=== PATIENT | male | born 1935 | race Caucasian/White ===

== ENCOUNTER 2017-09-13 08:54 | Observation (INO) | payer MEDICARE ==
[2017-09-13] MEDS ORDERED: Nitroglycerin 0.4 MG TAB (25 Tab Bottle) ONE (09:09)
[2017-09-13] MEDS ORDERED: Nitroglycerin 2% Ointment 1 INCH/1 GM Packet ONE (09:09)
[2017-09-13] MEDS ORDERED: Labetalol HCl 100 MG/20 ML VIAL ONE (09:09)
[2017-09-13 09:45] LABS: ALT (SGPT) 18 U/L (8-55); AST (SGOT) 26 U/L (5-34); Albumin 4.3 g/dL (3.4-4.8); Alkaline Phosphatase 59 U/L (40-150); Anion Gap 14 mmol/L (10-20); BUN (Urea Nitrogen) 35 mg/dL (8.4-25.7); Bilirubin, Total 0.8 mg/dL (0.2-1.2); CK (CPK) 87 U/L (30-200); Calc. Creatinine Clearance 0 mL/min (70-130); Calcium 9.9 mg/dL (7.8-10.44); Carbon Dioxide 26 mmol/L (23-31); Chloride 106 mmol/L (98-107); Estimated GFR-MDRD 32; Globulin 3.2 g/dL (2.4-3.5); Glucose 126 mg/dL (83-110); Potassium 5.2 mmol/L (3.5-5.1); Protein, Total 7.5 g/dL (5.8-8.1); Sodium 141 mmol/L (136-145)
[2017-09-13 09:47] LABS: Band 6 % (5-11); Eosinophils 3 % (0-10); Hemoglobin 13.5 g/dL (14.0-18.0); Lymphocytes 46 % (21-51); MDiff Complete? YES; Mean Corpuscular Volume 87.6 fl (80.0-94.0); Mean Platelet Volume 9.6 fL (7.4-10.4); Monocytes 11 % (0-10); Neutrophil 34 % (42-75); PLT Morphology Comment Appears Decreased; Platelet Count 68 thou/uL (130-400); RBC Distribution Width 18.2 % (11.5-14.5); Red Blood Cell (RBC) Count 4.65 mill/uL (4.70-6.10)
[2017-09-13 09:52] LABS: Troponin I 0.035 ng/mL (< 0.028)
[2017-09-13 09:54] LABS: CKMB 7.4 ng/mL (0-6.6)
--- NOTE | 2017-09-13 10:21 | RAD ---
CHEST 1 VIEW: HISTORY: Chest pain. COMPARISON: 03/19/17. FINDINGS: Cardiac silhouette is magnified and enlarged. Shallow inspiration accentuates the pulmonary markings . Mediastinum is midline. Postoperative changes and dual-lead left subclavian cardiac electronic de vice are in place. cardiac monitor technician leads overlie the chest. IMPRESSION: Cardiomegaly. Chronic-type findings are stable. POS: [facility]
--- NOTE | 2017-09-13 13:21 | PDOC.EVN ---
Event Note - Event Note Event Note: [id number] H&P DICTATED 1. htn UNCONTROLLED 2.CKD 3. H/O CAD plan; see orders
[2017-09-13] MEDS ORDERED: Ondansetron HCl/PF 4 MG/2 ML Vial IVP PRN (13:22)
[2017-09-13] MEDS ORDERED: HYDROcodone/Acetaminophen 5/325 mg Tablet PO PRN (13:22)
[2017-09-13] MEDS ORDERED: Acetaminophen 325 MG TAB PO PRN (13:22)
[2017-09-13] MEDS ORDERED: hydrALAZINE 20 MG/ML VIAL SLOW IVP PRN (13:26)
[2017-09-13 16:08] LABS: Troponin I 0.047 ng/mL (< 0.028)
--- NOTE | 2017-09-13 18:49 | HP ---
DATE OF ADMISSION: 09/13/2017 CHIEF COMPLAINT: Elevated blood pressure. HISTORY OF PRESENT ILLNESS: The patient is an 82-year-old male with past medical history of hypertension, coronary artery disease, aortic stenosis, congestive heart failure, prostate CA, atrial fibrillation, now came to the hospital complaining of elevated blood pressure. The patient said he checked his blood pressure at home and it was elevated. Patient denies any palpation. Denies any dizziness. Blood pressure was around 200/120, that is why he came to the ER. Denies any nausea, denies any vomiting, denies any diarrhea, denies any bloody stools, denies any black stools. PAST MEDICAL HISTORY: As per HPI. PAST SURGICAL HISTORY: Aortic valve replacement, prostatectomy, cardiac ablation, and CABG. SOCIAL HISTORY: Denies smoking, denies alcohol, denies any drugs at this time, but drinks wine one to two glasses every day. MEDICATIONS: Reviewed. ALLERGIES: Allergies reviewed. REVIEW OF SYSTEMS: Constitutional: Denies any fever, denies any chills. Eyes : No vision problems. He denies hearing loss. Denies neck pain. Cardiovascular System: Denies any chest pain. Respiratory System: Denies any cough, expectoration. Gastrointestinal: Denies nausea or vomiting. Musculoskeletal: Denies any joint deformities. Integumentary: Denies any rash. Genitourinary: Denies dysuria. All other review of systems are reviewed and are negative. PHYSICAL EXAMINATION: CONSTITUTIONAL/VITAL SIGNS: At the time of H and P performed, blood pressure initially was 180/100, came down to 140/90, respiratory rate 18. GENERAL: The patient appears comfortable. HEENT: Pupils equal, round, and reactive. Anterior naris patent. NECK: Supple, no JVD. CARDIOVASCULAR SYSTEM: S1, S2 present. Regular rate and rhythm. Positive for murmurs, no rubs, no gallops. RESPIRATORY SYSTEM: No wheezing, no rhonchi. Breath sounds present bilaterally. GASTROINTESTINAL: Abdomen is soft, nontender, no guarding, no organomegaly, no masses felt. MUSCULOSKELETAL: No edema, chronic skin changes seen. PSYCHIATRIC: Mood is appropriate at this time. INTEGUMENT: Positive for chronic skin changes. GENITOURINARY: No suprapubic tenderness. LABORATORY DATA: At the time of H&P performed, sodium 141, potassium 5.2, chloride 106, CO2 of 26, BUN of 35, creatinine 2.03, troponin 0.040. BNP 258. White count 2, hemoglobin 13.5, platelet count is 68. Chest x-ray, no obvious infiltrates seen. ASSESSMENT AND PLAN: The patient is 88 years old male, 1. Hypertension, uncontrolled. Blood pressure improved at this time. Monitor blood pressure. We will continue home medications. We will do p.r.n. clonidine also. 2. Abnormal cardiac enzymes. Monitor serial cardiac enzymes, no further workup needed at this time. might be secondary to uncontrolled hypertension. We will monitor. 3. Chronic kidney disease, stage 4. Monitor creatinine closely. Repeat BMP in a.m. We will go ahead and consult Nephrology if creatinine worsens. 4. History of coronary artery disease. Continue aspirin. 5. Mild hyperkalemia, monitor level at this time. 6. History of atrial fibrillation, monitor heart rate. Place patient on telemetry. The case was discussed in detail with the patient. ELKIN
[2017-09-13 18:56] VITALS: BMI 29.3
[2017-09-13] MEDS: Apixaban 5 MG TAB PO SCH (20:19)
[2017-09-13] MEDS: Carvedilol 25 MG TAB PO SCH (20:20)
[2017-09-13] MEDS ORDERED: Calcium Chloride 1 GM/10 ML Abboject SYRINGE ONE (21:06)
[2017-09-13 22:12] LABS: Troponin I 0.062 ng/mL (< 0.028)
[2017-09-14 05:29] LABS: Anion Gap 13 mmol/L (10-20); BUN (Urea Nitrogen) 32 mg/dL (8.4-25.7); Calc. Creatinine Clearance 39 mL/min (70-130); Calcium 9.2 mg/dL (7.8-10.44); Carbon Dioxide 26 mmol/L (23-31); Chloride 106 mmol/L (98-107); Estimated GFR-MDRD 34; Glucose 105 mg/dL (83-110); Potassium 4.5 mmol/L (3.5-5.1); Sodium 140 mmol/L (136-145)
[2017-09-14 06:30] LABS: Band 2 % (5-11); Eosinophils 1 % (0-10); Hemoglobin 11.9 g/dL (14.0-18.0); Lymphocytes 31 % (21-51); MDiff Complete? YES; Mean Corpuscular HGB CONC 33.9 g/dL (32.0-36.0); Mean Corpuscular Hemoglobin 29.7 pg (27.0-31.0); Mean Corpuscular Volume 87.4 fl (80.0-94.0); Mean Platelet Volume 9.6 fL (7.4-10.4); Monocytes 23 % (0-10); Neutrophil 41 % (42-75); PLT Morphology Comment Appears Decreased; Platelet Count 64 thou/uL (130-400); RBC Distribution Width 17.8 % (11.5-14.5); Reactive Lymphocytes 2 % (0-10); Red Blood Cell (RBC) Count 3.99 mill/uL (4.70-6.10); White Blood Cell (WBC) Count 2.8 thou/uL (4.8-10.8)
[2017-09-14] MEDS ORDERED: Furosemide 40 MG TAB PO SCH (07:30)
[2017-09-14] MEDS: Carvedilol 25 MG TAB PO SCH (08:33)
[2017-09-14] MEDS: Apixaban 5 MG TAB PO SCH (08:34)
[2017-09-14] MEDS ORDERED: Atorvastatin Calcium 20 MG TAB PO SCH (09:00)
[2017-09-14] MEDS ORDERED: Calcitriol 0.25 MCG CAP PO SCH (09:00)
[2017-09-14] MEDS ORDERED: Aspirin 81 mg Enteric Coated Tablet PO SCH (09:00)
[2017-09-14] MEDS ORDERED: NIFEdipine XL 60 MG TAB PO SCH (09:00)
[2017-09-14] MEDS ORDERED: Gabapentin 300 MG CAP PO SCH ×2 (11:45→21:00)
[2017-09-14 12:26] VITALS: TEMP 97.5
--- NOTE | 2017-09-14 13:08 | PDOC.PN ---
- Subjective Encounter Start Date: 09/14/17 Encounter Start Time: 13:07 Subjective: Seen and examined eager to go home - Objective Vital Signs & Weight: Vital Signs (12 hours) Temp Pulse Resp BP Pulse Ox 09/14/17 12:02 97.5 F L 85 16 180/90 H 98 09/14/17 08:34 71 09/14/17 08:05 97.4 F L 71 16 09/14/17 07:38 97.4 F L 70 16 159/86 H 94 L 09/14/17 03:15 98.8 F 71 16 168/79 H 93 L Weight Weight 198 lb 14.4 oz I&O: 09/13/17 09/14/17 09/15/17 06:59 06:59 06:59 Intake Total 240 Output Total 900 500 Balance -660 -500 Result Diagrams: 09/14/17 04:30 09/14/17 04:30 Phys Exam - Physical Examination Constitutional: NAD HEENT: PERRLA, moist MMs, sclera anicteric, oral pharynx no lesions Neck: no nodes, no JVD, supple, full ROM Respiratory: no wheezing, no rales, no rhonchi, clear to auscultation bilateral Cardiovascular: RRR, no significant murmur, no rub Gastrointestinal: soft, non-tender, no distention, positive bowel sounds Musculoskeletal: no edema, pulses present Dx/Plan (1) Acute diastolic (congestive) heart failure Code(s): I50.31 - ACUTE DIASTOLIC (CONGESTIVE) HEART FAILURE Status: Acute (2) CAD (coronary artery disease) Code(s): I25.10 - ATHSCL HEART DISEASE OF [place] CORONARY ARTERY W/O ANG PCTRS Status: Chronic Qualifiers: (3) CKD (chronic kidney disease) stage 3, GFR 30-59 ml/min Code(s): N18.3 - CHRONIC KIDNEY DISEASE, STAGE 3 (MODERATE) Status: Chronic (4) Dyslipidemia Code(s): E78.5 - HYPERLIPIDEMIA, UNSPECIFIED Status: Chronic (5) HTN (hypertension) Code(s): I10 - ESSENTIAL (PRIMARY) HYPERTENSION Status: Chronic Qualifiers: - Plan plan discussed w/ family, PT/OT, social work nurse Increase coreg to 25mg Bid--give extra dose of 12.5mg now -: Dispo planning * .
[2017-09-14] MEDS ORDERED: Carvedilol 6.25 MG TAB PO SCH (13:15)
[2017-09-14 14:34] VITALS: BP 138/70
[2017-09-14] MEDS ORDERED: Carvedilol 25 MG TAB PO SCH (21:00)
--- NOTE | 2017-09-15 14:06 | DIS ---
For details of the history and physical, refer to dictations on record. SUMMARY: This is an 82-year-old gentleman who presented here with elevated blood pressure, got admit maria g for management of this blood pressure. The patient responded very well to resumption of patient' s home antihypertensive medication. Coreg was subsequently increased to 25 mg b.i.d. The patient is very eager to go home and was subsequently discharged on the following medications: Eliquis 2.5 mg b.i.d., aspirin 81 mg, atorvastatin 20 mg, calcitriol 0.25 mcg, Coreg 25 mg p.o. b.i.d., vitamin B12 500 mg p.o. b.i.d., furosemide 40 mg p.o. daily, Neurontin 600 mg p.o. b.i.d., magnesium oxide, potas sium 9 p.o. daily, and Flomax 0.4 mg p.o. daily. DISCHARGE INSTRUCTIONS: 1. Patient to follow up with primary care physician. 2. Patient to represent here in case of any relapse or deterioration in clinical condition. Total time spent including [id number] encounter was 31 minutes.
--- NOTE | 2017-11-12 14:38 | EKG ---
Test Reason : Blood Pressure : / mmHG Vent. Rate : 088 BPM Atrial Rate : 088 BPM P-R Int : 162 ms QRS Dur : 166 ms QT Int : 440 ms P-R-T Axes : 035 -82 110 degrees QTc Int : 532 ms AV sequential or dual chamber electronic pacemaker Confirmed by KHADRA MONTEMAYOR, KELY Cr ([id number]), assignment editor KURT BAUTISTA ([id number]) on 11/12/2017 2:38:07 PM Referred By: Confirmed By:KELY GAVIRIA MD
== END 2017-09-14 16:18 | disposition home or self-care (01) ==
LOC: ERS 08:54 → ERHOLD 10:52 → INTOOBSV 10:52 → 2SW 18:52
PROVIDERS: ADMIT Internal Medicine; ATTEND Internal Medicine
DX: I13.0 Hypertensive heart and chronic kidney disease with heart failure and stage 1 through stage 4 chronic kidney disease, or unspecified chronic kidney disease (principal); N18.3 Chronic kidney disease, stage 3 (moderate); I50.31 Acute diastolic (congestive) heart failure; I25.10 Atherosclerotic heart disease of native coronary artery without angina pectoris; I35.0 Nonrheumatic aortic (valve) stenosis; I48.91 Unspecified atrial fibrillation; E87.5 Hyperkalemia; Z88.0 Allergy status to penicillin; Z88.8 Allergy status to other drugs, medicaments and biological substances; Z98.49 Cataract extraction status, unspecified eye; Z95.0 Presence of cardiac pacemaker; Z95.2 Presence of prosthetic heart valve; Z95.1 Presence of aortocoronary bypass graft; Z90.79 Acquired absence of other genital organ(s); Z89.421 Acquired absence of other right toe(s); Z98.890 Other specified postprocedural states
CPT/HCPCS: 71045; 80048; 80053; 82550; 82553; 83880; 84484 ×2; 85025 ×2; 93005; 96374; 99285; G0378; 36415

== ENCOUNTER 2017-09-20 17:48 | Emergency (ER) | payer MEDICARE ==
[2017-09-20 18:41] LABS: Hemoglobin 13.1 g/dL (14.0-18.0); Mean Corpuscular HGB CONC 32.4 g/dL (32.0-36.0); Mean Corpuscular Volume 89.7 fl (80.0-94.0); Mean Platelet Volume 9.5 fL (7.4-10.4); Platelet Count 72 thou/uL (130-400); RBC Distribution Width 18.1 % (11.5-14.5); Red Blood Cell (RBC) Count 4.51 mill/uL (4.70-6.10); White Blood Cell (WBC) Count 2.3 thou/uL (4.8-10.8)
[2017-09-20 18:51] LABS: ALT (SGPT) 15 U/L (8-55); AST (SGOT) 22 U/L (5-34); Albumin 4.1 g/dL (3.4-4.8); Alkaline Phosphatase 58 U/L (40-150); Anion Gap 12 mmol/L (10-20); BUN (Urea Nitrogen) 23 mg/dL (8.4-25.7); Bilirubin, Total 0.9 mg/dL (0.2-1.2); Calc. Creatinine Clearance 0 mL/min (70-130); Calcium 9.2 mg/dL (7.8-10.44); Carbon Dioxide 26 mmol/L (23-31); Chloride 110 mmol/L (98-107); Estimated GFR-MDRD 41; Globulin 3.1 g/dL (2.4-3.5); Glucose 107 mg/dL (83-110); Potassium 5.1 mmol/L (3.5-5.1); Protein, Total 7.2 g/dL (5.8-8.1); Sodium 143 mmol/L (136-145)
[2017-09-20 18:56] LABS: Anisocytosis MODERATE=16-30 cells (100X) (0-5/hpf); Band 6 % (5-11); Elliptocytes SLIGHT = 2-5 cells (100X) (0-1/hpf); Eosinophils 2 % (0-10); Lymphocytes 27 % (21-51); MDiff Complete? YES; Monocytes 8 % (0-10); Neutrophil 40 % (42-75); Ovalocytes SLIGHT = 2-5 cells (100X) (0-1/hpf); PLT Morphology Comment Appears Decreased; Polychromasia SLIGHT = 2-3 cells (100X) (0-2/hpf); Reactive Lymphocytes 17 % (0-10); Tear Drops SLIGHT = 2-5 cells (100X) (0-1/hpf)
[2017-09-20 19:00] LABS: CKMB 5.4 ng/mL (0-6.6); Troponin I 0.064 ng/mL (< 0.028)
--- NOTE | 2017-09-20 19:13 | RAD ---
PORTABLE CHEST: Date: 09/20/17 HISTORY: High blood pressure. COMPARISON: 09/13/17. FINDINGS: Heart size appears slightly enlarged. Postop sternotomy change and pacemaker. The lungs are clear of infiltrates. No signs of failure. IMPRESSION: Stable chest. POS: [facility]
== END 2017-09-20 19:49 | disposition home or self-care (01) ==
LOC: ERS 17:48
DX: I10 Essential (primary) hypertension (principal); I25.10 Atherosclerotic heart disease of native coronary artery without angina pectoris; I48.91 Unspecified atrial fibrillation; E11.9 Type 2 diabetes mellitus without complications; Z79.899 Other long term (current) drug therapy; Z79.82 Long term (current) use of aspirin
CPT/HCPCS: 36415; 71045; 80053; 82553; 84484; 85025; 93005

== ENCOUNTER 2017-12-07 11:56 | Day surgery (SDC) | payer MEDICARE ==
[2017-12-07] MEDS ORDERED: Phenylephrine 2.5% Ophth Soln 5 ML BOT ONE (12:11)
== END 2017-12-07 13:40 | disposition home or self-care (01) ==
LOC: SDC/OP 11:56
PROVIDERS: ATTEND Ophthalmology
PROC: 085K3ZZ Destruction of Left Lens, Percutaneous Approach (ICD-10-PCS; principal; 2017-12-07)
PROC: 085J3ZZ Destruction of Right Lens, Percutaneous Approach (ICD-10-PCS; 2017-12-07)
DX: H26.493 Other secondary cataract, bilateral (principal); I10 Essential (primary) hypertension; Z88.0 Allergy status to penicillin; Z88.8 Allergy status to other drugs, medicaments and biological substances; Z79.82 Long term (current) use of aspirin; Z79.899 Other long term (current) drug therapy; Z98.41 Cataract extraction status, right eye; Z98.42 Cataract extraction status, left eye; Z96.1 Presence of intraocular lens

== ENCOUNTER 2017-12-30 10:43 | Day surgery (SDC) | payer MEDICARE ==
[2017-12-30] MEDS ORDERED: Phenylephrine 2.5% Ophth Soln 5 ML BOT ONE (11:14)
[2017-12-30] MEDS ORDERED: Proparacaine 0.5% Opth 15 ML BOT ONE (12:41)
== END 2017-12-30 13:10 | disposition home or self-care (01) ==
LOC: SDC 10:43
PROVIDERS: ATTEND Ophthalmology
PROC: 085K3ZZ Destruction of Left Lens, Percutaneous Approach (ICD-10-PCS; principal; 2017-12-30)
PROC: 085J3ZZ Destruction of Right Lens, Percutaneous Approach (ICD-10-PCS; 2017-12-30)
DX: H26.493 Other secondary cataract, bilateral (principal); I10 Essential (primary) hypertension; Z79.82 Long term (current) use of aspirin; Z79.899 Other long term (current) drug therapy; Z88.0 Allergy status to penicillin; Z88.8 Allergy status to other drugs, medicaments and biological substances; Z98.41 Cataract extraction status, right eye; Z98.42 Cataract extraction status, left eye; Z96.1 Presence of intraocular lens

== ENCOUNTER 2018-08-18 16:40 | Inpatient (IN) | payer MEDICARE ==
[2018-08-18 17:31] LABS: #Basophils 0.1 thou/uL (0.0-0.2); #Lymphocytes 0.3 thou/uL (1.20-3.40); #Monocytes 1.2 thou/uL (0.11-0.59); #Neutrophils 6.5 thou/uL (1.40-6.50); %Basophils 1.7 % (0.0-1.0); %Eosinophils 0.2 % (0.0-10.0); %Lymphocytes 3.8 % (21.0-51.0); %Monocytes 14.9 % (0.0-10.0); %Neutrophils 79.4 % (42.0-75.0); Hemoglobin 10.5 g/dL (14.0-18.0); Mean Corpuscular HGB CONC 34.3 g/dL (32.0-36.0); Mean Corpuscular Hemoglobin 32.5 pg (27.0-31.0); Mean Corpuscular Volume 94.5 fL (78.0-98.0); Mean Platelet Volume 7.9 fL (7.4-10.4); Platelet Count 113 thou/uL (130-400); Red Blood Cell (RBC) Count 3.23 mill/uL (4.70-6.10); White Blood Cell (WBC) Count 8.1 thou/uL (4.8-10.8)
[2018-08-18 17:52] LABS: ALT (SGPT) 16 U/L (8-55); AST (SGOT) 19 U/L (5-34); Albumin 3.3 g/dL (3.4-4.8); Alkaline Phosphatase 54 U/L (40-150); Anion Gap 15 mmol/L (10-20); BUN (Urea Nitrogen) 75 mg/dL (8.4-25.7); Bilirubin, Total 1.3 mg/dL (0.2-1.2); Calc. Creatinine Clearance 0 mL/min (70-130); Calcium 8.7 mg/dL (7.8-10.44); Carbon Dioxide 20 mmol/L (23-31); Chloride 108 mmol/L (98-107); Estimated GFR-MDRD 24; Glucose 142 mg/dL (83-110); Potassium 4.9 mmol/L (3.5-5.1); Protein, Total 6.3 g/dL (5.8-8.1); Sodium 138 mmol/L (136-145)
--- NOTE | 2018-08-18 19:20 | RAD ---
PORTABLE CHEST: 08/18/2018 PROVIDED CLINICAL HISTORY: Hypotension. COMPARISON: 12/30/2017 FINDINGS: The cardiac silhouette appears enlarged. Median sternotomy changes are seen. Left subclavian cardia c pacing device and atherosclerosis are redemonstrated. Consolidation in the left upper lung zone is noted, compatible with pneumonia in the appropriate clinical context. The lungs appear otherwise cl ear. No pleural fluid or pneumothorax apparent. IMPRESSION: Left upper lung zone consolidation, compatible with pneumonia in the appropriate clinical context. Followup after treatment is recommended to evaluate for resolution. POS: [facility]
[2018-08-18 19:27] LABS: Bilirubin Negative (Negative); Blood, Urine Negative (Negative); Clarity CLEAR (Clear); Glucose, Urine (Dipstick) Negative (Negative); Leukocyte Negative (Negative); Nitrite Negative (Negative); Protein, Urine (Dipstick) Negative (Neg-Trace); Specific Gravity, Urine 1.017 (1.002-1.036); pH, Urine 5.5 (5.0-9.0)
[2018-08-18] MEDS ORDERED: cefTRIAXone\\ROCEPHIN 2 GM VIAL ONE (20:42)
[2018-08-18] MEDS ORDERED: Azithromycin 500 MG VIAL ONE (20:42)
[2018-08-18] MEDS ORDERED: Bisacodyl 5 MG TAB PO PRN (23:37)
[2018-08-18] MEDS ORDERED: Guaifenesin DM 100-10/5 ML UDCUP PO PRN (23:37)
[2018-08-18] MEDS ORDERED: Ondansetron ODT 4 MG TAB PO PRN (23:37)
[2018-08-18] MEDS ORDERED: Acetaminophen 650 MG Suppository PR PRN (23:37)
[2018-08-18] MEDS ORDERED: Ondansetron PF 4 MG/2 ML Vial IVP PRN (23:37)
[2018-08-18] MEDS ORDERED: Senokot S 8.6-50 MG TAB PO PRN (23:37)
[2018-08-18] MEDS: Oseltamivir 75 MG CAP PO SCH (23:42)
[2018-08-19 00:25] LABS: Carboxyhemoglobin (COHb) 1.5 gm% (0.0-3.0); Hemoglobin (Hb) 11.3 g/dL (14.0-18.0); Potassium - ABG Lab 5.06 mmol/L (3.70-5.30)
[2018-08-19] MEDS: Sodium Chloride 0.9% 1,000 ML IV SCH ×2 (00:59→21:09)
[2018-08-19 03:31] LABS: O2 Tension (PaO2) 59.2 mmHg (> 60.0); Puncture Site RBRACHIAL
[2018-08-19 05:40] LABS: ALT (SGPT) 15 U/L (8-55); AST (SGOT) 17 U/L (5-34); Alkaline Phosphatase 53 U/L (40-150); Anion Gap 14 mmol/L (10-20); BUN (Urea Nitrogen) 77 mg/dL (8.4-25.7); BUN/Creatinine Ratio 29.85; Bilirubin, Total 1.4 mg/dL (0.2-1.2); Calc. Creatinine Clearance 29 mL/min (70-130); Calcium 8.2 mg/dL (7.8-10.44); Carbon Dioxide 21 mmol/L (23-31); Chloride 109 mmol/L (98-107); Estimated GFR-MDRD 24; Globulin 2.9 g/dL (2.4-3.5); Glucose 147 mg/dL (83-110); Phosphorus 3.8 mg/dL (2.3-4.7); Protein, Total 5.9 g/dL (5.8-8.1); Sodium 139 mmol/L (136-145)
[2018-08-19 05:55] LABS: Band 25 % (5-11); Hemoglobin 9.8 g/dL (14.0-18.0); Lymphocytes 5 % (21-51); MDiff Complete? YES; Mean Corpuscular HGB CONC 33.2 g/dL (32.0-36.0); Mean Corpuscular Hemoglobin 31.9 pg (27.0-31.0); Mean Corpuscular Volume 96.2 fL (78.0-98.0); Mean Platelet Volume 8.1 fL (7.4-10.4); Monocytes 19 % (0-10); Neutrophil 51 % (42-75); Platelet Count 110 thou/uL (130-400); Platelet Morphology Comment Appears Decreased; RBC Distribution Width 15.4 % (11.5-14.5); Red Blood Cell (RBC) Count 3.07 mill/uL (4.70-6.10); White Blood Cell (WBC) Count 9.7 thou/uL (4.8-10.8)
--- NOTE | 2018-08-19 08:10 | HP ---
CHIEF COMPLAINT: Hypotension. HISTORY OF PRESENT ILLNESS: This is an 83-year-old male with past medical history of coronary artery disease, atrial fibrillation, hypertension, prostate CA with resection, peripheral vascular disease, neuropathy, status post pacemaker, presenting with hypotension. Per the patient, he has not been feeling well in the past couple of days. The patient states that he started getting jitters and he could not control himself. The patient stated that he started fidgeting, having intense jitters and that has been ongoing for the past 3 weeks. The patient states that he checked his blood pressure on the day of admission and felt his blood pressure was low. The patient states that he has also been sleeping a lot more and he has been having productive cough, orange in color, and subjective fevers. Per the patient, he states that he recently noted that he has been very weak. He has not been able to really walk. He has been having bilateral knee problems and feeling very weak. Per records, the patient had a fever that was measured at 101 on the day of admission. At this time, the patient denies any headaches, chest pain, palpitations, abdominal pain, dysuria, hematuria, hematochezia, nausea, vomiting, constipation, or diarrhea. However, the patient admits to having generalized weakness, productive cough, fever, and chills. Of note, the patient was recently seen in our hospital on September 13, 2017, and the patient was seen for elevated blood pressure during that time, in which we adjusted the patient's blood pressure medications. REVIEW OF SYSTEMS: Positive for fever, chills, generalized weakness, productive cough. Otherwise as documented in the HPI, all other systems has been reviewed and are negative. PAST MEDICAL HISTORY: Coronary artery disease; atrial fibrillation; hypertension; prostate CA, status post surgery; peripheral vascular disease; neuropathy; and pacemaker. FAMILY HISTORY: Reviewed and noncontributory to this visit. PAST SURGICAL HISTORY: The patient has cataract bilaterally, prostatectomy, right digit amputation, cardiac ablation in the past, CABG x2, and valvular replacement. PSYCHIATRIC HISTORY: No psychiatric history. SOCIAL HISTORY: The patient drinks daily. The patient denies any illicit drugs. The patient denies any smoking history and the patient lives at home. ALLERGIES: THE PATIENT IS ALLERGIC TO AMBIEN AND PENICILLIN. CURRENT MEDICATIONS: The patient takes; 1. Carvedilol 25 mg. 2. Atorvastatin 20 mg. 3. Gabapentin 600 mg. 4. Restasis 0.4 mL in both eyes. 5. Furosemide 40 mg. 6. Nifedipine 30 mg. 7. Losartan 50 mg. 8. Eliquis 2.5 mg. PHYSICAL EXAMINATION: VITAL SIGNS: The patient's blood pressure is 125/70, pulse is 82, respiratory rate of 20, temperature of 99.4, and oxygen saturation of 98% on non-breather. GENERAL: The patient is awake, alert, and oriented x3. The patient is on currently on the BiPAP. The patient has been admitted to the ICU. The patient is able to speak to me in full sentences and not in any distress. HEENT: Normocephalic, atraumatic. Pupils are equally round and reactive to light. Extraocular movements are intact. No scleral icterus. No conjunctival pallor. Mucous membranes are dry. NECK: Trachea is midline. Full range of motion. No JVD. Supple. LUNGS: The patient has bilateral wheezes at the anterior lung pastrana and crackles at the posterior lungs at the bases. CARDIAC: Positive S1 and S2. Regular rate and rhythm. No murmurs, no gallops, no rubs are appreciated. ABDOMEN: Soft, nontender, and nondistended. Positive bowel sounds in all quadrants. EXTREMITIES: The patient has 5/5 upper extremity strength and 5/5 lower extremity strength. No edema noted at the lower extremities. The patient has good pulses bilaterally at the upper and lower extremities. NEUROLOGIC: Cranial nerves II through XII grossly intact. No neurologic deficits noted. PSYCH: The patient has normal affect, pleasant, alert, and oriented x3. SKIN: Dry, warm, and intact. LABORATORY DATA: 1. WBC is 8.1, hemoglobin is 10.5, hematocrit is 30.5, MCV 94.5, RDW is 15.0, and platelet count is 113. 2. ABGs; pH is 7.40, pCO2 is 33.0, and pO2 is 69.2. 3. Electrolytes; sodium is 138, potassium is 4.9, chloride is 108, carbon dioxide of 20, anion gap of 15, BUN is 75, creatinine is 2.61, and glucose is 142. IMAGING DATA: Chest x-ray showed left upper lung zone consolidation compatible with pneumonia. ASSESSMENT AND PLAN: This is an 83-year-old male with multiple comorbidities, being admitted for; 1. Acute hypoxemic respiratory failure likely due to pneumonia and flu. At this point, the patient has been put on BiPAP. The patient has been transferred to the ICU. We will monitor the patient's oxygenation. We will follow up morning ABGs. 2. Sepsis secondary to influenza. At this point, we will start the patient on Tamiflu. We will continue the patient on Tamiflu. Give the patient IV hydration and we will continue the patient on oxygenation. We will follow up on morning labs. We will give p.r.n. medications for fever and chills. 3. Left lung pneumonia likely community-acquired pneumonia. At this point, the patient has been started on antibiotics. We will continue the patient on antibiotics. We will give the patient gentle hydration. We will give IV fluids. We will continue respiratory treatments. Pulmonology has been consulted. We will follow up with their recommendations. 4. Acute on chronic kidney disease. At this point, we are going to continue the patient on gentle hydration. We have consulted Nephrology. We will follow up on renal function test. We will continue to monitor the patient closely. We will hold any nephrotoxic medications and we will adjust all medications renally. 5. History of atrial fibrillation. We will continue the patient on home medications. 6. History of coronary artery disease. We will continue the patient on his home medications. 7. Hyperlipidemia. We will continue the patient on statins. 8. Hypertension. We will monitor the patient's blood pressure closely and we will treat the patient's blood pressure accordingly. 9. Deep vein thrombosis and gastrointestinal prophylaxis. Job ID: [id number]
[2018-08-19] MEDS: Aspirin 81 mg Enteric Coated Tablet PO SCH (08:57)
[2018-08-19] MEDS: Gabapentin 300 MG CAP PO SCH ×2 (08:57→21:09)
[2018-08-19] MEDS: Cyanocobalamin (Vitamin B-12) 1,000 MCG TAB PO SCH ×2 (08:58→21:09)
[2018-08-19] MEDS: Atorvastatin Calcium 20 MG TAB PO SCH (08:59)
[2018-08-19] MEDS: Famotidine 20 MG TAB PO SCH (08:59)
[2018-08-19] MEDS: Carvedilol 25 MG TAB PO SCH ×2 (08:59→21:09)
[2018-08-19] MEDS: Multivitamin W/ Minerals 1 TAB PO SCH (08:59)
[2018-08-19] MEDS: Magnesium Oxide 250 MG TAB PO SCH (09:00)
[2018-08-19] MEDS: Fish Oil 1,000 MG CAP PO SCH (09:00)
[2018-08-19] MEDS: Calcitriol 0.25 MCG CAP PO SCH (09:00)
[2018-08-19] MEDS: Apixaban 2.5 MG TAB PO SCH ×2 (09:00→21:09)
[2018-08-19] MEDS: cycloSPORINE 0.05% Ophthalmic Droperette EA EYE SCH ×2 (09:01→21:58)
[2018-08-19] MEDS: Oseltamivir 6 MG/ML ORAL SUSP PO SCH (09:15)
[2018-08-19] MEDS: Tamsulosin HCl 0.4 MG CAP PO SCH (10:38)
[2018-08-19] MEDS: Famotidine/PF 20 mg/2ml Vial SLOW IVP SCH (10:38)
--- NOTE | 2018-08-19 13:21 | CON ---
DATE OF CONSULTATION: 08/19/2018 35 minutes critical care time. REASON FOR CONSULTATION: Pneumonia and respiratory failure. HISTORY OF PRESENT ILLNESS: Mr. Jason is an 83-year-old male, who was brought into the hospital yesterday with a several-day history of cough, congestion, and mental status changes per the history and physical report. The patient was initially admitted to the floor, had to be brought back to the [facility], to be placed on BiPAP. He has an x-ray showing a rather impressive left upper lobe pneumonia. He also tested positive for type B flu. He denies any previous history of lung problems. He does have a history of cardiac issues including a valve replacement surgery and coronary artery bypass grafting surgery. PAST MEDICAL HISTORY: 1. Coronary artery disease. 2. Valvular heart disease. 3. Neuropathy. PAST SURGICAL HISTORY: 1. Coronary artery bypass grafting surgery. 2. Aortic valve replacement. 3. Prostatectomy. 4. Cardiac ablation. 5. Cataract surgery. PSYCHIATRIC HISTORY: Unremarkable. FAMILY MEDICAL HISTORY: Unremarkable. MEDICATIONS: Prior to admission; 1. Carvedilol 25 mg b.i.d. 2. Atorvastatin 20 mg daily. 3. Gabapentin 600 mg b.i.d. 4. Restasis eye drops. 5. Furosemide 40 mg daily. 6. Nifedipine 30 mg daily. 7. Losartan 50 mg daily. 8. Eliquis 2.5 mg twice daily. SOCIAL HISTORY: Drinks alcohol daily. Does not have any smoking history. Lives in [place]. Has lived in [facility] in the past. ALLERGIES: AMBIEN AND PENICILLIN. PHYSICAL EXAMINATION: VITAL SIGNS: Temperature 99.2, pulse 70, respirations 20, O2 saturation 95% on BiPAP, and blood pressure 113/54. GENERAL: He is awake, alert, sitting up, and in no distress. HEENT: Pupils react. Sclerae anicteric. Oropharynx clear. NECK: Without adenopathy or JVD. LUNGS: Coarse breath sounds bilaterally. CARDIOVASCULAR: S1 and S2 regular. ABDOMEN: Soft and nontender. EXTREMITIES: No clubbing or cyanosis. He has some stasis changes over his anterior lower tibial regions bilaterally. LABORATORY DATA: White blood cell count 9.7, hematocrit 29.5, and platelet count 110. PH 7.40, pCO2 of 33, PO2 of 59. Sodium 139, potassium 5, chloride 109, CO2 of 21, BUN 77, creatinine 2.5, glucose 147. IMAGING STUDIES: Chest x-ray shows a rather prominent left upper lobe infiltrate. He has pacemaker in place. He has sternal wires in place. ASSESSMENT: 1. Left upper lobe pneumonia. 2. Influenza type B. 3. Acute hypoxic respiratory failure. 4. Chronic atrial fibrillation. PLAN: The patient has been placed on Rocephin and Zithromax. He is also on Tamiflu. He will continue BiPAP as needed. He could probably use high-flow oxygen when he is able to come off the BiPAP. He probably should have been put in the ICU last night, but is doing stable in the IMCU at this time, so I would leave him here. I will check on him tomorrow. Job ID: [id number]
--- NOTE | 2018-08-19 14:06 | PDOC.PN ---
- Subjective Encounter Start Date: 08/19/18 Encounter Start Time: 07:00 Pt seen for followup re: acute hypoxic respiratory failure. Feels slightly better. Reports cough. Small amount of sputum. - Objective Resuscitation Status - Order Detail: 08/18/18 23:37 Resuscitation Status Routine Resuscitation Status: FULL: Full Resuscitation MAR Reviewed: Yes Vital Signs & Weight: Vital Signs (12 hours) Temp Pulse Resp BP Pulse Ox 08/19/18 12:00 76 20 118/55 L 90 L 08/19/18 08:00 99.2 F 70 20 113/54 L 95 08/19/18 07:51 69 20 08/19/18 05:19 76 24 H 08/19/18 05:00 98.5 F 70 22 H 116/59 L 95 08/19/18 04:35 99.1 F 78 24 H 111/48 L 95 08/19/18 04:00 99.1 F 71 19 145/74 H 95 08/19/18 03:03 95 Weight Weight 205 lb 8 oz I&O: 08/18/18 08/19/18 08/20/18 06:59 06:59 06:59 Intake Total 170 Output Total 150 Balance 20 Result Diagrams: 08/19/18 05:09 08/19/18 05:09 EKG Reviewed by me: Yes (Tele: AV-paced) Phys Exam - Physical Examination Constitutional: NAD HEENT: moist MMs, sclera anicteric, oral pharynx no lesions, 2+ tonsils Neck: no nodes, no JVD, supple, full ROM NOEMI bronchial breathing Cardiovascular: RRR, no rub S1, S2 Gastrointestinal: soft, non-tender, no distention, positive bowel sounds Neurological: moves all 4 limbs Psychiatric: normal affect, A&O x 3 Dx/Plan (1) Acute respiratory failure with hypoxia Code(s): J96.01 - ACUTE RESPIRATORY FAILURE WITH HYPOXIA Status: Acute Comment: secondary to pneumonia and influenza B (2) Pneumonia Code(s): J18.9 - PNEUMONIA, UNSPECIFIED ORGANISM Status: Acute Qualifiers: Laterality: left Lung location: upper lobe of lung Comment: continue IV antibiotics as below for suspected gram negative bacterial pneumonia (3) Acute worsening of stage 3 chronic kidney disease Code(s): N18.3 - CHRONIC KIDNEY DISEASE, STAGE 3 (MODERATE) Status: Acute Comment: monitor lytes, creatinine (4) Influenza B Code(s): J10.1 - FLU DUE TO OTH IDENT INFLUENZA VIRUS W OTH RESP MANIFEST Status: Acute Comment: continue tamiflu (5) Dyslipidemia Code(s): E78.5 - HYPERLIPIDEMIA, UNSPECIFIED Status: Chronic Comment: continue statin (6) HTN (hypertension) Code(s): I10 - ESSENTIAL (PRIMARY) HYPERTENSION Status: Chronic Qualifiers: Comment: controlled (7) Chronic diastolic heart failure Code(s): I50.32 - CHRONIC DIASTOLIC (CONGESTIVE) HEART FAILURE Status: Chronic Comment: stable - Plan * . Review of Systems - Review of Systems Constitutional: negative: fever, chills, sweats, weakness, malaise Respiratory: Cough, SOB with Excertion, Sputum. negative: Dry, Shortness of Breath, Hemoptysis, Pleuritic Pain, Wheezing Cardiovascular: negative: chest pain, palpitations, orthopnea, paroxysmal nocturnal dyspnea, edema, light headedness Gastrointestinal: negative: Nausea, Vomiting, Abdominal Pain, Diarrhea, Constipation, Melena, Hematochezia Genitourinary: negative: Dysuria, Frequency, Incontinence, Hematuria, Retention - Medications/Allergies Allergies/Adverse Reactions: Allergies Allergy/AdvReac Type Severity Reaction Status Date / Time Penicillins Allergy dyspnea Verified 09/13/17 21:11 zolpidem [From Ambien] Allergy "very Verified 09/13/17 21:11 loopy" Medications: Current Medications Acetaminophen (Tylenol) 650 mg PO Q4H PRN PRN Reason: Headache/Fever/Mild Pain (1-3) Acetaminophen (Tylenol) 650 mg PA Q4H PRN PRN Reason: Headache/Fever/Mild Pain (1-3) Apixaban (Eliquis) 2.5 mg PO BID [facility] Last Admin: 08/19/18 09:00 Dose: 2.5 mg Aspirin (Ecotrin) 81 mg PO DAILY [facility] Last Admin: 08/19/18 08:57 Dose: 81 mg Atorvastatin Calcium (Lipitor) 20 mg PO DAILY [facility] Last Admin: 08/19/18 08:59 Dose: 20 mg Bisacodyl (Dulcolax) 10 mg PO DAILYPRN PRN PRN Reason: Constipation Calcitriol (Rocaltrol) 0.25 mcg PO DAILY [facility] Last Admin: 08/19/18 09:00 Dose: 0.25 mcg Carvedilol (Coreg) 25 mg PO BID [facility] Last Admin: 08/19/18 08:59 Dose: 25 mg Cyanocobalamin (Vitamin B-12) 500 mcg PO BID [facility] Last Admin: 08/19/18 08:58 Dose: 500 mcg Cyclosporine (Restasis) 0 ml EA EYE BID [facility] Last Admin: 08/19/18 09:01 Dose: 0.4 ml Famotidine (Pepcid) 20 mg SLOW IVP QAM [facility] Last Admin: 08/19/18 10:38 Dose: Not Given Famotidine (Pepcid) 20 mg PO QAM [facility] Last Admin: 08/19/18 08:59 Dose: 20 mg Fish Oil (Fish Oil) 1,000 mg PO DAILY [facility] Last Admin: 08/19/18 09:00 Dose: 1,000 mg Gabapentin (Neurontin) 600 mg PO BID [facility] Last Admin: 08/19/18 08:57 Dose: 600 mg Guaifenesin/Dextromethorphan (Robitussin Dm) 15 ml PO Q4H PRN PRN Reason: Cough Sodium Chloride (Normal Saline 0.9%) 1,000 mls @ 70 mls/hr IV .[id number] [facility] Last Admin: 08/19/18 00:59 Dose: 1,000 mls Azithromycin 500 mg/ Sodium (Chloride) 250 mls @ 250 mls/hr IVPB Q24HR RYAN Ceftriaxone Sodium 2 gm/ (Sodium Chloride) 100 mls @ 200 mls/hr IVPB Q24HR [facility] Iron/Minerals/Multivitamins (Theragran M) 1 tab PO DAILY [facility] Last Admin: 08/19/18 08:59 Dose: 1 tab Magnesium Oxide (Magnesium Oxide) 500 mg PO DAILY [facility] Last Admin: 08/19/18 09:00 Dose: 500 mg Miscellaneous Medication (Pharmacy To Dose) 1 each IVPB PRN PRN PRN Reason: Pharmacy to dose Ondansetron HCl (Zofran Odt) 4 mg PO Q6H PRN PRN Reason: Nausea/Vomiting Ondansetron HCl (Zofran) 4 mg IVP Q6H PRN PRN Reason: Nausea/Vomiting Oseltamivir Phosphate (Tamiflu) 30 mg PO DAILY [facility] Stop: 08/23/18 09:01 Last Admin: 08/19/18 09:15 Dose: 30 mg Senna/Docusate Sodium (Senokot S) 2 tab PO BID PRN PRN Reason: Constipation Sodium Chloride (Flush - Normal Saline) 10 ml IVF Q12HR [facility] Last Admin: 08/19/18 09:01 Dose: 10 ml Sodium Chloride (Flush - Normal Saline) 10 ml IVF PRN PRN PRN Reason: Saline Flush Tamsulosin HCl (Flomax) 0.4 mg PO DAILY [facility] Last Admin: 08/19/18 10:38 Dose: 0.4 mg
--- NOTE | 2018-08-19 19:55 | CON ---
DATE OF CONSULTATION: 08/19/2018 CONSULTING PHYSICIAN: Dr. Cardoza. REQUESTING PHYSICIAN: Dr. Mariscal. REASON FOR CONSULTATION: Acute kidney injury. IMPRESSION: Acute on chronic kidney disease, this is likely hemodynamically and cytokine mediated injury in the context of recurrence of hypotension and pneumonia infection. PLAN: 1. Hemodynamic support with IV fluid. 2. Renally dose all medications and avoid potentially nephrotoxic agents. 3. Further management to be dependent on the clinical course. 4. We will hold losartan and Lasix for now. HISTORY: This is an 83-year-old gentleman, who presented here with not feeling well for the past couple of days. The patient also does complain of cough productive of yellowish sputum and has been expressive some weakness. The patient on presentation was noted to have elevated creatinine above 2, which is more as above the patient's creatinine of 1.9 range. As a result of these findings, decision has been taken to involve Renal in the management of this case. PAST MEDICAL HISTORY: Significant for coronary artery disease, atrial fibrillation, hypertension, prostate cancer status post surgery, and peripheral vascular disease. FAMILY HISTORY: No family history of kidney disease. REVIEW OF SYSTEMS: As documented in the body of history all other systems review were found, not to be significantly related to presenting illness. HOME MEDICATIONS: Reviewed and as documented on [facility]. SOCIAL HISTORY: No alcohol. No tobacco. No illicit drug use. PHYSICAL EXAMINATION: GENERAL: The patient was found to be in some respiratory distress, noted with following vital signs. VITAL SIGNS: Afebrile, temperature 99.2, pulse 70, respiratory rate of 20, O2 saturation 95% with blood pressure 132/54. HEENT: Unremarkable. CARDIOVASCULAR SYSTEM: First and second heart sounds were heard. RESPIRATORY SYSTEM: Revealed a lot of transmitted sounds from the high-flow nasal BiPAP. EXTREMITIES: No peripheral edema. NEUROLOGIC: Alert. No lateralizing signs. LYMPHATICS: No peripheral lymphadenopathy. SUMMARY: An 83-year-old gentleman, who presented here with cough productive of sputum, hypotension noted with elevated creatinine. Thank you for this consultation. We will follow with you. Job ID: [id number]
[2018-08-19] MEDS: cefTRIAXone\\ROCEPHIN 2 GM in Sodium Chloride 0.9% 100 ML IVPB SCH (21:10)
[2018-08-19] MEDS: Azithromycin 500 MG in Sodium Chloride 0.9% 250 ML 250 ML IVPB SCH (21:58)
[2018-08-19] MEDS ORDERED: Haloperidol Lactate 5 MG/ML VIAL IM PRN (23:10)
[2018-08-19] MEDS ORDERED: Haloperidol Lactate 5 MG/ML VIAL IM SCH (23:15)
--- NOTE | 2018-08-20 04:19 | CON ---
DATE OF CONSULTATION: HISTORY OF PRESENT ILLNESS: The patient is a very pleasant gentleman with a history of coronary artery disease status post coronary artery bypass surgery and aortic valve replacement who presented with dyspnea, fever, and productive sputum. The patient previously underwent coronary bypass graft surgery and aortic valve replacement in 2013. He had a saphenous vein graft to place the OM and diagonal branch. The patient also had placement of electronic pacemaker. The patient has a history of atrial fibrillation. He has been followed primarily by Dr. Pagan. The patient was in his usual state of health when he suddenly started having increasing dyspnea. He reported having fever and productive sputum. The patient denied having any chest discomfort. PAST MEDICAL HISTORY: 1. Coronary artery disease. 2. Aortic valve replacement. 3. Hypertension. 4. Peripheral vascular disease. 5. Prostate carcinoma. 6. History of TIA. 7. Hypertension. 8. Chronic renal insufficiency. PAST SURGICAL HISTORY: Toe amputation, cataract surgery, and aortic valve replacement. MEDICATIONS: 1. Lipitor 20 at bedtime. 2. Eliquis 2.5 daily. 3. Calcitriol 1 tablet daily. 4. Lasix 40 daily. 5. Nifedipine 1 tablet daily. 6. Gabapentin. SOCIAL HISTORY: Nonsmoker. ALLERGIES: AMBIEN AND PENICILLIN. REVIEW OF SYSTEMS: Ten-point systems otherwise unremarkable. PHYSICAL EXAMINATION: GENERAL: Obese gentleman in acute respiratory distress with a blood pressure of 113/54. NECK: Full. LUNGS: Coarse breath sounds bilaterally. HEART: Regular rate and rhythm. Normal S1 and S2 with a 1/6 systolic murmur. ABDOMEN: Distended. EXTREMITIES: Moderate bilateral edema. VASCULAR: Radial pulses are 2+. LABORATORY RESULTS: White blood cell count 9.7, hemoglobin 9.8, hematocrit 29.5 , platelets 110. Sodium 139, potassium 5.0, chloride 109, bicarb 21, BUN 77, creatinine 2.58. Troponin was 0.03298. His EKG revealed dual-chamber electronic pacemaker. Chest x-ray showed cardiomegaly with evidence of pulmonary consolidation. IMPRESSION: 1. Pneumonia/influenza. 2. Nonsustained ventricular tachycardia. 3. History of coronary artery bypass surgery x2. 4. History atrial fibrillation. 5. Hypertension. 6. Peripheral vascular disease. This gentleman was admitted with pneumonia and influenza. The patient was noted to have nonsustained ventricular tachycardia. We will check the patient's echocardiogram. The patient is on beta bonita therapy. We will follow this patient with you through his hospitalization. Job ID: [id number] MTDD
[2018-08-20] MEDS: Sodium Chloride 0.9% 1,000 ML IV SCH ×2 (04:54→17:52)
--- NOTE | 2018-08-20 09:40 | PRG ---
DATE OF SERVICE: 08/20/2018 SUBJECTIVE: He has worsened overnight in terms of oxygenation. He is requiring BiPAP at a fairly substantial FiO2. OBJECTIVE: VITAL SIGNS: Temperature 99.1, pulse 71, respiratory rate 24, and O2 saturations 97% on 70% FiO2 through BiPAP, and blood pressure 134/70. He will wake up, but apparently he has been intermittently agitated. HEENT: Unremarkable. NECK: No JVD. LUNGS: Crackles in the left side. Clear right. CARDIAC: S1 and S2, regular. ABDOMEN: Soft. EXTREMITIES: No edema. LABORATORY DATA: No labs were obtained today. ASSESSMENT: 1. Influenza. 2. Pneumonia. 3. Acute hypoxic respiratory failure. PLAN: Move over to the CCU. I will have x-rays and labs done stat today. The patient may end up needing intubated. Job ID: [id number]
[2018-08-20 09:51] LABS: Hemoglobin 9.5 g/dL (14.0-18.0); Mean Corpuscular HGB CONC 32.9 g/dL (32.0-36.0); Mean Corpuscular Hemoglobin 31.6 pg (27.0-31.0); Mean Corpuscular Volume 95.9 fL (78.0-98.0); Mean Platelet Volume 7.7 fL (7.4-10.4); Platelet Count 93 thou/uL (130-400); RBC Distribution Width 15.1 % (11.5-14.5); Red Blood Cell (RBC) Count 2.99 mill/uL (4.70-6.10); White Blood Cell (WBC) Count 8.3 thou/uL (4.8-10.8)
[2018-08-20 10:04] LABS: CO2 Tension 36.3 mmHg (35.0-45.0); Calcium, Ionized 1.09 mmol/L (1.12-1.30); Carboxyhemoglobin (COHb) 0.8 gm% (0.0-3.0); Hemoglobin (Hb) 9.7 g/dL (14.0-18.0); O2 Tension (PaO2) 62.7 mmHg (> 60.0); Potassium - ABG Lab 4.39 mmol/L (3.70-5.30); pH, Arterial 7.36 (7.35-7.45)
[2018-08-20 10:11] LABS: Anion Gap 16 mmol/L (10-20); BUN (Urea Nitrogen) 63 mg/dL (8.4-25.7); Calc. Creatinine Clearance 35 mL/min (70-130); Carbon Dioxide 19 mmol/L (23-31); Chloride 112 mmol/L (98-107); Estimated GFR-MDRD 29; Glucose 151 mg/dL (83-110); Potassium 4.6 mmol/L (3.5-5.1); Sodium 142 mmol/L (136-145)
[2018-08-20 10:14] LABS: Puncture Site LR
[2018-08-20 10:15] LABS: ALV-art Gradient 319.725 (0-20)
[2018-08-20 10:23] LABS: Band 23 % (5-11); Lymphocytes 7 % (21-51); MDiff Complete? YES; Monocytes 14 % (0-10); Neutrophil 56 % (42-75); Platelet Morphology Comment Appears Decreased; Polychromasia SLIGHT = 2-3 cells (100X) (0-2/hpf)
[2018-08-20] MEDS: Aspirin 81 mg Enteric Coated Tablet PO SCH (10:45)
[2018-08-20] MEDS: Apixaban 2.5 MG TAB PO SCH ×2 (10:45→21:35)
[2018-08-20] MEDS: Atorvastatin Calcium 20 MG TAB PO SCH (10:45)
[2018-08-20] MEDS: Calcitriol 0.25 MCG CAP PO SCH (10:45)
[2018-08-20] MEDS: Cyanocobalamin (Vitamin B-12) 1,000 MCG TAB PO SCH ×2 (10:46→21:35)
[2018-08-20] MEDS: Carvedilol 25 MG TAB PO SCH ×2 (10:46→21:16)
[2018-08-20] MEDS: Fish Oil 1,000 MG CAP PO SCH (10:46)
[2018-08-20] MEDS: Gabapentin 300 MG CAP PO SCH ×2 (10:46→21:16)
[2018-08-20] MEDS: Famotidine 20 MG TAB PO SCH (10:46)
[2018-08-20] MEDS: Multivitamin W/ Minerals 1 TAB PO SCH (10:47)
[2018-08-20] MEDS: Oseltamivir 6 MG/ML ORAL SUSP PO SCH ×2 (10:47→21:20)
[2018-08-20] MEDS: Tamsulosin HCl 0.4 MG CAP PO SCH (10:47)
[2018-08-20] MEDS: Magnesium Oxide 250 MG TAB PO SCH (10:47)
[2018-08-20] MEDS: Famotidine/PF 20 mg/2ml Vial SLOW IVP SCH (10:51)
[2018-08-20] MEDS: cycloSPORINE 0.05% Ophthalmic Droperette EA EYE SCH ×2 (10:52→21:35)
--- NOTE | 2018-08-20 11:12 | RAD ---
PORTABLE CHEST: Date: 08-20-18 Provided Clinical History: Pneumonia. FINDINGS: Comparison is made with the study dated 08-18-18. Cardiac silhouette remains enlarged. Median sternotomy changes are again seen. Left subclavian cardia c pacing device is again noted with leakage overlying the expected locations of RA and RV. Left upper lung zone consolidation redemonstrated, stable. Right lung remains clear. No pleural fluid or pneumo thorax apparent. IMPRESSION: Stable radiographic appearance of the chest. POS: [facility]
--- NOTE | 2018-08-20 17:24 | PDOC.PN ---
- Subjective Encounter Start Date: 08/20/18 Encounter Start Time: 10:00 Pt seen for followup re:acute hypoxic respiratory failure. On BiPAP,not answering questions, could not complete ROS. - Objective Resuscitation Status - Order Detail: 08/18/18 23:37 Resuscitation Status Routine Resuscitation Status: FULL: Full Resuscitation MAR Reviewed: Yes Vital Signs & Weight: Vital Signs (12 hours) Temp Pulse Resp BP Pulse Ox 08/20/18 16:00 98.6 F 08/20/18 14:11 79 30 H 08/20/18 12:00 98.1 F 08/20/18 10:19 98 08/20/18 10:12 77 22 H 97 08/20/18 09:30 99.2 F 77 20 134/70 97 08/20/18 08:00 99.1 F 71 24 H 134/70 97 08/20/18 07:51 71 25 H 97 Weight Weight 207 lb 11.2 oz Most Recent Monitor Data Heart Rate from ECG 86 NIBP 158/69 NIBP BP-Mean 98 Respiration from ECG 30 SpO2 92 I&O: 08/19/18 08/20/18 08/21/18 06:59 06:59 06:59 Intake Total 170 2510 Output Total 150 1110 400 Balance 20 1400 -400 Result Diagrams: 08/20/18 09:42 08/20/18 09:42 EKG Reviewed by me: Yes (Tele: AV-paced) Phys Exam - Physical Examination Obese HEENT: moist MMs Neck: supple NOEMI crackles Cardiovascular: RRR Gastrointestinal: soft Neurological: moves all 4 limbs Psychiatric: normal affect Dx/Plan (1) Acute respiratory failure with hypoxia Code(s): J96.01 - ACUTE RESPIRATORY FAILURE WITH HYPOXIA Status: Acute Comment: Worse today, secondary to pneumonia and influenza B. Pt being moved toC for further management. (2) Pneumonia Code(s): J18.9 - PNEUMONIA, UNSPECIFIED ORGANISM Status: Acute Qualifiers: Laterality: left Lung location: upper lobe of lung Comment: continue IV azithromycin and ceftriaxone (3) Acute worsening of stage 3 chronic kidney disease Code(s): N18.3 - CHRONIC KIDNEY DISEASE, STAGE 3 (MODERATE) Status: Acute Comment: creatinine improved to 2.17 (4) Influenza B Code(s): J10.1 - FLU DUE TO OTH IDENT INFLUENZA VIRUS W OTH RESP MANIFEST Status: Acute Comment: on tamiflu (5) Dyslipidemia Code(s): E78.5 - HYPERLIPIDEMIA, UNSPECIFIED Status: Chronic Comment: on statin (6) HTN (hypertension) Code(s): I10 - ESSENTIAL (PRIMARY) HYPERTENSION Status: Chronic Qualifiers: Comment: controlled (7) Chronic diastolic heart failure Code(s): I50.32 - CHRONIC DIASTOLIC (CONGESTIVE) HEART FAILURE Status: Chronic Comment: stable - Plan * . Review of Systems - Medications/Allergies Allergies/Adverse Reactions: Allergies Allergy/AdvReac Type Severity Reaction Status Date / Time Penicillins Allergy dyspnea Verified 09/13/17 21:11 zolpidem [From Ambien] Allergy "very Verified 09/13/17 21:11 loopy" Medications: Current Medications Acetaminophen (Tylenol) 650 mg PO Q4H PRN PRN Reason: Headache/Fever/Mild Pain (1-3) Acetaminophen (Tylenol) 650 mg IN Q4H PRN PRN Reason: Headache/Fever/Mild Pain (1-3) Apixaban (Eliquis) 2.5 mg PO BID [facility] Last Admin: 08/20/18 10:45 Dose: Not Given Aspirin (Ecotrin) 81 mg PO DAILY [facility] Last Admin: 08/20/18 10:45 Dose: Not Given Atorvastatin Calcium (Lipitor) 20 mg PO DAILY [facility] Last Admin: 08/20/18 10:45 Dose: Not Given Bisacodyl (Dulcolax) 10 mg PO DAILYPRN PRN PRN Reason: Constipation Calcitriol (Rocaltrol) 0.25 mcg PO DAILY [facility] Last Admin: 08/20/18 10:45 Dose: Not Given Carvedilol (Coreg) 25 mg PO BID [facility] Last Admin: 08/20/18 10:46 Dose: Not Given Cyanocobalamin (Vitamin B-12) 500 mcg PO BID [facility] Last Admin: 08/20/18 10:46 Dose: Not Given Cyclosporine (Restasis) 0 ml EA EYE BID [facility] Last Admin: 08/20/18 10:52 Dose: Not Given Famotidine (Pepcid) 20 mg SLOW IVP QAM [facility] Last Admin: 08/20/18 10:51 Dose: 20 mg Famotidine (Pepcid) 20 mg PO QAM [facility] Last Admin: 08/20/18 10:46 Dose: Not Given Fish Oil (Fish Oil) 1,000 mg PO DAILY [facility] Last Admin: 08/20/18 10:46 Dose: Not Given Gabapentin (Neurontin) 600 mg PO BID [facility] Last Admin: 08/20/18 10:46 Dose: Not Given Guaifenesin/Dextromethorphan (Robitussin Dm) 15 ml PO Q4H PRN PRN Reason: Cough Haloperidol Lactate (Haldol) 2 mg IM Q4H PRN PRN Reason: Agitation Last Admin: 08/20/18 14:22 Dose: 2 mg Sodium Chloride (Normal Saline 0.9%) 1,000 mls @ 70 mls/hr IV .[id number] [facility] Last Admin: 08/20/18 04:54 Dose: Not Given Azithromycin 500 mg/ Sodium (Chloride) 250 mls @ 250 mls/hr IVPB Q24HR [facility] Last Admin: 08/19/18 21:58 Dose: 250 mls Ceftriaxone Sodium 2 gm/ (Sodium Chloride) 100 mls @ 200 mls/hr IVPB Q24HR [facility] Last Admin: 08/19/18 21:10 Dose: 100 mls Iron/Minerals/Multivitamins (Theragran M) 1 tab PO DAILY [facility] Last Admin: 08/20/18 10:47 Dose: Not Given Magnesium Oxide (Magnesium Oxide) 500 mg PO DAILY [facility] Last Admin: 08/20/18 10:47 Dose: Not Given Miscellaneous Medication (Pharmacy To Dose) 1 each IVPB PRN PRN PRN Reason: Pharmacy to dose Ondansetron HCl (Zofran Odt) 4 mg PO Q6H PRN PRN Reason: Nausea/Vomiting Ondansetron HCl (Zofran) 4 mg IVP Q6H PRN PRN Reason: Nausea/Vomiting Oseltamivir Phosphate (Tamiflu) 30 mg PO DAILY [facility] Stop: 08/23/18 09:01 Last Admin: 08/20/18 10:47 Dose: Not Given Senna/Docusate Sodium (Senokot S) 2 tab PO BID PRN PRN Reason: Constipation Sodium Chloride (Flush - Normal Saline) 10 ml IVF Q12HR [facility] Last Admin: 08/20/18 10:47 Dose: 10 ml Sodium Chloride (Flush - Normal Saline) 10 ml IVF PRN PRN PRN Reason: Saline Flush Tamsulosin HCl (Flomax) 0.4 mg PO DAILY [facility] Last Admin: 08/20/18 10:47 Dose: Not Given
[2018-08-20] MEDS ORDERED: Midazolam HCl 2 mg/2 ml Vial ONE (17:33)
[2018-08-20] MEDS ORDERED: Morphine 4 MG/ML VIAL ONE (17:34)
[2018-08-20] MEDS ORDERED: Propofol 1,000 MG/100 ML VIAL IV ONE (17:34)
[2018-08-20] MEDS ORDERED: EPINEPHrine 1 MG/10 ML Abboject SYRINGE ONE (17:49)
[2018-08-20] MEDS ORDERED: Ventilator Sedation Protocol 1 EACH FS SCH (18:00)
[2018-08-20] MEDS ORDERED: Fentanyl BOLUS 250 ML IVPB PRN (18:34)
[2018-08-20] MEDS ORDERED: Lorazepam 2 MG/ML VIAL SLOW IVP PRN (18:34)
[2018-08-20] MEDS ORDERED: Morphine 2 MG/ML SYRINGE SLOW IVP PRN (18:34)
[2018-08-20] MEDS ORDERED: DISCONTINUE PREVIOUS NARCOTIC PAIN MEDICATIONS AND BENZODIAZEPINES FS SCH (18:34)
[2018-08-20 18:48] LABS: Actual Bicarbonate (HCO3a) 19.3 mEq/L (22-28); Base Excess (BEa) -7.1 mEq/L (-2.0 to +3.0); CO2 Tension 42.5 mmHg (35.0-45.0); Calcium, Ionized 1.08 mmol/L (1.12-1.30); Carboxyhemoglobin (COHb) 0.8 gm% (0.0-3.0); Hemoglobin (Hb) 9.6 g/dL (14.0-18.0); O2 Tension (PaO2) 65.2 mmHg (> 60.0); Potassium - ABG Lab 4.78 mmol/L (3.70-5.30); pH, Arterial 7.27 (7.35-7.45)
[2018-08-20 18:49] LABS: Puncture Site LBRACH
[2018-08-20 18:50] LABS: ALV-art Gradient 594.675 (0-20)
[2018-08-20] MEDS: Propofol BOLUS 1,000 MG/100 ML VIAL IV PRN ×2 (19:00→21:30)
--- NOTE | 2018-08-20 20:16 | PRG ---
DATE OF SERVICE: 08/20/2018 SUBJECTIVE: The patient was examined, just got intubated for cardiopulmonary failure, not doing very well. OBJECTIVE: VITAL SIGNS: Noted with the following vital signs; blood pressure 96/48, pulse 72, respiratory rate of 20, and O2 saturation on 91%. HEENT: Remarkable for endotracheal tube in place. CARDIOVASCULAR SYSTEM: First and second heart sounds were heard. RESPIRATORY: Revealed ventilator sounds. DIGESTIVE SYSTEM: Revealed a benign abdomen. EXTREMITIES: No peripheral edema. LABORATORY INVESTIGATION: Showed a creatinine of 2.17, BUN of 63, and bicarb of 19. IMPRESSION: 1. [id number] kidney disease hemodynamically mediated. 2. Cardiopulmonary failure. 3. Pneumonitis. 4. Mild metabolic acidosis. PLAN: 1. We will continue hemodynamic support. 2. Monitor the renal function closely. 3. Further management to be dependent on the clinical course. Job ID: [id number]
[2018-08-20] MEDS: fentaNYL Citrate/PF 2,000 MCG in Sodium Chloride 0.9% 60 ML IV SCH (21:00)
[2018-08-20] MEDS: cefTRIAXone\\ROCEPHIN 2 GM in Sodium Chloride 0.9% 100 ML IVPB SCH (21:15)
[2018-08-20] MEDS: Azithromycin 500 MG in Sodium Chloride 0.9% 250 ML 250 ML IVPB SCH (22:55)
[2018-08-21] MEDS: Sodium Chloride 0.9% 1,000 ML IV SCH ×2 (05:30→19:20)
[2018-08-21] MEDS: Propofol 1,000 MG/100 ML VIAL IV PRN ×3 (05:30→22:06)
[2018-08-21 06:07] LABS: Anion Gap 16 mmol/L (10-20); BUN (Urea Nitrogen) 57 mg/dL (8.4-25.7); Calc. Creatinine Clearance 40 mL/min (70-130); Calcium 7.7 mg/dL (7.8-10.44); Carbon Dioxide 18 mmol/L (23-31); Chloride 115 mmol/L (98-107); Estimated GFR-MDRD 33; Glucose 76 mg/dL (83-110); Potassium 4.8 mmol/L (3.5-5.1); Sodium 144 mmol/L (136-145)
[2018-08-21 06:47] LABS: Band 6 % (5-11); Hemoglobin 8.7 g/dL (14.0-18.0); Hypochromia SLIGHT = 6-15 cells (100X) (0-5/hpf); Lymphocytes 4 % (21-51); MDiff Complete? YES; Mean Corpuscular HGB CONC 32.4 g/dL (32.0-36.0); Mean Corpuscular Hemoglobin 31.7 pg (27.0-31.0); Mean Corpuscular Volume 97.9 fL (78.0-98.0); Mean Platelet Volume 7.9 fL (7.4-10.4); Monocytes 2 % (0-10); Neutrophil 88 % (42-75); Platelet Count 104 thou/uL (130-400); Platelet Morphology Comment Appears Decreased; RBC Distribution Width 15.3 % (11.5-14.5); Red Blood Cell (RBC) Count 2.73 mill/uL (4.70-6.10); White Blood Cell (WBC) Count 5.7 thou/uL (4.8-10.8)
--- NOTE | 2018-08-21 07:51 | RAD ---
RADIOGRAPH CHEST: DATE: 08/21/2018. COMPARISON: 08/20/2018. HISTORY: Ventilated patient. FINDINGS: Endotracheal tube and nasogastric tube have been placed and are in proper position. Stable transveno us pacing device and midline sternotomy wires. There has been interval development of nonspecific airspace disease in the right base, left base, and right perihilar region. Airspace disease persists in left upper lobe. Small bilateral pleural effu sions are suspected, worsened. IMPRESSION: Findings suggesting interval development of pulmonary edema. There is persistent airspace disease in the left upper lobe. Superimposed infectious pneumonitis or aspiration, particularly in the left up per lobe, is a possibility. Recommend followup imaging following treatment to document resolution. POS: [facility]
[2018-08-21 08:01] LABS: Actual Bicarbonate (HCO3a) 19.4 mEq/L (22-28); Base Excess (BEa) -5.8 mEq/L (-2.0 to +3.0); CO2 Tension 36.6 mmHg (35.0-45.0); Calcium, Ionized 1.07 mmol/L (1.12-1.30); Carboxyhemoglobin (COHb) 0.9 gm% (0.0-3.0); Hemoglobin (Hb) 8.8 g/dL (14.0-18.0); O2 Tension (PaO2) 75.8 mmHg (> 60.0); Potassium - ABG Lab 4.68 mmol/L (3.70-5.30); pH, Arterial 7.34 (7.35-7.45)
[2018-08-21 08:03] LABS: Puncture Site RRA
[2018-08-21] MEDS: Cyanocobalamin (Vitamin B-12) 1,000 MCG TAB PO SCH ×2 (08:52→20:06)
[2018-08-21] MEDS: Fish Oil 1,000 MG CAP PO SCH (08:54)
[2018-08-21] MEDS: Tamsulosin HCl 0.4 MG CAP PO SCH (08:54)
[2018-08-21] MEDS: Gabapentin 300 MG CAP PO SCH ×2 (08:54→20:08)
[2018-08-21] MEDS: Multivitamin W/ Minerals 1 TAB PO SCH (08:54)
[2018-08-21] MEDS: Apixaban 2.5 MG TAB PO SCH ×2 (08:55→20:06)
[2018-08-21] MEDS: Calcitriol 0.25 MCG CAP PO SCH (08:55)
[2018-08-21] MEDS: Aspirin 81 mg Enteric Coated Tablet PO SCH (08:55)
[2018-08-21] MEDS: Carvedilol 25 MG TAB PO SCH ×2 (08:56→20:06)
[2018-08-21] MEDS: Famotidine/PF 20 mg/2ml Vial SLOW IVP SCH (08:56)
[2018-08-21] MEDS: Magnesium Oxide 250 MG TAB PO SCH (08:56)
[2018-08-21] MEDS: Atorvastatin Calcium 20 MG TAB PO SCH (08:56)
[2018-08-21] MEDS: Oseltamivir 6 MG/ML ORAL SUSP PO SCH (08:56)
[2018-08-21] MEDS: Famotidine 20 MG TAB PO SCH (08:57)
[2018-08-21] MEDS: cycloSPORINE 0.05% Ophthalmic Droperette EA EYE SCH ×2 (08:57→20:08)
--- NOTE | 2018-08-21 14:35 | PDOC.PN ---
- Subjective Encounter Start Date: 08/21/18 Encounter Start Time: 10:40 Pt seen for followup re: acute hypoxic respiratory failure. Intubated, unable to complete ROS. - Objective Resuscitation Status - Order Detail: 08/18/18 23:37 Resuscitation Status Routine Resuscitation Status: FULL: Full Resuscitation MAR Reviewed: Yes Vital Signs & Weight: Vital Signs (12 hours) Temp Pulse Resp BP Pulse Ox 08/21/18 12:00 20 08/21/18 11:00 99.3 F 08/21/18 10:51 70 101/51 L 08/21/18 09:15 22 H 08/21/18 08:01 70 101/52 L 08/21/18 08:00 20 94 L 08/21/18 07:00 98.7 F 08/21/18 06:00 20 08/21/18 04:00 98.5 F 20 Weight Weight 212 lb 8.41 oz Most Recent Monitor Data Heart Rate from ECG 70 NIBP 106/51 NIBP BP-Mean 69 Respiration from ECG 0 SpO2 96 I&O: 08/20/18 08/21/18 08/22/18 06:59 06:59 06:59 Intake Total 2510 1852.5 60 Output Total 1110 975 225 Balance 1400 877.5 -165 Result Diagrams: 08/21/18 05:29 08/21/18 05:29 EKG Reviewed by me: Yes (tele: NSR) Phys Exam - Physical Examination Obese, Intubated HEENT: moist MMs ETT Elliot crackles Cardiovascular: RRR, no rub Gastrointestinal: soft No spontaneous limb movements Deviation from normal: Unable to assess Dx/Plan (1) Acute respiratory failure with hypoxia Code(s): J96.01 - ACUTE RESPIRATORY FAILURE WITH HYPOXIA Status: Acute Comment: Pt intubated, in CCU (2) Pneumonia Code(s): J18.9 - PNEUMONIA, UNSPECIFIED ORGANISM Status: Acute Qualifiers: Laterality: left Lung location: upper lobe of lung Comment: on IV azithromycin, levofloxacin and ceftriaxone (3) Acute worsening of stage 3 chronic kidney disease Code(s): N18.3 - CHRONIC KIDNEY DISEASE, STAGE 3 (MODERATE) Status: Acute Comment: creatinine improved to 1.94 (4) Influenza B Code(s): J10.1 - FLU DUE TO OTH IDENT INFLUENZA VIRUS W OTH RESP MANIFEST Status: Acute Comment: continue Tamiflu (5) Dyslipidemia Code(s): E78.5 - HYPERLIPIDEMIA, UNSPECIFIED Status: Chronic Comment: on statin (6) HTN (hypertension) Code(s): I10 - ESSENTIAL (PRIMARY) HYPERTENSION Status: Chronic Qualifiers: Comment: controlled (7) Chronic diastolic heart failure Code(s): I50.32 - CHRONIC DIASTOLIC (CONGESTIVE) HEART FAILURE Status: Chronic Comment: stable - Plan * . Review of Systems - Medications/Allergies Allergies/Adverse Reactions: Allergies Allergy/AdvReac Type Severity Reaction Status Date / Time Penicillins Allergy dyspnea Verified 09/13/17 21:11 zolpidem [From Ambien] Allergy "very Verified 09/13/17 21:11 loopy" Medications: Current Medications Acetaminophen (Tylenol) 650 mg PO Q4H PRN PRN Reason: Headache/Fever/Mild Pain (1-3) Acetaminophen (Tylenol) 650 mg NM Q4H PRN PRN Reason: Headache/Fever/Mild Pain (1-3) Apixaban (Eliquis) 2.5 mg PO BID [facility] Last Admin: 08/21/18 08:55 Dose: 2.5 mg Aspirin (Ecotrin) 81 mg PO DAILY [facility] Last Admin: 08/21/18 08:55 Dose: 81 mg Atorvastatin Calcium (Lipitor) 20 mg PO DAILY [facility] Last Admin: 08/21/18 08:56 Dose: 20 mg Bisacodyl (Dulcolax) 10 mg PO DAILYPRN PRN PRN Reason: Constipation Calcitriol (Rocaltrol) 0.25 mcg PO DAILY [facility] Last Admin: 08/21/18 08:55 Dose: 0.25 mcg Carvedilol (Coreg) 12.5 mg PO BID [facility] Cyanocobalamin (Vitamin B-12) 500 mcg PO BID [facility] Last Admin: 08/21/18 08:52 Dose: 500 mcg Cyclosporine (Restasis) 0 ml EA EYE BID [facility] Last Admin: 08/21/18 08:57 Dose: 0.4 ml Famotidine (Pepcid) 20 mg SLOW IVP QAM [facility] Last Admin: 08/21/18 08:56 Dose: 20 mg Famotidine (Pepcid) 20 mg PO QAM [facility] Last Admin: 08/21/18 08:57 Dose: Not Given Fish Oil (Fish Oil) 1,000 mg PO DAILY [facility] Last Admin: 08/21/18 08:54 Dose: 1,000 mg Gabapentin (Neurontin) 600 mg PO BID [facility] Last Admin: 08/21/18 08:54 Dose: 600 mg Guaifenesin/Dextromethorphan (Robitussin Dm) 15 ml PO Q4H PRN PRN Reason: Cough Haloperidol Lactate (Haldol) 2 mg IM Q4H PRN PRN Reason: Agitation Last Admin: 08/20/18 14:22 Dose: 2 mg Sodium Chloride (Normal Saline 0.9%) 1,000 mls @ 100 mls/hr IV .Q10H [facility] Last Admin: 08/21/18 05:30 Dose: 1,000 mls Azithromycin 500 mg/ Sodium (Chloride) 250 mls @ 250 mls/hr IVPB Q24HR [facility] Last Admin: 08/20/18 22:55 Dose: 250 mls Ceftriaxone Sodium 2 gm/ (Sodium Chloride) 100 mls @ 200 mls/hr IVPB Q24HR [facility] Last Admin: 08/20/18 21:15 Dose: 100 mls Levofloxacin 750 mg/ Device 150 mls @ 100 mls/hr IVPB Q24HR [facility] Last Admin: 08/20/18 21:12 Dose: 150 mls Fentanyl Citrate 2,000 mcg/ (Sodium Chloride) 100 mls @ 0 mls/hr IV INF [facility]; Protocol Stop: 09/19/18 18:34 Last Admin: 08/20/18 21:00 Dose: 100 mls Fentanyl Citrate (Fentanyl Bolus) 250 mls @ 0 mls/hr IVPB PRN PRN PRN Reason: Breakthrough pain/agitation Stop: 09/19/18 18:34 Iron/Minerals/Multivitamins (Theragran M) 1 tab PO DAILY [facility] Last Admin: 08/21/18 08:54 Dose: 1 tab Lorazepam (Ativan) 2 mg SLOW IVP Q1H PRN PRN Reason: Breakthrough agitation Stop: 09/19/18 18:34 Magnesium Oxide (Magnesium Oxide) 500 mg PO DAILY [facility] Last Admin: 08/21/18 08:56 Dose: 500 mg Methylprednisolone Sodium Succinate (Solu-Medrol) 40 mg IVP Q6HR [facility] Last Admin: 08/21/18 11:14 Dose: 40 mg Miscellaneous Medication (Pharmacy To Dose) 1 each IVPB PRN PRN PRN Reason: Pharmacy to dose Miscellaneous Medication (Ventilator Sedation Protocol) 1 each FS ONE [facility] Stop: 09/19/18 18:01 Morphine Sulfate (Morphine) 2 mg SLOW IVP Q1H PRN PRN Reason: BREAKTHROUGH PAIN/Agitation Stop: 09/19/18 18:34 Discontinue Previous Narcotic Pain Medications And Benzodiazepines 1 each FS .ONE [facility] Stop: 09/19/18 18:34 Ondansetron HCl (Zofran Odt) 4 mg PO Q6H PRN PRN Reason: Nausea/Vomiting Ondansetron HCl (Zofran) 4 mg IVP Q6H PRN PRN Reason: Nausea/Vomiting Oseltamivir Phosphate (Tamiflu) 30 mg PO DAILY [facility] Stop: 08/23/18 09:01 Last Admin: 08/21/18 08:56 Dose: 30 mg Propofol (Diprivan) 1,000 mg IV INF PRN; Protocol PRN Reason: TO ACHIEVE GOAL RASS Stop: 09/19/18 18:34 Last Admin: 08/21/18 13:53 Dose: 1,000 mg Propofol (Diprivan Bolus) 20 mg IV Q5MIN PRN PRN Reason: BREAKTHROUGH AGITATION Stop: 09/19/18 18:34 Last Admin: 08/20/18 21:30 Dose: 20 mg Senna/Docusate Sodium (Senokot S) 2 tab PO BID PRN PRN Reason: Constipation Sodium Chloride (Flush - Normal Saline) 10 ml IVF Q12HR [facility] Last Admin: 08/21/18 08:56 Dose: 10 ml Sodium Chloride (Flush - Normal Saline) 10 ml IVF PRN PRN PRN Reason: Saline Flush Tamsulosin HCl (Flomax) 0.4 mg PO DAILY [facility] Last Admin: 08/21/18 08:54 Dose: 0.4 mg
[2018-08-21] MEDS: Propofol BOLUS 1,000 MG/100 ML VIAL IV PRN ×3 (19:00→20:30)
[2018-08-21] MEDS: cefTRIAXone\\ROCEPHIN 2 GM in Sodium Chloride 0.9% 100 ML IVPB SCH (20:02)
[2018-08-21] MEDS: Azithromycin 500 MG in Sodium Chloride 0.9% 250 ML 250 ML IVPB SCH (22:00)
--- NOTE | 2018-08-22 02:08 | PRG ---
DATE OF SERVICE: SUBJECTIVE: The patient is seen and examined, noted with the following vital signs, was still on life support. OBJECTIVE: VITAL SIGNS: Afebrile. Temperature 98.3, pulse 68, respiratory rate 20, blood pressure 126/60, and O2 saturation 98%. HEENT: Remarkable for endotracheal tube still in place. CARDIOVASCULAR SYSTEM: First and second heart sounds were heard. RESPIRATORY: Revealed ventilator sounds. DIGESTIVE SYSTEM: Revealed distended abdomen. EXTREMITIES: No peripheral edema. SKIN: No new gross rash. LYMPHATICS: No peripheral lymphadenopathy. LABORATORY INVESTIGATION: Hemoglobin 8.7. Chemistry showed a creatinine down to 1.94, BUN of 57, and and bicarb of 18. IMPRESSION: 1. Acute on chronic kidney disease, which seems to be improved. 2. Metabolic acidosis. 3. Cardiopulmonary failure. PLAN: 1. Continue current renal supportive measures while avoiding potentially nephrotoxic agents. 2. Renally dose all medications. 3. Further management will be dependent on the clinical course. Job ID: [id number]
[2018-08-22] MEDS: fentaNYL Citrate/PF 2,000 MCG in Sodium Chloride 0.9% 60 ML IV SCH (02:22)
[2018-08-22 05:22] LABS: Anion Gap 17 mmol/L (10-20); BUN (Urea Nitrogen) 51 mg/dL (8.4-25.7); Calc. Creatinine Clearance 46 mL/min (70-130); Calcium 7.5 mg/dL (7.8-10.44); Carbon Dioxide 16 mmol/L (23-31); Chloride 115 mmol/L (98-107); Estimated GFR-MDRD 39; Glucose 233 mg/dL (83-110); Potassium 4.7 mmol/L (3.5-5.1); Sodium 143 mmol/L (136-145)
[2018-08-22 05:29] LABS: Band 20 % (5-11); Hemoglobin 8.7 g/dL (14.0-18.0); Lymphocytes 18 % (21-51); MDiff Complete? YES; Mean Corpuscular HGB CONC 32.8 g/dL (32.0-36.0); Mean Corpuscular Hemoglobin 32.1 pg (27.0-31.0); Mean Corpuscular Volume 97.9 fL (78.0-98.0); Mean Platelet Volume 7.9 fL (7.4-10.4); Monocytes 7 % (0-10); Neutrophil 55 % (42-75); Platelet Count 102 thou/uL (130-400); Platelet Morphology Comment Appears Decreased; RBC Distribution Width 14.9 % (11.5-14.5); RBC Morphology Normal; Red Blood Cell (RBC) Count 2.71 mill/uL (4.70-6.10); White Blood Cell (WBC) Count 2.5 thou/uL (4.8-10.8)
[2018-08-22] MEDS: Sodium Chloride 0.9% 1,000 ML IV SCH ×2 (05:56→15:28)
[2018-08-22] MEDS: Propofol 1,000 MG/100 ML VIAL IV PRN ×2 (06:06→19:27)
[2018-08-22 08:10] LABS: Actual Bicarbonate (HCO3a) 20.3 mEq/L (22-28); Base Excess (BEa) -4.6 mEq/L (-2.0 to +3.0); CO2 Tension 36.2 mmHg (35.0-45.0); Calcium, Ionized 1.03 mmol/L (1.12-1.30); Hemoglobin (Hb) 8.9 g/dL (14.0-18.0); O2 Tension (PaO2) 68.9 mmHg (> 60.0); Potassium - ABG Lab 4.55 mmol/L (3.70-5.30); pH, Arterial 7.37 (7.35-7.45)
[2018-08-22 08:12] LABS: Puncture Site RRA
--- NOTE | 2018-08-22 08:13 | RAD ---
PORTABLE SEMIUPRIGHT FRONTAL CHEST RADIOGRAPH: DATE: 08/22/2018. COMPARISON: 08/21/2018. HISTORY: Ventilated patient. FINDINGS: Stable endotracheal tube and nasogastric tube. Nonspecific extensive airspace disease noted througho ut the left lung, grossly unchanged. Airspace disease again seen in the right base as well. Stable midline sternotomy wires and transvenous pacing device. Small bilateral pleural effusions suspected. IMPRESSION: No significant interval change. Findings may signify pulmonary edema and/or infectious pneumonitis. POS: [facility]
--- NOTE | 2018-08-22 09:18 | PRG ---
DATE OF SERVICE: 08/22/2018 SUBJECTIVE: Jake Jason remains intubated. The vent still agitated. He still got bilateral infiltrates, though somewhat improved. OBJECTIVE: VITAL SIGNS: Blood pressure is 153/79, pulse 72, respirations 18, and temperature 99. CHEST: Bilateral crackles. CARDIAC: Sinus tach. ABDOMEN: Soft. NEUROLOGIC: He is encephalopathic. Moves all 4 extremities. LABORATORY DATA: All cultures negative. His pO2 is 68, pCO2 of 36, 10 PEEP. White count is 2.5, H and H 8 and 26, platelet count 102. Creatinine 1.6. IMPRESSION: Bilateral bronchopneumonia, respiratory failure, azotemia, influenza B, renal failure, encephalopathy. PLAN: He is still not weanable at this stage. Continue nutrition, PT, antibiotics, supportive care, steroids. One-half hour critical time. Job ID: [id number]
[2018-08-22] MEDS: Gabapentin 300 MG CAP PO SCH ×2 (09:26→21:43)
[2018-08-22] MEDS: Cyanocobalamin (Vitamin B-12) 1,000 MCG TAB PO SCH ×3 (09:26→21:50)
[2018-08-22] MEDS: Calcitriol 0.25 MCG CAP PO SCH (09:27)
[2018-08-22] MEDS: Multivitamin W/ Minerals 1 TAB PO SCH (09:27)
[2018-08-22] MEDS: Tamsulosin HCl 0.4 MG CAP PO SCH (09:27)
[2018-08-22] MEDS: Apixaban 2.5 MG TAB PO SCH ×2 (09:27→21:39)
[2018-08-22] MEDS: Magnesium Oxide 250 MG TAB PO SCH (09:27)
[2018-08-22] MEDS: Fish Oil 1,000 MG CAP PO SCH (09:27)
[2018-08-22] MEDS: Cefepime 1 GM in Sodium Chloride 0.9% 100 ML IVPB SCH ×2 (09:27→21:40)
[2018-08-22] MEDS: Famotidine/PF 20 mg/2ml Vial SLOW IVP SCH (09:28)
[2018-08-22] MEDS: Aspirin 81 mg Enteric Coated Tablet PO SCH (09:28)
[2018-08-22] MEDS: Atorvastatin Calcium 20 MG TAB PO SCH (09:28)
[2018-08-22] MEDS: cycloSPORINE 0.05% Ophthalmic Droperette EA EYE SCH ×2 (09:35→21:46)
[2018-08-22] MEDS: Famotidine 20 MG TAB PO SCH (09:35)
[2018-08-22] MEDS: Carvedilol 25 MG TAB PO SCH ×2 (09:36→21:39)
[2018-08-22] MEDS: Oseltamivir 6 MG/ML ORAL SUSP PO SCH (11:04)
--- NOTE | 2018-08-22 13:51 | PDOC.PN ---
- Subjective Encounter Start Date: 08/22/18 Encounter Start Time: 10:40 -: non-verbal Pt seen for followup re: acute hypoxic respiratory failure. Intubated, could not complete ROS. - Objective Resuscitation Status - Order Detail: 08/18/18 23:37 Resuscitation Status Routine Resuscitation Status: FULL: Full Resuscitation MAR Reviewed: Yes Vital Signs & Weight: Vital Signs (12 hours) Temp Pulse Resp BP Pulse Ox 08/22/18 12:00 98.2 F 16 08/22/18 10:00 18 08/22/18 08:03 72 153/79 H 08/22/18 08:00 22 H 96 08/22/18 07:00 97.9 F 08/22/18 06:00 20 08/22/18 04:00 97.6 F 20 08/22/18 02:10 71 08/22/18 02:00 20 Weight Admit Weight 205 lb 8 oz Weight 214 lb 11.684 oz Most Recent Monitor Data Heart Rate from ECG 72 NIBP 107/57 NIBP BP-Mean 73 Respiration from ECG 16 SpO2 92 I&O: 08/21/18 08/22/18 08/23/18 06:59 06:59 06:59 Intake Total 1852.5 3600.8 100 Output Total 975 1810 435 Balance 877.5 1790.8 -335 Result Diagrams: 08/22/18 04:24 08/22/18 04:24 EKG Reviewed by me: Yes (Tele: V-paced) Phys Exam - Physical Examination Intubated, obese HEENT: moist MMs ETT Elliot crackles Cardiovascular: RRR Gastrointestinal: soft No spontaneous limb movements Deviation from normal: Unable to assess Dx/Plan (1) Acute respiratory failure with hypoxia Code(s): J96.01 - ACUTE RESPIRATORY FAILURE WITH HYPOXIA Status: Acute Comment: Secondary to pneumonia and influenza B infection (2) Pneumonia Code(s): J18.9 - PNEUMONIA, UNSPECIFIED ORGANISM Status: Acute Qualifiers: Laterality: left Lung location: upper lobe of lung Comment: continue azithromycin, levofloxacin and cefepime (3) Acute worsening of stage 3 chronic kidney disease Code(s): N18.3 - CHRONIC KIDNEY DISEASE, STAGE 3 (MODERATE) Status: Acute Comment: creatinine improved to 1.69 today (4) Influenza B Code(s): J10.1 - FLU DUE TO OTH IDENT INFLUENZA VIRUS W OTH RESP MANIFEST Status: Acute Comment: on Tamiflu (5) Dyslipidemia Code(s): E78.5 - HYPERLIPIDEMIA, UNSPECIFIED Status: Chronic Comment: on statin (6) HTN (hypertension) Code(s): I10 - ESSENTIAL (PRIMARY) HYPERTENSION Status: Chronic Qualifiers: Comment: controlled (7) Chronic diastolic heart failure Code(s): I50.32 - CHRONIC DIASTOLIC (CONGESTIVE) HEART FAILURE Status: Chronic Comment: stable - Plan * . Review of Systems - Medications/Allergies Allergies/Adverse Reactions: Allergies Allergy/AdvReac Type Severity Reaction Status Date / Time Penicillins Allergy dyspnea Verified 09/13/17 21:11 zolpidem [From Ambien] Allergy "very Verified 09/13/17 21:11 loopy" Medications: Current Medications Acetaminophen (Tylenol) 650 mg PO Q4H PRN PRN Reason: Headache/Fever/Mild Pain (1-3) Acetaminophen (Tylenol) 650 mg [place] Q4H PRN PRN Reason: Headache/Fever/Mild Pain (1-3) Apixaban (Eliquis) 2.5 mg PO BID [facility] Last Admin: 08/22/18 09:27 Dose: 2.5 mg Aspirin (Ecotrin) 81 mg PO DAILY [facility] Last Admin: 08/22/18 09:28 Dose: 81 mg Atorvastatin Calcium (Lipitor) 20 mg PO DAILY [facility] Last Admin: 08/22/18 09:28 Dose: 20 mg Bisacodyl (Dulcolax) 10 mg PO DAILYPRN PRN PRN Reason: Constipation Calcitriol (Rocaltrol) 0.25 mcg PO DAILY [facility] Last Admin: 08/22/18 09:27 Dose: 0.25 mcg Carvedilol (Coreg) 12.5 mg PO BID [facility] Last Admin: 08/22/18 09:36 Dose: 12.5 mg Chlordiazepoxide HCl (Librium) 10 mg PO TID [facility] Last Admin: 08/22/18 09:26 Dose: 10 mg Cyanocobalamin (Vitamin B-12) 500 mcg PO BID [facility] Last Admin: 08/22/18 09:26 Dose: 500 mcg Cyclosporine (Restasis) 0 ml EA EYE BID [facility] Last Admin: 08/22/18 09:35 Dose: 0.4 ml Famotidine (Pepcid) 20 mg SLOW IVP QAM [facility] Last Admin: 08/22/18 09:28 Dose: 20 mg Famotidine (Pepcid) 20 mg PO QAM [facility] Last Admin: 08/22/18 09:35 Dose: Not Given Fish Oil (Fish Oil) 1,000 mg PO DAILY [facility] Last Admin: 08/22/18 09:27 Dose: 1,000 mg Gabapentin (Neurontin) 600 mg PO BID [facility] Last Admin: 08/22/18 09:26 Dose: 600 mg Guaifenesin/Dextromethorphan (Robitussin Dm) 15 ml PO Q4H PRN PRN Reason: Cough Sodium Chloride (Normal Saline 0.9%) 1,000 mls @ 100 mls/hr IV .Q10H [facility] Last Admin: 08/22/18 05:56 Dose: 1,000 mls Levofloxacin 750 mg/ Device 150 mls @ 100 mls/hr IVPB Q24HR [facility] Last Admin: 08/21/18 17:03 Dose: 150 mls Fentanyl Citrate 2,000 mcg/ (Sodium Chloride) 100 mls @ 0 mls/hr IV INF [facility]; Protocol Stop: 09/19/18 18:34 Last Admin: 08/22/18 02:22 Dose: 100 mls Fentanyl Citrate (Fentanyl Bolus) 250 mls @ 0 mls/hr IVPB PRN PRN PRN Reason: Breakthrough pain/agitation Stop: 09/19/18 18:34 Cefepime HCl 1 gm/ Sodium (Chloride) 100 mls @ 200 mls/hr IVPB Q12HR [facility] Last Admin: 08/22/18 09:27 Dose: 100 mls Iron/Minerals/Multivitamins (Theragran M) 1 tab PO DAILY [facility] Last Admin: 08/22/18 09:27 Dose: 1 tab Lorazepam (Ativan) 2 mg SLOW IVP Q1H PRN PRN Reason: Breakthrough agitation Stop: 09/19/18 18:34 Magnesium Oxide (Magnesium Oxide) 500 mg PO DAILY [facility] Last Admin: 08/22/18 09:27 Dose: 500 mg Methylprednisolone Sodium Succinate (Solu-Medrol) 40 mg IVP BID [facility] Last Admin: 08/22/18 09:28 Dose: 40 mg Miscellaneous Medication (Pharmacy To Dose) 1 each IVPB PRN PRN PRN Reason: Pharmacy to dose Miscellaneous Medication (Ventilator Sedation Protocol) 1 each FS ONE [facility] Stop: 09/19/18 18:01 Morphine Sulfate (Morphine) 2 mg SLOW IVP Q1H PRN PRN Reason: BREAKTHROUGH PAIN/Agitation Stop: 09/19/18 18:34 Discontinue Previous Narcotic Pain Medications And Benzodiazepines 1 each FS .ONE [facility] Stop: 09/19/18 18:34 Ondansetron HCl (Zofran Odt) 4 mg PO Q6H PRN PRN Reason: Nausea/Vomiting Ondansetron HCl (Zofran) 4 mg IVP Q6H PRN PRN Reason: Nausea/Vomiting Oseltamivir Phosphate (Tamiflu) 30 mg PO DAILY [facility] Stop: 08/23/18 09:01 Last Admin: 08/22/18 11:04 Dose: 30 mg Propofol (Diprivan) 1,000 mg IV INF PRN; Protocol PRN Reason: TO ACHIEVE GOAL RASS Stop: 09/19/18 18:34 Last Admin: 08/22/18 06:06 Dose: 1,000 mg Propofol (Diprivan Bolus) 20 mg IV Q5MIN PRN PRN Reason: BREAKTHROUGH AGITATION Stop: 09/19/18 18:34 Last Admin: 08/21/18 20:30 Dose: 20 mg Senna/Docusate Sodium (Senokot S) 2 tab PO BID PRN PRN Reason: Constipation Sodium Chloride (Flush - Normal Saline) 10 ml IVF Q12HR [facility] Last Admin: 08/22/18 09:35 Dose: 10 ml Sodium Chloride (Flush - Normal Saline) 10 ml IVF PRN PRN PRN Reason: Saline Flush Tamsulosin HCl (Flomax) 0.4 mg PO DAILY [facility] Last Admin: 08/22/18 09:27 Dose: 0.4 mg
[2018-08-22] MEDS ORDERED: Sodium Bicarbonate 150 MEQ in Dextrose 5% in Water 1,000 ML IV SCH (22:15)
--- NOTE | 2018-08-22 22:46 | PRG ---
DATE OF SERVICE: 08/22/2018 SUBJECTIVE: The patient is seen and examined, still on life support, noted with the following vital signs. OBJECTIVE: VITAL SIGNS: Blood pressure 105/56, pulse 72, respiratory rate of 19, and O2 saturation of 94%. HEENT: Remarkable for endotracheal tube in place. CARDIOVASCULAR SYSTEM: First and second heart sounds were heard. RESPIRATORY SYSTEM: Revealed ventilator sounds. DIGESTIVE SYSTEM: Revealed a benign abdomen. EXTREMITIES: No peripheral edema. LABORATORY INVESTIGATION: Showed a creatinine down to 1.69, BUN of 61, bicarb of 16. IMPRESSION: 1. Cardiopulmonary failure, on life support. 2. Acute on chronic kidney disease, improving. 3. Metabolic acidosis, worsening. PLAN: 1. Renal supportive measures. 2. Consider instituting a bicarb infusion. 3. Further management will be dependent on the clinical course. The condition of the patient is guarded. Job ID: [id number]
[2018-08-23] MEDS: fentaNYL Citrate/PF 2,000 MCG in Sodium Chloride 0.9% 60 ML IV SCH (01:17)
--- NOTE | 2018-08-23 01:32 | PRG ---
DATE OF SERVICE: 08/21/2018 SUBJECTIVE: An 83-year-old gentleman, who is intubated for progressive respiratory failure. X-ray shows bilateral pulmonary infiltrates. So far, bronchial washings are negative. OBJECTIVE: VITAL SIGNS: Blood pressure is low at 101/52, pulse 70, respirations 18, saturations are 98%. CHEST: Decreased breath sounds. Bilateral rhonchi. CARDIAC: Normal S1 and S2. No gallops. ABDOMEN: No masses. LABORATORY DATA: White count 5000, hemoglobin and hematocrit 8 and 26, platelet count 104. PO2 was 75, pCO2 of 0.32 BUN and creatinine of 57 and 1.94, probably prerenal. IMPRESSION: 1. Respiratory failure. 2. Bilateral bronchopneumonia. 3. Azotemia, prerenal. PLAN: Continue nutrition, PT, broad-spectrum antibiotics. Not weanable at this stage. One-half hour of critical time. Job ID: [id number]
[2018-08-23] MEDS: Propofol 1,000 MG/100 ML VIAL IV PRN ×4 (03:59→23:30)
[2018-08-23 05:11] LABS: Anion Gap 14 mmol/L (10-20); BUN (Urea Nitrogen) 60 mg/dL (8.4-25.7); Calc. Creatinine Clearance 42 mL/min (70-130); Calcium 7.4 mg/dL (7.8-10.44); Carbon Dioxide 23 mmol/L (23-31); Chloride 114 mmol/L (98-107); Estimated GFR-MDRD 35; Glucose 287 mg/dL (83-110); Potassium 5.5 mmol/L (3.5-5.1); Sodium 145 mmol/L (136-145)
[2018-08-23 05:12] LABS: Band 4 % (5-11); Hemoglobin 8.7 g/dL (14.0-18.0); Hypochromia SLIGHT = 6-15 cells (100X) (0-5/hpf); Lymphocytes 5 % (21-51); MDiff Complete? YES; Macrocytosis SLIGHT = 6-15 cells (100X) (0-5/hpf); Mean Corpuscular HGB CONC 32.1 g/dL (32.0-36.0); Mean Corpuscular Hemoglobin 31.8 pg (27.0-31.0); Mean Corpuscular Volume 99.2 fL (78.0-98.0); Mean Platelet Volume 7.6 fL (7.4-10.4); Monocytes 1 % (0-10); Neutrophil 90 % (42-75); Platelet Count 99 thou/uL (130-400); Platelet Morphology Comment Appears Adequate; RBC Distribution Width 14.9 % (11.5-14.5); Red Blood Cell (RBC) Count 2.73 mill/uL (4.70-6.10); White Blood Cell (WBC) Count 4.4 thou/uL (4.8-10.8)
--- NOTE | 2018-08-23 07:13 | OP ---
DATE OF PROCEDURE: 08/20/2018 Called to see the patient. All day he was having respiratory distress ongoing. In spite of being on noninvasive ventilation, his sats have been decreasing. They were in the 80s to low 90s on FiO2 of 65%. Upon arrival, he was clearly tachypneic, tachycardic. Sats were low. Though he was appropriate, the patient was told he is going to be intubated because of progressive respiratory failure. A bite block was placed in using a 7.5 endotracheal tube over the bronchoscope. The area of the posterior pharynx was visualized. The vocal cords appeared to be normal. There was copious amounts of pale yellow secretions. He was given 2 of Versed and 4 of morphine. The bronchoscope was then passed along with the endotracheal tube, placed above the poncho. This was secured. There was copious amounts of dark yellow secretions coming out of the right lung. Shortly after the procedure, the patient had significant pulmonary hemorrhage from the endotracheal tube entering the distal trachea. I instilled 2 mL of 1:10,000 epinephrine to control the bleeding. Both lungs are reinspected again after the tube was secured. Right lung initially upper middle lobe was unremarkable. Left lung once again left upper left lobe was unremarkable. No endobronchial obstruction or pus was seen. The area of the bleeding subsided after instillation of epinephrine. Washings sent for Gram stain and C and S. The patient was connected to respirator. Continue broad-spectrum antibiotics as this will . This is a one-half hour of critical time, exclusive of the intubation, exclusive of the bronchoscopy lavage. Job ID: [id number]
[2018-08-23 07:59] LABS: Actual Bicarbonate (HCO3a) 21.9 mEq/L (22-28); Base Excess (BEa) -3.9 mEq/L (-2.0 to +3.0); CO2 Tension 42.6 mmHg (35.0-45.0); Calcium, Ionized 1.02 mmol/L (1.12-1.30); Carboxyhemoglobin (COHb) 0.9 gm% (0.0-3.0); Hemoglobin (Hb) 9.2 g/dL (14.0-18.0); O2 Tension (PaO2) 65.1 mmHg (> 60.0); Potassium - ABG Lab 5.23 mmol/L (3.70-5.30); pH, Arterial 7.33 (7.35-7.45)
[2018-08-23 08:00] LABS: Puncture Site LR
[2018-08-23] MEDS ORDERED: Dextrose 5% in Water 1,000 ML IV PRN (08:10)
[2018-08-23] MEDS ORDERED: Dextrose 50% Abboject 50 ML SYRINGE SLOW IVP PRN (08:10)
[2018-08-23] MEDS: Cyanocobalamin (Vitamin B-12) 1,000 MCG TAB PO SCH ×2 (08:16→21:05)
[2018-08-23] MEDS: Magnesium Oxide 250 MG TAB PO SCH (08:16)
[2018-08-23] MEDS: Apixaban 2.5 MG TAB PO SCH ×2 (08:16→21:00)
[2018-08-23] MEDS: Calcitriol 0.25 MCG CAP PO SCH (08:16)
[2018-08-23] MEDS: Fish Oil 1,000 MG CAP PO SCH (08:16)
[2018-08-23] MEDS: Gabapentin 300 MG CAP PO SCH ×2 (08:16→21:05)
[2018-08-23] MEDS: Famotidine 20 MG TAB PO SCH (08:16)
[2018-08-23] MEDS: Atorvastatin Calcium 20 MG TAB PO SCH (08:17)
[2018-08-23] MEDS: Carvedilol 25 MG TAB PO SCH ×2 (08:17→21:00)
[2018-08-23] MEDS: Oseltamivir 75 MG CAP PO SCH (08:17)
[2018-08-23] MEDS: Cefepime 1 GM in Sodium Chloride 0.9% 100 ML IVPB SCH ×2 (08:18→21:00)
[2018-08-23] MEDS: Aspirin 81 mg Enteric Coated Tablet PO SCH (08:18)
[2018-08-23] MEDS: Famotidine/PF 20 mg/2ml Vial SLOW IVP SCH (08:18)
[2018-08-23] MEDS: Multivitamin W/ Minerals 1 TAB PO SCH (08:18)
--- NOTE | 2018-08-23 08:27 | PRG ---
DATE OF SERVICE: 08/23/2018 TIME SPENT: 35 minutes of critical care time. SUBJECTIVE: This patient remains intubated on mechanical ventilation. There have been no acute changes overnight. OBJECTIVE: VITAL SIGNS: On exam, his temperature is 97.8, pulse is 70, and blood pressure 146/70. 24 hours intake 4057, output 1250. Weight 114 pounds. Admission weight 205 pounds. HEENT: Unremarkable. NECK: No JVD. LUNGS: Coarse breath sounds. CARDIAC: S1 and S2, regular. ABDOMEN: Obese, soft, and nontender. EXTREMITIES: Trace edema. LABORATORY DATA: Sodium 145, potassium 5.5, chloride 114, CO2 of 23, BUN 60, creatinine 1.8, and glucose 287. PH of 7.33, pCO2 of 42, pO2 of 65 that is on SIMV rate of 16, tidal volume 500, PEEP 10, and FiO2 of 60%. White blood cell count 4.4, hematocrit 27.1, and platelet count 99. IMAGING DATA: Chest x-ray shows bilateral infiltrates, left greater than right. Diaphragms are exterior. ET tube is in proper position. He has a pacemaker in place. He has an NG tube going down to the stomach. ASSESSMENT: 1. Acute respiratory failure, requiring mechanical ventilation. 2. Influenza type B. 3. Hyperkalemia. 4. Azotemia. 5. Profoundly fluid overloaded. PLAN: 1. At this point, I do not think he is weanable, although I am trying to bring down his FiO2 some. 2. Because of his degree of fluid overload, I would decrease the rate on his bicarbonate drip from 100 to 50 mL/h. 3. Trend his potassium levels. If potassium level continues to increase, may need to consider giving him some Kayexalate. 4. Continue antibiotics and Tamiflu. Job ID: [id number]
--- NOTE | 2018-08-23 08:43 | RAD ---
PORTABLE SEMIUPRIGHT FRONTAL CHEST RADIOGRAPH: DATE: 08/23/2018. COMPARISON: 08/22/2018. HISTORY: Ventilated patient. FINDINGS: Endotracheal tube and nasogastric tube in proper position. Midline sternotomy wires and dual-lead tr ansvenous pacing device present. No pneumothorax is seen. There is airspace disease in the left upp er lobe. There is bilateral perihilar density consistent with pulmonary vascular congestion and airs pace disease. There is dense bibasilar pleural and parenchymal opacity, left greater than right. IMPRESSION: Lines and tubes as above. Extensive pleural and parenchymal opacity bilaterally suggests pulmonary e temo. Infectious pneumonitis or aspiration cannot be excluded. Recommend followup imaging following treatment to document resolution. POS: OFF
[2018-08-23] MEDS: Sodium Bicarbonate 150 MEQ in Dextrose 5% in Water 1,000 ML IV SCH (08:55)
[2018-08-23] MEDS: cycloSPORINE 0.05% Ophthalmic Droperette EA EYE SCH ×2 (08:56→21:29)
[2018-08-23] MEDS: Tamsulosin HCl 0.4 MG CAP PO SCH (09:06)
--- NOTE | 2018-08-23 11:09 | PQF ---
CLINICAL DOCUMENTATION IMPROVEMENT CLARIFICATION FORM: ICD-10 Updated PLEASE DO AN ADDENDUM TO THE PROGRESS NOTE WITH ANY DOCUMENTATION UPDATES OR ADDITIONS AND CARRY THROUGH TO DC SUMMARY. THANK YOU. DATE: 08/23/2018 ATTN: Dr. Castaneda Please exercise your independent, professional judgment in responding to the clarification form. Clinical indicators are provided on the bottom of this form for your review Please check appropriate box(s) to clarify if the following diagnosis has been ruled in or ruled out: Sepsis secondary to influenza . [ ] Ruled in diagnosis [ ] Continue to treat [ ] Resolved [ ] Ruled out diagnosis [ ] Cannot rule out diagnosis [ ] Other diagnosis [ ] Unable to determine In addition, please specify: Present on Admission (POA): [ ] Yes [ ] No [ ] Unable to determine For continuity of documentation, please document condition throughout progress notes and discharge summary. Thank You. CLINICAL INDICATORS - SIGNS / SYMPTOMS / LABS H&P 08/18: ABG: pH 7.40 pCO2 33.0 pO2 is 69.2 Acute hypoxemic respiratory failure likely due to pneumonia and flu. Sepsis secondary to influenza. Left lung pneumonia likely community-acquired pneumonia Acute on chronic kidney disease. PN 08/22: Acute respiratory failure with hypoxia. Secondary to pneumonia and influenza B infection. RISKS: H&P: 83 yr with multiple comorbidities being admitted for Acute hypoxic respiratory failure likely due to pneumonia and flu. Hx of Atrial fib; HTN. CAD. TREATMENT: Order 08/20: Resp: Vent continuous Order 08/19- 08/22: IV Rocephin Order 08/19- 08/22: IV Zithromax Order 08/22: Cefepime 1 gm IV Q 12 hr Thank you, Cierra (This form is maintained as a part of the permanent medical record) 2014 [employer]. All Rights Reserved Cierra Ramirez RN, BSN [email or web address] Office: [phone] [facility]
[2018-08-23] MEDS: Insulin Regular 300 UNITS/3 ML VIAL SC PRN ×3 (11:31→21:23)
[2018-08-23] MEDS ORDERED: Oseltamivir 6 MG/ML ORAL SUSP PO SCH (12:45)
[2018-08-23] MEDS: Oseltamivir 6 MG/ML ORAL SUSP PO SCH (13:01)
--- NOTE | 2018-08-23 16:16 | PDOC.PN ---
- Subjective Encounter Start Date: 08/23/18 Encounter Start Time: 10:20 Pt seen for followup re: acute hypoxic respiratory failure. Intubated, unable to obtain ROS. - Objective Resuscitation Status - Order Detail: 08/18/18 23:37 Resuscitation Status Routine Resuscitation Status: FULL: Full Resuscitation MAR Reviewed: Yes Vital Signs & Weight: Vital Signs (12 hours) Temp Pulse Resp BP Pulse Ox 08/23/18 16:00 98.5 F 16 08/23/18 15:27 70 147/68 H 08/23/18 14:00 16 08/23/18 13:38 70 152/70 H 08/23/18 12:00 21 H 08/23/18 10:14 70 133/71 08/23/18 10:00 16 08/23/18 08:42 70 143/71 H 08/23/18 08:00 16 96 08/23/18 07:00 97.8 F 08/23/18 06:00 16 Weight Admit Weight 205 lb 8 oz Weight 214 lb 15.211 oz Most Recent Monitor Data Heart Rate from ECG 70 NIBP 149/67 NIBP BP-Mean 94 Respiration from ECG 16 SpO2 90 I&O: 08/22/18 08/23/18 08/24/18 06:59 06:59 06:59 Intake Total 3600.8 4057.0 487 Output Total 1810 1250 610 Balance 1790.8 2807.0 -123 Result Diagrams: 08/23/18 04:34 08/23/18 04:34 Additional Labs: Accuchecks 08/23/18 08/23/18 16:06 11:30 POC Glucose 355 H 341 H EKG Reviewed by me: Yes (Tele: NSR) Phys Exam - Physical Examination Intubated endotracheal tube Elliot crackles Cardiovascular: RRR Gastrointestinal: soft Not moving extremities Deviation from normal: Unable to assess Dx/Plan (1) Acute respiratory failure with hypoxia Code(s): J96.01 - ACUTE RESPIRATORY FAILURE WITH HYPOXIA Status: Acute Comment: Intubated, being managed in CCU (2) Pneumonia Code(s): J18.9 - PNEUMONIA, UNSPECIFIED ORGANISM Status: Acute Qualifiers: Laterality: left Lung location: upper lobe of lung Comment: on azithromycin, levofloxacin and cefepime (3) Acute worsening of stage 3 chronic kidney disease Code(s): N18.3 - CHRONIC KIDNEY DISEASE, STAGE 3 (MODERATE) Status: Acute Comment: creatinine 1.86 today (4) Influenza B Code(s): J10.1 - FLU DUE TO OTH IDENT INFLUENZA VIRUS W OTH RESP MANIFEST Status: Acute Comment: continue Tamiflu (5) Dyslipidemia Code(s): E78.5 - HYPERLIPIDEMIA, UNSPECIFIED Status: Chronic Comment: on statin (6) HTN (hypertension) Code(s): I10 - ESSENTIAL (PRIMARY) HYPERTENSION Status: Chronic Qualifiers: Comment: controlled (7) Chronic diastolic heart failure Code(s): I50.32 - CHRONIC DIASTOLIC (CONGESTIVE) HEART FAILURE Status: Chronic Comment: stable (8) Sepsis Code(s): A41.9 - SEPSIS, UNSPECIFIED ORGANISM Status: Resolved Comment: secondary to influenza, now resolved, present on admission - Plan * . Review of Systems - Medications/Allergies Allergies/Adverse Reactions: Allergies Allergy/AdvReac Type Severity Reaction Status Date / Time Penicillins Allergy dyspnea Verified 09/13/17 21:11 zolpidem [From Ambien] Allergy "very Verified 09/13/17 21:11 loopy" Medications: Current Medications Acetaminophen (Tylenol) 650 mg PO Q4H PRN PRN Reason: Headache/Fever/Mild Pain (1-3) Acetaminophen (Tylenol) 650 mg [place] Q4H PRN PRN Reason: Headache/Fever/Mild Pain (1-3) Apixaban (Eliquis) 2.5 mg PO BID [facility] Last Admin: 08/23/18 08:16 Dose: 2.5 mg Aspirin (Ecotrin) 81 mg PO DAILY [facility] Last Admin: 08/23/18 08:18 Dose: 81 mg Atorvastatin Calcium (Lipitor) 20 mg PO DAILY [facility] Last Admin: 08/23/18 08:17 Dose: 20 mg Bisacodyl (Dulcolax) 10 mg PO DAILYPRN PRN PRN Reason: Constipation Calcitriol (Rocaltrol) 0.25 mcg PO DAILY [facility] Last Admin: 08/23/18 08:16 Dose: 0.25 mcg Carvedilol (Coreg) 12.5 mg PO BID [facility] Last Admin: 08/23/18 08:17 Dose: 12.5 mg Chlordiazepoxide HCl (Librium) 10 mg PO TID [facility] Last Admin: 08/23/18 15:24 Dose: 10 mg Cyanocobalamin (Vitamin B-12) 500 mcg PO BID [facility] Last Admin: 08/23/18 08:16 Dose: 500 mcg Cyclosporine (Restasis) 0 ml EA EYE BID [facility] Last Admin: 08/23/18 08:56 Dose: 0.4 ml Dextrose/Water (Dextrose 50%) 25 gm SLOW IVP PRN PRN PRN Reason: Hypoglycemia Famotidine (Pepcid) 20 mg SLOW IVP QAM [facility] Last Admin: 08/23/18 08:18 Dose: Not Given Famotidine (Pepcid) 20 mg PO QAM [facility] Last Admin: 08/23/18 08:16 Dose: 20 mg Fish Oil (Fish Oil) 1,000 mg PO DAILY [facility] Last Admin: 08/23/18 08:16 Dose: 1,000 mg Gabapentin (Neurontin) 600 mg PO BID [facility] Last Admin: 08/23/18 08:16 Dose: 600 mg Glucagon (Glucagon) 1 mg IM PRN PRN PRN Reason: Hypoglycemia Guaifenesin/Dextromethorphan (Robitussin Dm) 15 ml PO Q4H PRN PRN Reason: Cough Fentanyl Citrate 2,000 mcg/ (Sodium Chloride) 100 mls @ 0 mls/hr IV INF [facility]; Protocol Stop: 09/19/18 18:34 Last Admin: 08/23/18 01:17 Dose: 100 mls Fentanyl Citrate (Fentanyl Bolus) 250 mls @ 0 mls/hr IVPB PRN PRN PRN Reason: Breakthrough pain/agitation Stop: 09/19/18 18:34 Cefepime HCl 1 gm/ Sodium (Chloride) 100 mls @ 200 mls/hr IVPB Q12HR [facility] Last Admin: 08/23/18 08:18 Dose: 100 mls Levofloxacin 750 mg/ Device 150 mls @ 100 mls/hr IVPB Q2D@1800 RYAN Dextrose/Water (D5w) 1,000 mls @ 0 mls/hr IV .Q0M PRN PRN Reason: Hypoglycemia Sodium Bicarbonate 150 meq/ (Dextrose/Water) 1,150 mls @ 50 mls/hr IV .Q23H [facility] Last Admin: 08/23/18 08:55 Dose: 1,150 mls Insulin Human Regular (Humulin R) 0 units SC .AGGRESSIVE SLIDING PRN PRN Reason: Aggressive Sliding Scale Last Admin: 08/23/18 16:06 Dose: 13 unit Iron/Minerals/Multivitamins (Theragran M) 1 tab PO DAILY [facility] Last Admin: 08/23/18 08:18 Dose: 1 tab Lorazepam (Ativan) 2 mg SLOW IVP Q1H PRN PRN Reason: Breakthrough agitation Stop: 09/19/18 18:34 Magnesium Oxide (Magnesium Oxide) 500 mg PO DAILY [facility] Last Admin: 08/23/18 08:16 Dose: 500 mg Methylprednisolone Sodium Succinate (Solu-Medrol) 40 mg IVP BID [facility] Last Admin: 08/23/18 08:18 Dose: 40 mg Miscellaneous Medication (Pharmacy To Dose) 1 each IVPB PRN PRN PRN Reason: Pharmacy to dose Miscellaneous Medication (Ventilator Sedation Protocol) 1 each FS ONE [facility] Stop: 09/19/18 18:01 Morphine Sulfate (Morphine) 2 mg SLOW IVP Q1H PRN PRN Reason: BREAKTHROUGH PAIN/Agitation Stop: 09/19/18 18:34 Discontinue Previous Narcotic Pain Medications And Benzodiazepines 1 each FS .ONE [facility] Stop: 09/19/18 18:34 Ondansetron HCl (Zofran Odt) 4 mg PO Q6H PRN PRN Reason: Nausea/Vomiting Ondansetron HCl (Zofran) 4 mg IVP Q6H PRN PRN Reason: Nausea/Vomiting Propofol (Diprivan) 1,000 mg IV INF PRN; Protocol PRN Reason: TO ACHIEVE GOAL RASS Stop: 09/19/18 18:34 Last Admin: 08/23/18 10:48 Dose: 1,000 mg Propofol (Diprivan Bolus) 20 mg IV Q5MIN PRN PRN Reason: BREAKTHROUGH AGITATION Stop: 09/19/18 18:34 Last Admin: 08/21/18 20:30 Dose: 20 mg Senna/Docusate Sodium (Senokot S) 2 tab PO BID PRN PRN Reason: Constipation Sodium Chloride (Flush - Normal Saline) 10 ml IVF Q12HR [facility] Last Admin: 08/23/18 09:11 Dose: 10 ml Sodium Chloride (Flush - Normal Saline) 10 ml IVF PRN PRN PRN Reason: Saline Flush Tamsulosin HCl (Flomax) 0.4 mg PO DAILY [facility] Last Admin: 08/23/18 09:06 Dose: 0.4 mg
--- NOTE | 2018-08-23 23:30 | PRG ---
DATE OF SERVICE: 08/23/2018 SUBJECTIVE: The patient is seen and examined, noted with the following vital signs. PHYSICAL EXAMINATION: VITAL SIGNS: Blood pressure 130/70, pulse of 70, O2 saturation of 94%. HEENT: Unremarkable. CARDIOVASCULAR: First and second heart sounds were heard. RESPIRATORY: Clear to auscultation. DIGESTIVE: A benign abdomen. EXTREMITIES: No peripheral edema. SKIN: No new gross rash. LYMPHATICS: No peripheral lymphadenopathy. PLAN: 1. Continue current renal supportive measures. 2. Further management to be dependent on the clinical course. 3. Continue to renally dose all medications. 4. Pay very close attention to the potassium level. The patient noted with the following vital signs; afebrile, blood pressure 139/62, O2 saturation 99%. HEENT: Unremarkable. Moist oral mucosa. NECK: Supple. No conjunctival injection or icterus. CARDIOVASCULAR: First and second heart sounds were heard. RESPIRATORY: Clear to auscultation. DIGESTIVE: Revealed a benign abdomen with positive bowel sounds. EXTREMITIES: No peripheral edema. SKIN: No new gross rash. LYMPHATICS: No peripheral lymphadenopathy. IMPRESSION: . Job ID: [id number]
[2018-08-24] MEDS: Propofol 1,000 MG/100 ML VIAL IV PRN ×3 (04:37→19:02)
[2018-08-24] MEDS: Insulin Regular 300 UNITS/3 ML VIAL SC PRN ×4 (04:38→20:06)
[2018-08-24 05:10] LABS: Band 14 % (5-11); Hemoglobin 8.6 g/dL (14.0-18.0); Lymphocytes 10 % (21-51); MDiff Complete? YES; Mean Corpuscular HGB CONC 32.9 g/dL (32.0-36.0); Mean Corpuscular Volume 97.3 fL (78.0-98.0); Mean Platelet Volume 7.5 fL (7.4-10.4); Metamyelocyte 1 % (0-0); Monocytes 12 % (0-10); Myelocyte 1 % (0-0); Neutrophil 62 % (42-75); Nucleated RBC 1 % (0); Platelet Count 90 thou/uL (130-400); Platelet Morphology Comment Appears Decreased; RBC Distribution Width 14.7 % (11.5-14.5); Red Blood Cell (RBC) Count 2.67 mill/uL (4.70-6.10); White Blood Cell (WBC) Count 4.6 thou/uL (4.8-10.8)
[2018-08-24 05:13] LABS: Anion Gap 11 mmol/L (10-20); BUN (Urea Nitrogen) 60 mg/dL (8.4-25.7); Calc. Creatinine Clearance 0 mL/min (70-130); Calcium 7.3 mg/dL (7.8-10.44); Carbon Dioxide 27 mmol/L (23-31); Chloride 112 mmol/L (98-107); Estimated GFR-MDRD 41; Glucose 303 mg/dL (83-110); Potassium 5.5 mmol/L (3.5-5.1); Sodium 144 mmol/L (136-145)
[2018-08-24] MEDS: fentaNYL Citrate/PF 2,000 MCG in Sodium Chloride 0.9% 60 ML IV SCH (06:02)
[2018-08-24 07:31] LABS: ALV-art Gradient 298.275 (0-20); Actual Bicarbonate (HCO3a) 25.4 mEq/L (22-28); Base Excess (BEa) 0.1 mEq/L (-2.0 to +3.0); CO2 Tension 44.5 mmHg (35.0-45.0); Calcium, Ionized 1.04 mmol/L (1.12-1.30); Carboxyhemoglobin (COHb) 1.4 gm% (0.0-3.0); Hemoglobin (Hb) 8.7 g/dL (14.0-18.0); O2 Tension (PaO2) 73.9 mmHg (> 60.0); Potassium - ABG Lab 5.24 mmol/L (3.70-5.30); Puncture Site RB; pH, Arterial 7.38 (7.35-7.45)
[2018-08-24] MEDS: Sodium Bicarbonate 150 MEQ in Dextrose 5% in Water 1,000 ML IV SCH (07:34)
[2018-08-24] MEDS: Gabapentin 300 MG CAP PO SCH ×2 (08:00→20:08)
[2018-08-24] MEDS: Cyanocobalamin (Vitamin B-12) 1,000 MCG TAB PO SCH ×2 (08:00→20:09)
[2018-08-24] MEDS: Aspirin 81 mg Enteric Coated Tablet PO SCH (08:01)
[2018-08-24] MEDS: Calcitriol 0.25 MCG CAP PO SCH (08:01)
[2018-08-24] MEDS: Magnesium Oxide 250 MG TAB PO SCH (08:01)
[2018-08-24] MEDS: Apixaban 2.5 MG TAB PO SCH (08:01)
[2018-08-24] MEDS: Atorvastatin Calcium 20 MG TAB PO SCH (08:02)
[2018-08-24] MEDS: Multivitamin W/ Minerals 1 TAB PO SCH (08:02)
[2018-08-24] MEDS: Fish Oil 1,000 MG CAP PO SCH (08:02)
[2018-08-24] MEDS: Cefepime 1 GM in Sodium Chloride 0.9% 100 ML IVPB SCH ×2 (08:02→20:07)
[2018-08-24] MEDS: Carvedilol 25 MG TAB PO SCH ×2 (08:02→20:09)
[2018-08-24] MEDS: cycloSPORINE 0.05% Ophthalmic Droperette EA EYE SCH ×2 (08:03→20:08)
[2018-08-24] MEDS: Famotidine 20 MG TAB PO SCH (08:03)
[2018-08-24] MEDS: Famotidine/PF 20 mg/2ml Vial SLOW IVP SCH (08:03)
[2018-08-24] MEDS: Tamsulosin HCl 0.4 MG CAP PO SCH (08:04)
--- NOTE | 2018-08-24 08:32 | RAD ---
CHEST ONE VIEW: Comparison: 08-23-18 History: Respiratory distress. Ventilated patient. FINDINGS: Re-demonstration of endotracheal tube, nasogastric tube and a left sided transvenous pacemaker. There is persistent and slightly worsening opacification in the left and right lungs suggesting progressio n of pleural effusion and parenchymal changes. Pneumothorax is not appreciated. IMPRESSION: Worsening opacification in the left and right lung. POS: [facility]
[2018-08-24] MEDS: NPH, Human Insulin Isophane 300 UNIT/3 ML VIAL SC SCH ×2 (08:38→20:05)
[2018-08-24] MEDS ORDERED: Carvedilol 25 MG TAB PO SCH ×2 (09:18→09:45)
--- NOTE | 2018-08-24 10:09 | PRG ---
DATE OF SERVICE: 08/24/2018 PULMONARY CRITICAL CARE PROGRESS NOTE 35 minutes of critical time. The patient remains intubated on mechanical ventilation. There have been no acute changes overnight. OBJECTIVE: VITAL SIGNS: On exam, his temperature is 98.4 with no fever, pulse 73, blood pressure 163/74. Intake for 24 hours 3238, output 1895. HEENT: Unremarkable. NECK: No JVD. LUNGS: Coarse breath sounds bilaterally with diminished breath sounds at left upper lobe. CARDIAC: S1 and S2. Regular. ABDOMEN: Soft and nontender. EXTREMITIES: Edematous. LABORATORY DATA: Sodium 144, potassium 5.5, chloride 112, CO2 of 27, BUN 60, creatinine 1.6, glucose 303. PH 7.38, pCO2 of 44, PO2 of 74 on SIMV rate 16, tidal volume of 500, PEEP 10, pressure support 10, FiO2 of 60%. White blood cell count 4.6, hematocrit 26.0, and platelet count 90. ASSESSMENT: 1. Acute respiratory failure requiring mechanical ventilation. 2. Left upper lobe atelectasis on chest x-ray today. 3. Acute respiratory distress syndrome with significant hypoxemia despite adequate ventilator settings. 4. Hyperkalemia. 5. Influenza type B. RECOMMENDATION: 1. Bronchoscopy-see separate operative note. 2. Not weanable at this time. 3. His platelet count has slipped below 100, so I would avoid any anticoagulation for the time being. 4. Use mechanical prophylaxis for DVT prophylaxis. 5. Add NPH insulin for the hyperglycemia. 6. Continue tube feeds. 7. Discontinue bicarbonate from IV fluids. 8. Wean steroid dose. Job ID: [id number]
--- NOTE | 2018-08-24 10:38 | OP ---
DATE OF PROCEDURE: 08/24/2018 PROCEDURE PERFORMED: Fiberoptic bronchoscopy with endobronchial lavage. PREOPERATIVE DIAGNOSIS: Left upper lobe mucus plugging. POSTOPERATIVE DIAGNOSIS: Excessive mucus plugging, both lungs. ANESTHESIA: The patient was receiving propofol continuously through the procedure as he was already on mechanical ventilation. DESCRIPTION OF PROCEDURE: This procedure was done on an emergent basis because of mucus plugging and desaturation. Ambu bronchoscope was placed down the patient's endotracheal tube through an endotracheal tube adapter while he was on mechanical ventilation. He had extensive mucous plugging present at the tip of his endotracheal tube. This was lavaged and suctioned. I think most of the mucus plug that was in the left mainstem bronchus, left upper lobe dislodged during this procedure. I first looked in the right lung. He had some copious secretions present in the right mainstem bronchus, which were removed. The right upper lobe, right middle lobe, and right lower lobe were cleared of secretions. The left upper lobe had extensive bloody secretions, which were removed. Left lower lobe was clear. The patient tolerated the procedure well. Job ID: [id number]
--- NOTE | 2018-08-24 13:13 | PDOC.PN ---
- Subjective Encounter Start Date: 08/24/18 Encounter Start Time: 09:20 Pt seen for followup re: acute hypoxic respiratory failure. Intubated, unable to complete ROS. - Objective Resuscitation Status - Order Detail: 08/18/18 23:37 Resuscitation Status Routine Resuscitation Status: FULL: Full Resuscitation MAR Reviewed: Yes Vital Signs & Weight: Vital Signs (12 hours) Temp Pulse Resp BP Pulse Ox 08/24/18 12:00 98.2 F 16 08/24/18 10:57 70 182/73 H 08/24/18 10:00 16 08/24/18 08:32 70 143/68 H 08/24/18 08:00 16 92 L 08/24/18 07:00 98.5 F 08/24/18 06:00 16 08/24/18 04:00 98.4 F 16 08/24/18 03:45 70 08/24/18 02:00 16 08/24/18 01:33 70 164/84 H Weight Admit Weight 205 lb 8 oz Weight 3.471 oz Most Recent Monitor Data Heart Rate from ECG 70 NIBP 169/68 NIBP BP-Mean 101 Respiration from ECG 16 SpO2 97 I&O: 08/23/18 08/24/18 08/25/18 06:59 06:59 06:59 Intake Total 4057.0 3238.7 640 Output Total 1250 1895 705 Balance 2807.0 1343.7 -65 Result Diagrams: 08/24/18 04:23 08/24/18 04:23 Additional Labs: Accuchecks 08/24/18 08/24/18 08/23/18 09:58 04:35 21:23 POC Glucose 268 H 296 H 339 H 08/23/18 16:06 POC Glucose 355 H EKG Reviewed by me: Yes (Tele: V-paced) Phys Exam - Physical Examination Intubated HEENT: moist MMs ETT Respiratory: clear to auscultation bilateral Cardiovascular: RRR Gastrointestinal: soft Neurological: moves all 4 limbs Psychiatric: normal affect Dx/Plan (1) Acute respiratory failure with hypoxia Code(s): J96.01 - ACUTE RESPIRATORY FAILURE WITH HYPOXIA Status: Acute Comment: Intubated, mechanically ventilated (2) Pneumonia Code(s): J18.9 - PNEUMONIA, UNSPECIFIED ORGANISM Status: Acute Qualifiers: Laterality: left Lung location: upper lobe of lung Comment: continue azithromycin, levofloxacin and cefepime (3) Acute worsening of stage 3 chronic kidney disease Code(s): N18.3 - CHRONIC KIDNEY DISEASE, STAGE 3 (MODERATE) Status: Acute Comment: creatinine improved to 1.62 today (4) Influenza B Code(s): J10.1 - FLU DUE TO OTH IDENT INFLUENZA VIRUS W OTH RESP MANIFEST Status: Acute Comment: on Tamiflu (5) Dyslipidemia Code(s): E78.5 - HYPERLIPIDEMIA, UNSPECIFIED Status: Chronic Comment: on statin (6) HTN (hypertension) Code(s): I10 - ESSENTIAL (PRIMARY) HYPERTENSION Status: Chronic Qualifiers: Comment: controlled (7) Chronic diastolic heart failure Code(s): I50.32 - CHRONIC DIASTOLIC (CONGESTIVE) HEART FAILURE Status: Chronic Comment: stable (8) Sepsis Code(s): A41.9 - SEPSIS, UNSPECIFIED ORGANISM Status: Resolved - Plan * . Review of Systems - Medications/Allergies Allergies/Adverse Reactions: Allergies Allergy/AdvReac Type Severity Reaction Status Date / Time Penicillins Allergy dyspnea Verified 09/13/17 21:11 zolpidem [From Ambien] Allergy "very Verified 09/13/17 21:11 loopy" Medications: Current Medications Acetaminophen (Tylenol) 650 mg PO Q4H PRN PRN Reason: Headache/Fever/Mild Pain (1-3) Acetaminophen (Tylenol) 650 mg MA Q4H PRN PRN Reason: Headache/Fever/Mild Pain (1-3) Aspirin (Ecotrin) 81 mg PO DAILY [facility] Last Admin: 08/24/18 08:01 Dose: 81 mg Atorvastatin Calcium (Lipitor) 20 mg PO DAILY [facility] Last Admin: 08/24/18 08:02 Dose: 20 mg Bisacodyl (Dulcolax) 10 mg PO DAILYPRN PRN PRN Reason: Constipation Calcitriol (Rocaltrol) 0.25 mcg PO DAILY [facility] Last Admin: 08/24/18 08:01 Dose: 0.25 mcg Carvedilol (Coreg) 25 mg PO BID [facility] Cyanocobalamin (Vitamin B-12) 500 mcg PO BID [facility] Last Admin: 08/24/18 08:00 Dose: 500 mcg Cyclosporine (Restasis) 0 ml EA EYE BID [facility] Last Admin: 08/24/18 08:03 Dose: 0.4 ml Dextrose/Water (Dextrose 50%) 25 gm SLOW IVP PRN PRN PRN Reason: Hypoglycemia Famotidine (Pepcid) 20 mg SLOW IVP QAM [facility] Last Admin: 08/24/18 08:03 Dose: Not Given Famotidine (Pepcid) 20 mg PO QAM [facility] Last Admin: 08/24/18 08:03 Dose: 20 mg Fish Oil (Fish Oil) 1,000 mg PO DAILY [facility] Last Admin: 08/24/18 08:02 Dose: 1,000 mg Gabapentin (Neurontin) 600 mg PO BID [facility] Last Admin: 08/24/18 08:00 Dose: 600 mg Glucagon (Glucagon) 1 mg IM PRN PRN PRN Reason: Hypoglycemia Guaifenesin/Dextromethorphan (Robitussin Dm) 15 ml PO Q4H PRN PRN Reason: Cough Fentanyl Citrate 2,000 mcg/ (Sodium Chloride) 100 mls @ 0 mls/hr IV INF [facility]; Protocol Stop: 09/19/18 18:34 Last Admin: 08/24/18 06:02 Dose: 100 mls Fentanyl Citrate (Fentanyl Bolus) 250 mls @ 0 mls/hr IVPB PRN PRN PRN Reason: Breakthrough pain/agitation Stop: 09/19/18 18:34 Cefepime HCl 1 gm/ Sodium (Chloride) 100 mls @ 200 mls/hr IVPB Q12HR [facility] Last Admin: 08/24/18 08:02 Dose: 100 mls Levofloxacin 750 mg/ Device 150 mls @ 100 mls/hr IVPB Q2D@1800 [facility] Dextrose/Water (D5w) 1,000 mls @ 0 mls/hr IV .Q0M PRN PRN Reason: Hypoglycemia Insulin Human NPH (Humulin N) 20 unit SC Q12HR [facility] Last Admin: 08/24/18 08:38 Dose: 20 unit Insulin Human Regular (Humulin R) 0 units SC .AGGRESSIVE SLIDING PRN PRN Reason: Aggressive Sliding Scale Last Admin: 08/24/18 09:57 Dose: 9 unit Iron/Minerals/Multivitamins (Theragran M) 1 tab PO DAILY [facility] Last Admin: 08/24/18 08:02 Dose: 1 tab Lorazepam (Ativan) 2 mg SLOW IVP Q1H PRN PRN Reason: Breakthrough agitation Stop: 09/19/18 18:34 Magnesium Oxide (Magnesium Oxide) 500 mg PO DAILY [facility] Last Admin: 08/24/18 08:01 Dose: 500 mg Methylprednisolone Sodium Succinate (Solu-Medrol) 20 mg IVP BID [facility] Last Admin: 08/24/18 08:39 Dose: Not Given Miscellaneous Medication (Pharmacy To Dose) 1 each IVPB PRN PRN PRN Reason: Pharmacy to dose Miscellaneous Medication (Ventilator Sedation Protocol) 1 each FS ONE [facility] Stop: 09/19/18 18:01 Morphine Sulfate (Morphine) 2 mg SLOW IVP Q1H PRN PRN Reason: BREAKTHROUGH PAIN/Agitation Stop: 09/19/18 18:34 Discontinue Previous Narcotic Pain Medications And Benzodiazepines 1 each FS .ONE [facility] Stop: 09/19/18 18:34 Ondansetron HCl (Zofran Odt) 4 mg PO Q6H PRN PRN Reason: Nausea/Vomiting Ondansetron HCl (Zofran) 4 mg IVP Q6H PRN PRN Reason: Nausea/Vomiting Propofol (Diprivan) 1,000 mg IV INF PRN; Protocol PRN Reason: TO ACHIEVE GOAL RASS Stop: 09/19/18 18:34 Last Admin: 08/24/18 11:53 Dose: 1,000 mg Propofol (Diprivan Bolus) 20 mg IV Q5MIN PRN PRN Reason: BREAKTHROUGH AGITATION Stop: 09/19/18 18:34 Last Admin: 08/21/18 20:30 Dose: 20 mg Senna/Docusate Sodium (Senokot S) 2 tab PO BID PRN PRN Reason: Constipation Sodium Chloride (Flush - Normal Saline) 10 ml IVF Q12HR [facility] Last Admin: 08/24/18 08:04 Dose: 10 ml Sodium Chloride (Flush - Normal Saline) 10 ml IVF PRN PRN PRN Reason: Saline Flush Tamsulosin HCl (Flomax) 0.4 mg PO DAILY [facility] Last Admin: 08/24/18 08:04 Dose: 0.4 mg
[2018-08-24] MEDS: hydrALAZINE 20 MG/ML VIAL SLOW IVP PRN (23:15)
[2018-08-25] MEDS: Propofol 1,000 MG/100 ML VIAL IV PRN ×3 (00:54→09:31)
[2018-08-25] MEDS: Insulin Regular 300 UNITS/3 ML VIAL SC PRN ×3 (04:22→23:17)
[2018-08-25 04:40] LABS: Band 4 % (5-11); Hypochromia SLIGHT = 6-15 cells (100X) (0-5/hpf); Lymphocytes 6 % (21-51); MDiff Complete? YES; Mean Corpuscular HGB CONC 32.6 g/dL (32.0-36.0); Mean Corpuscular Hemoglobin 31.6 pg (27.0-31.0); Mean Corpuscular Volume 96.8 fL (78.0-98.0); Mean Platelet Volume 7.3 fL (7.4-10.4); Monocytes 2 % (0-10); Neutrophil 88 % (42-75); Platelet Count 75 thou/uL (130-400); Platelet Morphology Comment Appears Decreased; RBC Distribution Width 14.6 % (11.5-14.5); Red Blood Cell (RBC) Count 2.86 mill/uL (4.70-6.10); White Blood Cell (WBC) Count 4.6 thou/uL (4.8-10.8)
[2018-08-25 04:43] LABS: Anion Gap 12 mmol/L (10-20); BUN (Urea Nitrogen) 56 mg/dL (8.4-25.7); Calc. Creatinine Clearance 80 mL/min (70-130); Calcium 7.7 mg/dL (7.8-10.44); Carbon Dioxide 28 mmol/L (23-31); Chloride 112 mmol/L (98-107); Estimated GFR-MDRD 52; Glucose 256 mg/dL (83-110); Potassium 5.5 mmol/L (3.5-5.1); Sodium 146 mmol/L (136-145)
[2018-08-25] MEDS: hydrALAZINE 20 MG/ML VIAL SLOW IVP PRN ×2 (06:06→23:20)
--- NOTE | 2018-08-25 08:22 | RAD ---
PORTABLE CHEST: History: Respiratory distress. Comparison: Prior day's exam. FINDINGS: Endotracheal and NG tubes are in satisfactory position. The parenchymal changes in the left upper lob e noted on the prior examination have largely resolved, suggesting atelectasis or possibly related to mucous plugging. Bibasilar lung changes are fairly similar. IMPRESSION: Resolution of left upper lobe parenchymal change. Otherwise, essentially stable exam. POS: [facility]
[2018-08-25 08:30] LABS: Actual Bicarbonate (HCO3a) 27.6 mEq/L (22-28); Base Excess (BEa) 3.2 mEq/L (-2.0 to +3.0); CO2 Tension 41.2 mmHg (35.0-45.0); Calcium, Ionized 1.07 mmol/L (1.12-1.30); Carboxyhemoglobin (COHb) 1.1 gm% (0.0-3.0); Hemoglobin (Hb) 9.4 g/dL (14.0-18.0); O2 Tension (PaO2) 76.6 mmHg (> 60.0); Potassium - ABG Lab 5.04 mmol/L (3.70-5.30); pH, Arterial 7.44 (7.35-7.45)
[2018-08-25 08:42] LABS: Puncture Site L.R.
[2018-08-25] MEDS: Famotidine/PF 20 mg/2ml Vial SLOW IVP SCH (09:32)
[2018-08-25] MEDS: Famotidine 20 MG TAB PO SCH (09:33)
[2018-08-25] MEDS: Cefepime 1 GM in Sodium Chloride 0.9% 100 ML IVPB SCH ×2 (09:33→21:06)
[2018-08-25] MEDS: Atorvastatin Calcium 20 MG TAB PO SCH (09:34)
[2018-08-25] MEDS: Aspirin 81 mg Enteric Coated Tablet PO SCH (09:34)
[2018-08-25] MEDS: Carvedilol 25 MG TAB PO SCH ×2 (09:34→21:06)
[2018-08-25] MEDS: Fish Oil 1,000 MG CAP PO SCH (09:34)
[2018-08-25] MEDS: Gabapentin 300 MG CAP PO SCH ×2 (09:34→21:06)
[2018-08-25] MEDS: Tamsulosin HCl 0.4 MG CAP PO SCH (09:35)
[2018-08-25] MEDS: Magnesium Oxide 250 MG TAB PO SCH (09:35)
[2018-08-25] MEDS: Calcitriol 0.25 MCG CAP PO SCH (09:35)
[2018-08-25] MEDS: Multivitamin W/ Minerals 1 TAB PO SCH (09:35)
--- NOTE | 2018-08-25 09:39 | PRG ---
DATE OF SERVICE: 08/25/2018 TIME SPENT: A 35 minutes of critical care time. SUBJECTIVE: The patient remains intubated on mechanical ventilation. There have been no acute changes overnight. He is heavily sedated. OBJECTIVE: VITAL SIGNS: Temperature is 98.4, pulse 70, blood pressure 127/63. He is currently not requiring any vasopressors. A 24-hour intake 2447, output 3165. HEENT: Unremarkable. NECK: No JVD. LUNGS: Coarse breath sounds. CARDIAC: S1 and S2, regular. ABDOMEN: Soft. EXTREMITIES: Trace edema. LABORATORY DATA: Sodium 146, potassium 5.5, chloride 112, CO2 of 28, BUN 56, creatinine 1.3, glucose 256. PH 7.44, pCO2 of 41, PO2 of 76 on SIMV rate 16, tidal volume 500, PEEP 10, pressure support 10, FiO2 of 40%. White blood cell count 4.6, hemoglobin 9, hematocrit 27.7, and platelet count 75. ASSESSMENT: 1. Influenza. 2. Pneumonia. 3. Left upper lobe collapse that was improved after bronchoscopy yesterday. 4. Hyperkalemia, which may be aggravated by the current tube feed formulation. 5. Thrombocytopenia. PLAN: 1. Continue antibiotics. 2. Adjust ventilator settings by turning rate down. 3. Hold any type of heparin/Lovenox. 4. Increase the NPH insulin given continued hyperglycemia. Job ID: [id number]
[2018-08-25] MEDS: NPH, Human Insulin Isophane 300 UNIT/3 ML VIAL SC SCH ×2 (09:40→21:16)
[2018-08-25] MEDS: cycloSPORINE 0.05% Ophthalmic Droperette EA EYE SCH ×2 (10:34→21:15)
[2018-08-25] MEDS: Cyanocobalamin (Vitamin B-12) 1,000 MCG TAB PO SCH ×2 (10:41→21:06)
--- NOTE | 2018-08-25 15:12 | PDOC.PN ---
- Subjective Encounter Start Date: 08/25/18 Encounter Start Time: 11:40 Pt seen for followup re: acute hypoxic respiratory failure. Unable to complete VINAYAK due to intubated status. - Objective Resuscitation Status - Order Detail: 08/18/18 23:37 Resuscitation Status Routine Resuscitation Status: FULL: Full Resuscitation MAR Reviewed: Yes Vital Signs & Weight: Vital Signs (12 hours) Temp Pulse Resp BP Pulse Ox 08/25/18 12:00 98.6 F 16 08/25/18 11:40 70 125/65 08/25/18 10:00 16 08/25/18 08:17 71 131/67 08/25/18 08:00 98.5 F 16 99 08/25/18 06:06 70 08/25/18 06:00 16 08/25/18 04:00 98.4 F 16 Weight Admit Weight 205 lb 8 oz Weight 220 lb 14.451 oz Most Recent Monitor Data Heart Rate from ECG 70 NIBP 157/77 NIBP BP-Mean 103 Respiration from ECG 16 SpO2 98 I&O: 08/24/18 08/25/18 08/26/18 06:59 06:59 06:59 Intake Total 3238.7 2447 60 Output Total 1895 3165 660 Balance 1343.7 -718 -600 Result Diagrams: 08/25/18 04:10 08/25/18 03:30 Additional Labs: Accuchecks 08/25/18 08/25/18 08/24/18 09:46 04:15 19:55 POC Glucose 244 H 244 H 252 H 08/24/18 15:41 POC Glucose 270 H EKG Reviewed by me: Yes (Tele: V-paced) Phys Exam - Physical Examination Obesity HEENT: moist MMs ETT Respiratory: clear to auscultation bilateral Cardiovascular: RRR Gastrointestinal: soft Deviation from normal: Unable to assess Dx/Plan (1) Acute respiratory failure with hypoxia Code(s): J96.01 - ACUTE RESPIRATORY FAILURE WITH HYPOXIA Status: Acute Comment: Intubated, mechanically ventilated, managed in CCU (2) Pneumonia Code(s): J18.9 - PNEUMONIA, UNSPECIFIED ORGANISM Status: Acute Qualifiers: Laterality: left Lung location: upper lobe of lung Comment: continue levofloxacin and cefepime (3) Acute worsening of stage 3 chronic kidney disease Code(s): N18.3 - CHRONIC KIDNEY DISEASE, STAGE 3 (MODERATE) Status: Acute Comment: creatinine improved to 1.32 today (4) Influenza B Code(s): J10.1 - FLU DUE TO OTH IDENT INFLUENZA VIRUS W OTH RESP MANIFEST Status: Acute Comment: treated with Tamiflu (5) Dyslipidemia Code(s): E78.5 - HYPERLIPIDEMIA, UNSPECIFIED Status: Chronic Comment: on statin (6) HTN (hypertension) Code(s): I10 - ESSENTIAL (PRIMARY) HYPERTENSION Status: Chronic Qualifiers: Comment: controlled (7) Chronic diastolic heart failure Code(s): I50.32 - CHRONIC DIASTOLIC (CONGESTIVE) HEART FAILURE Status: Chronic Comment: stable (8) Sepsis Code(s): A41.9 - SEPSIS, UNSPECIFIED ORGANISM Status: Resolved - Plan * . Review of Systems - Medications/Allergies Allergies/Adverse Reactions: Allergies Allergy/AdvReac Type Severity Reaction Status Date / Time Penicillins Allergy dyspnea Verified 09/13/17 21:11 zolpidem [From Ambien] Allergy "very Verified 09/13/17 21:11 loopy" Medications: Current Medications Acetaminophen (Tylenol) 650 mg PO Q4H PRN PRN Reason: Headache/Fever/Mild Pain (1-3) Acetaminophen (Tylenol) 650 mg [place] Q4H PRN PRN Reason: Headache/Fever/Mild Pain (1-3) Aspirin (Ecotrin) 81 mg PO DAILY [facility] Last Admin: 08/25/18 09:34 Dose: 81 mg Atorvastatin Calcium (Lipitor) 20 mg PO DAILY [facility] Last Admin: 08/25/18 09:34 Dose: 20 mg Bisacodyl (Dulcolax) 10 mg PO DAILYPRN PRN PRN Reason: Constipation Calcitriol (Rocaltrol) 0.25 mcg PO DAILY [facility] Last Admin: 08/25/18 09:35 Dose: 0.25 mcg Carvedilol (Coreg) 25 mg PO BID [facility] Last Admin: 08/25/18 09:34 Dose: 25 mg Cyanocobalamin (Vitamin B-12) 500 mcg PO BID [facility] Last Admin: 08/25/18 10:41 Dose: 500 mcg Cyclosporine (Restasis) 0 ml EA EYE BID [facility] Last Admin: 08/25/18 10:34 Dose: 0.4 ml Dextrose/Water (Dextrose 50%) 25 gm SLOW IVP PRN PRN PRN Reason: Hypoglycemia Famotidine (Pepcid) 20 mg SLOW IVP QAM [facility] Last Admin: 08/25/18 09:32 Dose: 20 mg Famotidine (Pepcid) 20 mg PO QAM [facility] Last Admin: 08/25/18 09:33 Dose: Not Given Fish Oil (Fish Oil) 1,000 mg PO DAILY [facility] Last Admin: 08/25/18 09:34 Dose: 1,000 mg Gabapentin (Neurontin) 600 mg PO BID [facility] Last Admin: 08/25/18 09:34 Dose: 600 mg Glucagon (Glucagon) 1 mg IM PRN PRN PRN Reason: Hypoglycemia Guaifenesin/Dextromethorphan (Robitussin Dm) 15 ml PO Q4H PRN PRN Reason: Cough Hydralazine HCl (Apresoline) 10 mg SLOW IVP Q4H PRN PRN Reason: BP >160/100 Last Admin: 08/25/18 06:06 Dose: 10 mg Fentanyl Citrate 2,000 mcg/ (Sodium Chloride) 100 mls @ 0 mls/hr IV INF [facility]; Protocol Stop: 09/19/18 18:34 Last Admin: 08/24/18 06:02 Dose: 100 mls Fentanyl Citrate (Fentanyl Bolus) 250 mls @ 0 mls/hr IVPB PRN PRN PRN Reason: Breakthrough pain/agitation Stop: 09/19/18 18:34 Cefepime HCl 1 gm/ Sodium (Chloride) 100 mls @ 200 mls/hr IVPB Q12HR [facility] Last Admin: 08/25/18 09:33 Dose: 100 mls Levofloxacin 750 mg/ Device 150 mls @ 100 mls/hr IVPB Q2D@1800 [facility] Last Admin: 08/24/18 17:00 Dose: 150 mls Dextrose/Water (D5w) 1,000 mls @ 0 mls/hr IV .Q0M PRN PRN Reason: Hypoglycemia Insulin Human NPH (Humulin N) 35 unit SC Q12HR [facility] Last Admin: 08/25/18 09:40 Dose: 35 unit Insulin Human Regular (Humulin R) 0 units SC .AGGRESSIVE SLIDING PRN PRN Reason: Aggressive Sliding Scale Last Admin: 08/25/18 04:22 Dose: 6 unit Iron/Minerals/Multivitamins (Theragran M) 1 tab PO DAILY [facility] Last Admin: 08/25/18 09:35 Dose: 1 tab Lorazepam (Ativan) 2 mg SLOW IVP Q1H PRN PRN Reason: Breakthrough agitation Stop: 09/19/18 18:34 Magnesium Oxide (Magnesium Oxide) 500 mg PO DAILY [facility] Last Admin: 08/25/18 09:35 Dose: 500 mg Methylprednisolone Sodium Succinate (Solu-Medrol) 20 mg IVP BID [facility] Last Admin: 08/25/18 09:32 Dose: 20 mg Miscellaneous Medication (Pharmacy To Dose) 1 each IVPB PRN PRN PRN Reason: Pharmacy to dose Miscellaneous Medication (Ventilator Sedation Protocol) 1 each FS ONE [facility] Stop: 09/19/18 18:01 Morphine Sulfate (Morphine) 2 mg SLOW IVP Q1H PRN PRN Reason: BREAKTHROUGH PAIN/Agitation Stop: 09/19/18 18:34 Discontinue Previous Narcotic Pain Medications And Benzodiazepines 1 each FS .ONE [facility] Stop: 09/19/18 18:34 Ondansetron HCl (Zofran Odt) 4 mg PO Q6H PRN PRN Reason: Nausea/Vomiting Ondansetron HCl (Zofran) 4 mg IVP Q6H PRN PRN Reason: Nausea/Vomiting Propofol (Diprivan) 1,000 mg IV INF PRN; Protocol PRN Reason: TO ACHIEVE GOAL RASS Stop: 09/19/18 18:34 Last Admin: 08/25/18 09:31 Dose: 1,000 mg Propofol (Diprivan Bolus) 20 mg IV Q5MIN PRN PRN Reason: BREAKTHROUGH AGITATION Stop: 09/19/18 18:34 Last Admin: 08/21/18 20:30 Dose: 20 mg Senna/Docusate Sodium (Senokot S) 2 tab PO BID PRN PRN Reason: Constipation Sodium Chloride (Flush - Normal Saline) 10 ml IVF Q12HR [facility] Last Admin: 08/25/18 10:35 Dose: 10 ml Sodium Chloride (Flush - Normal Saline) 10 ml IVF PRN PRN PRN Reason: Saline Flush Tamsulosin HCl (Flomax) 0.4 mg PO DAILY [facility] Last Admin: 08/25/18 09:35 Dose: 0.4 mg
[2018-08-25] MEDS: fentaNYL Citrate/PF 2,000 MCG in Sodium Chloride 0.9% 60 ML IV SCH (22:16)
[2018-08-26] MEDS: Propofol 1,000 MG/100 ML VIAL IV PRN ×2 (00:10→13:11)
[2018-08-26] MEDS: Insulin Regular 300 UNITS/3 ML VIAL SC PRN ×2 (04:13→16:10)
[2018-08-26 04:47] LABS: Anion Gap 13 mmol/L (10-20); BUN (Urea Nitrogen) 56 mg/dL (8.4-25.7); Calc. Creatinine Clearance 63 mL/min (70-130); Calcium 8.2 mg/dL (7.8-10.44); Carbon Dioxide 26 mmol/L (23-31); Chloride 113 mmol/L (98-107); Estimated GFR-MDRD 54; Glucose 196 mg/dL (83-110); Potassium 5.4 mmol/L (3.5-5.1); Sodium 147 mmol/L (136-145)
[2018-08-26 04:58] LABS: Band 11 % (5-11); Hemoglobin 9.4 g/dL (14.0-18.0); Lymphocytes 6 % (21-51); MDiff Complete? YES; Mean Corpuscular HGB CONC 33.1 g/dL (32.0-36.0); Mean Corpuscular Hemoglobin 32.1 pg (27.0-31.0); Mean Corpuscular Volume 97.2 fL (78.0-98.0); Mean Platelet Volume 7.8 fL (7.4-10.4); Metamyelocyte 2 % (0-0); Monocytes 8 % (0-10); Myelocyte 1 % (0-0); Neutrophil 72 % (42-75); Platelet Count 96 thou/uL (130-400); Platelet Morphology Comment Appears Decreased; RBC Distribution Width 15.1 % (11.5-14.5); Red Blood Cell (RBC) Count 2.91 mill/uL (4.70-6.10); White Blood Cell (WBC) Count 5.6 thou/uL (4.8-10.8)
[2018-08-26 07:35] LABS: Base Excess (BEa) 2.2 mEq/L (-2.0 to +3.0); CO2 Tension 42.8 mmHg (35.0-45.0); Calcium, Ionized 1.18 mmol/L (1.12-1.30); Carboxyhemoglobin (COHb) 1.5 gm% (0.0-3.0); O2 Tension (PaO2) 88.7 mmHg (> 60.0); Potassium - ABG Lab 5.09 mmol/L (3.70-5.30); pH, Arterial 7.42 (7.35-7.45)
[2018-08-26 07:37] LABS: Puncture Site RR
[2018-08-26] MEDS: Aspirin 81 mg Enteric Coated Tablet PO SCH (08:49)
[2018-08-26] MEDS: Calcitriol 0.25 MCG CAP PO SCH (08:49)
[2018-08-26] MEDS: Atorvastatin Calcium 20 MG TAB PO SCH (08:49)
[2018-08-26] MEDS: Carvedilol 25 MG TAB PO SCH ×2 (08:50→20:27)
[2018-08-26] MEDS: Cefepime 1 GM in Sodium Chloride 0.9% 100 ML IVPB SCH ×2 (08:50→20:26)
[2018-08-26] MEDS: Fish Oil 1,000 MG CAP PO SCH (08:51)
[2018-08-26] MEDS: Magnesium Oxide 250 MG TAB PO SCH (08:51)
[2018-08-26] MEDS: Gabapentin 300 MG CAP PO SCH ×2 (08:51→20:27)
[2018-08-26] MEDS: Famotidine/PF 20 mg/2ml Vial SLOW IVP SCH ×2 (08:51→20:27)
[2018-08-26] MEDS: Famotidine 20 MG TAB PO SCH ×2 (08:51→20:28)
[2018-08-26] MEDS: Multivitamin W/ Minerals 1 TAB PO SCH (08:52)
[2018-08-26] MEDS: Tamsulosin HCl 0.4 MG CAP PO SCH (08:53)
[2018-08-26] MEDS: cycloSPORINE 0.05% Ophthalmic Droperette EA EYE SCH ×2 (08:54→20:29)
[2018-08-26] MEDS: Cyanocobalamin (Vitamin B-12) 1,000 MCG TAB PO SCH ×2 (09:01→20:29)
--- NOTE | 2018-08-26 09:03 | RAD ---
AP VIEW CHEST: Date: 08/26/18 HISTORY: Ventilator-dependent patient. FINDINGS: Comparison made to previous exam from 08/25/18. AP view of chest demonstrates a nasogastric tube in place. Endotracheal tube is in good position. A d ual lead intracardiac pacing device is seen. Cardiomegaly is seen. Pulmonary vascular congestion seen. Numerous EKG leads seen over the chest. A p rosthetic cardiac valve is in place. Bilateral pleural effusions seen. Pulmonary vascular congestion seen. Air space opacities seen bilate rally. IMPRESSION: Cardiomegaly and pulmonary vascular congestion with bilateral pleural effusions seen. POS: [facility]
--- NOTE | 2018-08-26 09:33 | PRG ---
DATE OF SERVICE: 08/26/2018 CRITICAL CARE PROGRESS NOTE SUBJECTIVE: He remains on mechanical ventilation, but no acute changes overnight. OBJECTIVE: VITAL SIGNS: His temperature is 98.3, pulse 70, blood pressure 134/63, O2 saturation 100%. Currently, on propofol and fentanyl drip. HEENT: Unremarkable. NECK: No JVD. CHEST: Fairly clear anteriorly. CARDIAC: S1 and S2. Regular. ABDOMEN: Soft. EXTREMITIES: Trace edema. LABORATORY DATA: White blood cell count 5.6, hemoglobin 9.4, hematocrit 28.3, platelet count 96. A pH 7.42, pCO2 of 42, pO2 of 88, that is on SIMV rate 12, tidal volume 500, PEEP 10, pressure support 10, FiO2 of 45%. Sodium 147, potassium 5.4, chloride 113, CO2 of 26, BUN 56, creatinine 1.2, glucose 196. His x-ray is about the same. ASSESSMENT: 1. Acute respiratory failure requiring mechanical ventilation. 2. Influenza type B. 3. Pneumonia. 4. Left upper lobe collapse, that was improved after bronchoscopy two days ago. 5. Hyperkalemia. 6. Hypernatremia. 7. Slightly improved thrombocytopenia. 8. Hyperglycemia, probably aggravated by steroids. PLAN: 1. Begin weaning FiO2. 2. Continue antibiotics. 3. Continue enteral tube feeds. 4. Add free water. 5. Continue NPH insulin, but increase the dose given persistent hyperglycemia. 6. I still think he is several days away from potentially being extubated. Job ID: [id number]
[2018-08-26] MEDS: NPH, Human Insulin Isophane 300 UNIT/3 ML VIAL SC SCH ×2 (10:07→20:29)
--- NOTE | 2018-08-26 17:37 | PDOC.PN ---
- Subjective Encounter Start Date: 08/26/18 Encounter Start Time: 10:20 Pt seen for followup re; acute hypoxic respiratory failure. - Objective Resuscitation Status - Order Detail: 08/18/18 23:37 Resuscitation Status Routine Resuscitation Status: FULL: Full Resuscitation MAR Reviewed: Yes Vital Signs & Weight: Vital Signs (12 hours) Pulse Resp BP 08/26/18 15:49 76 170/74 H 08/26/18 13:40 70 170/83 H 08/26/18 10:56 72 144/66 H 08/26/18 08:26 71 135/67 08/26/18 06:00 12 Weight Admit Weight 205 lb 8 oz Weight 218 lb 7 oz Most Recent Monitor Data Heart Rate from ECG 73 NIBP 140/63 NIBP BP-Mean 88 Respiration from ECG 10 SpO2 99 I&O: 08/25/18 08/26/18 08/27/18 06:59 06:59 06:59 Intake Total 2447 1799.5 100 Output Total 3165 2255 Balance -718 -455.5 100 Result Diagrams: 08/26/18 04:15 08/26/18 04:15 Additional Labs: Accuchecks 08/26/18 08/26/18 08/26/18 16:10 10:16 04:12 POC Glucose 216 H 160 H 201 H 08/25/18 08/25/18 22:44 17:59 POC Glucose 210 H 224 H EKG Reviewed by me: Yes (Tele: V-paced) Phys Exam - Physical Examination Intubated HEENT: moist MMs endotracheal tube Respiratory: clear to auscultation bilateral Cardiovascular: RRR Gastrointestinal: soft Deviation from normal: Unable to assess Dx/Plan (1) Acute respiratory failure with hypoxia Code(s): J96.01 - ACUTE RESPIRATORY FAILURE WITH HYPOXIA Status: Acute Comment: Intubated, mechanically ventilated (2) Pneumonia Code(s): J18.9 - PNEUMONIA, UNSPECIFIED ORGANISM Status: Acute Qualifiers: Laterality: left Lung location: upper lobe of lung Comment: levofloxacin and cefepime (3) Acute worsening of stage 3 chronic kidney disease Code(s): N18.3 - CHRONIC KIDNEY DISEASE, STAGE 3 (MODERATE) Status: Acute Comment: creatinine improved to 1.28 today (4) Influenza B Code(s): J10.1 - FLU DUE TO OTH IDENT INFLUENZA VIRUS W OTH RESP MANIFEST Status: Acute Comment: treated with Tamiflu (5) Dyslipidemia Code(s): E78.5 - HYPERLIPIDEMIA, UNSPECIFIED Status: Chronic Comment: on statin (6) HTN (hypertension) Code(s): I10 - ESSENTIAL (PRIMARY) HYPERTENSION Status: Chronic Qualifiers: Comment: controlled (7) Chronic diastolic heart failure Code(s): I50.32 - CHRONIC DIASTOLIC (CONGESTIVE) HEART FAILURE Status: Chronic Comment: stable (8) Sepsis Code(s): A41.9 - SEPSIS, UNSPECIFIED ORGANISM Status: Resolved - Plan * . Review of Systems - Medications/Allergies Allergies/Adverse Reactions: Allergies Allergy/AdvReac Type Severity Reaction Status Date / Time Penicillins Allergy dyspnea Verified 09/13/17 21:11 zolpidem [From Ambien] Allergy "very Verified 09/13/17 21:11 loopy" Medications: Current Medications Acetaminophen (Tylenol) 650 mg PO Q4H PRN PRN Reason: Headache/Fever/Mild Pain (1-3) Acetaminophen (Tylenol) 650 mg [place] Q4H PRN PRN Reason: Headache/Fever/Mild Pain (1-3) Aspirin (Ecotrin) 81 mg PO DAILY [facility] Last Admin: 08/26/18 08:49 Dose: 81 mg Atorvastatin Calcium (Lipitor) 20 mg PO DAILY [facility] Last Admin: 08/26/18 08:49 Dose: 20 mg Bisacodyl (Dulcolax) 10 mg PO DAILYPRN PRN PRN Reason: Constipation Calcitriol (Rocaltrol) 0.25 mcg PO DAILY [facility] Last Admin: 08/26/18 08:49 Dose: 0.25 mcg Carvedilol (Coreg) 25 mg PO BID [facility] Last Admin: 08/26/18 08:50 Dose: 25 mg Cyanocobalamin (Vitamin B-12) 500 mcg PO BID [facility] Last Admin: 08/26/18 09:01 Dose: 500 mcg Cyclosporine (Restasis) 0 ml EA EYE BID [facility] Last Admin: 08/26/18 08:54 Dose: 0.4 ml Dextrose/Water (Dextrose 50%) 25 gm SLOW IVP PRN PRN PRN Reason: Hypoglycemia Famotidine (Pepcid) 20 mg SLOW IVP BID [facility] Famotidine (Pepcid) 20 mg PO BID [facility] Fish Oil (Fish Oil) 1,000 mg PO DAILY [facility] Last Admin: 08/26/18 08:51 Dose: 1,000 mg Gabapentin (Neurontin) 600 mg PO BID [facility] Last Admin: 08/26/18 08:51 Dose: 600 mg Glucagon (Glucagon) 1 mg IM PRN PRN PRN Reason: Hypoglycemia Guaifenesin/Dextromethorphan (Robitussin Dm) 15 ml PO Q4H PRN PRN Reason: Cough Hydralazine HCl (Apresoline) 10 mg SLOW IVP Q4H PRN PRN Reason: BP >160/100 Last Admin: 08/25/18 23:20 Dose: 10 mg Fentanyl Citrate 2,000 mcg/ (Sodium Chloride) 100 mls @ 0 mls/hr IV INF [facility]; Protocol Stop: 09/19/18 18:34 Last Admin: 08/25/18 22:16 Dose: 100 mls Fentanyl Citrate (Fentanyl Bolus) 250 mls @ 0 mls/hr IVPB PRN PRN PRN Reason: Breakthrough pain/agitation Stop: 09/19/18 18:34 Cefepime HCl 1 gm/ Sodium (Chloride) 100 mls @ 200 mls/hr IVPB Q12HR [facility] Last Admin: 08/26/18 08:50 Dose: 100 mls Levofloxacin 750 mg/ Device 150 mls @ 100 mls/hr IVPB Q2D@1800 [facility] Last Admin: 08/24/18 17:00 Dose: 150 mls Dextrose/Water (D5w) 1,000 mls @ 0 mls/hr IV .Q0M PRN PRN Reason: Hypoglycemia Insulin Human NPH (Humulin N) 45 unit SC Q12HR [facility] Last Admin: 08/26/18 10:07 Dose: 45 unit Insulin Human Regular (Humulin R) 0 units SC .AGGRESSIVE SLIDING PRN PRN Reason: Aggressive Sliding Scale Last Admin: 08/26/18 16:10 Dose: 6 unit Iron/Minerals/Multivitamins (Theragran M) 1 tab PO DAILY [facility] Last Admin: 08/26/18 08:52 Dose: 1 tab Lorazepam (Ativan) 2 mg SLOW IVP Q1H PRN PRN Reason: Breakthrough agitation Stop: 09/19/18 18:34 Magnesium Oxide (Magnesium Oxide) 500 mg PO DAILY [facility] Last Admin: 08/26/18 08:51 Dose: 500 mg Methylprednisolone Sodium Succinate (Solu-Medrol) 20 mg IVP BID [facility] Last Admin: 08/26/18 08:52 Dose: 20 mg Miscellaneous Medication (Pharmacy To Dose) 1 each IVPB PRN PRN PRN Reason: Pharmacy to dose Miscellaneous Medication (Ventilator Sedation Protocol) 1 each FS ONE [facility] Stop: 09/19/18 18:01 Morphine Sulfate (Morphine) 2 mg SLOW IVP Q1H PRN PRN Reason: BREAKTHROUGH PAIN/Agitation Stop: 09/19/18 18:34 Discontinue Previous Narcotic Pain Medications And Benzodiazepines 1 each FS .ONE [facility] Stop: 09/19/18 18:34 Ondansetron HCl (Zofran Odt) 4 mg PO Q6H PRN PRN Reason: Nausea/Vomiting Ondansetron HCl (Zofran) 4 mg IVP Q6H PRN PRN Reason: Nausea/Vomiting Propofol (Diprivan) 1,000 mg IV INF PRN; Protocol PRN Reason: TO ACHIEVE GOAL RASS Stop: 09/19/18 18:34 Last Admin: 08/26/18 13:11 Dose: 1,000 mg Propofol (Diprivan Bolus) 20 mg IV Q5MIN PRN PRN Reason: BREAKTHROUGH AGITATION Stop: 09/19/18 18:34 Last Admin: 08/21/18 20:30 Dose: 20 mg Senna/Docusate Sodium (Senokot S) 2 tab PO BID PRN PRN Reason: Constipation Sodium Chloride (Flush - Normal Saline) 10 ml IVF Q12HR [facility] Last Admin: 08/26/18 08:53 Dose: 10 ml Sodium Chloride (Flush - Normal Saline) 10 ml IVF PRN PRN PRN Reason: Saline Flush Tamsulosin HCl (Flomax) 0.4 mg PO DAILY [facility] Last Admin: 08/26/18 08:53 Dose: 0.4 mg
[2018-08-27 04:53] LABS: Hemoglobin 9.6 g/dL (14.0-18.0); Mean Corpuscular HGB CONC 32.1 g/dL (32.0-36.0); Mean Corpuscular Hemoglobin 32.3 pg (27.0-31.0); Platelet Count 87 thou/uL (130-400); RBC Distribution Width 15.1 % (11.5-14.5); Red Blood Cell (RBC) Count 2.99 mill/uL (4.70-6.10); White Blood Cell (WBC) Count 5.3 thou/uL (4.8-10.8)
[2018-08-27 05:08] LABS: Anion Gap 11 mmol/L (10-20); BUN (Urea Nitrogen) 59 mg/dL (8.4-25.7); Calc. Creatinine Clearance 69 mL/min (70-130); Calcium 8.9 mg/dL (7.8-10.44); Carbon Dioxide 30 mmol/L (23-31); Chloride 112 mmol/L (98-107); Estimated GFR-MDRD 61; Glucose 181 mg/dL (83-110); Potassium 5.4 mmol/L (3.5-5.1); Sodium 148 mmol/L (136-145)
[2018-08-27 05:19] LABS: Band 14 % (5-11); Eosinophils 1 % (0-10); Lymphocytes 10 % (21-51); MDiff Complete? YES; Monocytes 13 % (0-10); Neutrophil 62 % (42-75); Platelet Morphology Comment Appears Decreased
[2018-08-27 07:08] LABS: Actual Bicarbonate (HCO3a) 28.2 mEq/L (22-28); Base Excess (BEa) 2.9 mEq/L (-2.0 to +3.0); CO2 Tension 46.7 mmHg (35.0-45.0); Calcium, Ionized 1.24 mmol/L (1.12-1.30); Carboxyhemoglobin (COHb) 1.7 gm% (0.0-3.0); Hemoglobin (Hb) 10.2 g/dL (14.0-18.0); O2 Tension (PaO2) 69.8 mmHg (> 60.0)
[2018-08-27 07:12] LABS: ALV-art Gradient 121.375 (0-20); Puncture Site RB
--- NOTE | 2018-08-27 08:20 | RAD ---
PORTABLE CHEST: 08/27/2018 PROVIDED CLINICAL HISTORY: Respiratory insufficiency. COMPARISON: 08/26/2018 FINDINGS: When accounting for differences in rotation, significant interval change with respect to the prior ex amination is not apparent. IMPRESSION: As above. POS: OFF
[2018-08-27] MEDS: cycloSPORINE 0.05% Ophthalmic Droperette EA EYE SCH ×2 (09:00→20:22)
--- NOTE | 2018-08-27 09:22 | PRG ---
DATE OF SERVICE: 08/27/2018 PULMONARY/CRITICAL CARE PROGRESS NOTE TIME SPENT: 35 minutes critical time. SUBJECTIVE: The patient remains intubated on mechanical ventilation. He will actually wake up and open his eyes now. OBJECTIVE: VITAL SIGNS: On exam, his temperature is 98.1, pulse 73, blood pressure 136/75. He is requiring no vasopressors. Intake for 24 hours 1494, output 2700. Weight 216 pounds. HEENT: Unremarkable. NECK: No JVD. CHEST: Fairly clear. CARDIAC: S1 and S2, regular. ABDOMEN: Soft. EXTREMITIES: Edematous. LABORATORY DATA: White blood cell count 5.3, hematocrit 30, platelet count 87. PH 7.40, pCO2 of 46, PO2 of 69, that is on SIMV rate 12, tidal volume 500, PEEP 10, pressure support 10, FiO2 of 35%. Sodium 148, potassium 5.4, chloride 112, CO2 of 30, BUN 59, creatinine 1.1, glucose 181. ASSESSMENT: 1. Acute respiratory failure secondary to pneumonia. 2. Influenza, type B. 3. Left upper lobe collapse, improved after bronchoscopy. 4. Hyperkalemia and hypernatremia. 5. Thrombocytopenia. 6. Hyperglycemia. PLAN: Increase free water and tube feeds. Not ready for weaning yet. Need to try to get him up in the chair as tolerated with ventilator. Job ID: [id number]
[2018-08-27] MEDS: Cefepime 1 GM in Sodium Chloride 0.9% 100 ML IVPB SCH ×2 (09:23→20:20)
[2018-08-27] MEDS: Carvedilol 25 MG TAB PO SCH ×2 (09:23→20:20)
[2018-08-27] MEDS: Calcitriol 0.25 MCG CAP PO SCH (09:23)
[2018-08-27] MEDS: Aspirin 81 mg Enteric Coated Tablet PO SCH (09:23)
[2018-08-27] MEDS: Tamsulosin HCl 0.4 MG CAP PO SCH (09:24)
[2018-08-27] MEDS: Famotidine/PF 20 mg/2ml Vial SLOW IVP SCH ×2 (09:24→20:21)
[2018-08-27] MEDS: Multivitamin W/ Minerals 1 TAB PO SCH (09:24)
[2018-08-27] MEDS: Gabapentin 300 MG CAP PO SCH ×2 (09:24→20:20)
[2018-08-27] MEDS: Famotidine 20 MG TAB PO SCH ×2 (09:25→20:21)
[2018-08-27] MEDS: Propofol 1,000 MG/100 ML VIAL IV PRN ×2 (09:26→23:48)
[2018-08-27] MEDS: Magnesium Oxide 250 MG TAB PO SCH (09:26)
[2018-08-27] MEDS: Fish Oil 1,000 MG CAP PO SCH (09:26)
[2018-08-27] MEDS: NPH, Human Insulin Isophane 300 UNIT/3 ML VIAL SC SCH ×2 (09:28→20:21)
[2018-08-27] MEDS: Insulin Regular 300 UNITS/3 ML VIAL SC PRN (09:29)
[2018-08-27] MEDS: Cyanocobalamin (Vitamin B-12) 1,000 MCG TAB PO SCH ×2 (10:00→20:20)
--- NOTE | 2018-08-27 12:44 | PDOC.PN ---
- Subjective Encounter Start Date: 08/27/18 Encounter Start Time: 12:42 Subjective: remains intubated,sedative. -: Rn reports few runs of NSVT as well - Objective Resuscitation Status - Order Detail: 08/18/18 23:37 Resuscitation Status Routine Resuscitation Status: FULL: Full Resuscitation MAR Reviewed: Yes Vital Signs & Weight: Vital Signs (12 hours) Temp Pulse Resp BP 08/27/18 10:38 72 169/79 H 08/27/18 10:00 12 08/27/18 08:05 71 162/91 H 08/27/18 08:00 98.7 F 14 08/27/18 06:00 12 08/27/18 04:00 98.1 F 12 08/27/18 02:22 66 08/27/18 02:00 12 Weight Admit Weight 205 lb 8 oz Weight 216 lb 11.2 oz Most Recent Monitor Data Heart Rate from ECG 71 NIBP 156/69 NIBP BP-Mean 98 Respiration from ECG 12 SpO2 100 I&O: 08/26/18 08/27/18 08/28/18 06:59 06:59 06:59 Intake Total 1799.5 1494.8 300 Output Total 2255 2700 530 Balance -455.5 -1205.2 -230 Result Diagrams: 08/27/18 04:09 08/27/18 04:09 Additional Labs: Accuchecks 08/27/18 08/27/18 08/26/18 11:39 04:09 22:11 POC Glucose 155 H 174 H 209 H 08/26/18 16:10 POC Glucose 216 H Microbiology 08/20/18 17:55 Bronchial Washing - Aqueous Fluid Respiratory Culture - Final 08/18/18 19:15 Urine voided Urine Culture - Final NO GROWTH AT 48 HOURS 08/18/18 19:01 Nasal swab Influenza Types A,B Direct EIA - Final 08/18/18 18:32 Venous blood - Right Hand Blood Culture - Final NO GROWTH IN 5 DAYS 08/18/18 18:03 Venous blood - Right Hand Blood Culture - Final NO GROWTH IN 5 DAYS 08/24/18 08:25 Bronchial Washing Respiratory Culture - Preliminary Laboratory Tests 08/18/18 08/18/18 08/20/18 17:19 17:19 09:42 WBC Plt Count 113 L Sodium Creatinine 2.61 H 2.17 H 08/21/18 08/22/1808/22/19 05:29 04:24 04:24 WBC 2.5 L Plt Count 104 L Sodium Creatinine 1.69 H 08/23/18 08/23/18 08/24/18 04:34 04:34 04:23 WBC 4.4 L Plt Count Sodium 145 144 Creatinine 1.86 H 08/25/18 08/26/18 08/26/18 03:30 04:15 04:15 WBC 5.6 Plt Count Sodium 146 H 147 H Creatinine 1.32 H 1.28 08/27/18 08/27/18 04:09 04:09 WBC 5.3 Plt Count 87 L Sodium 148 H Creatinine 1.15 Phys Exam - Physical Examination Constitutional: NAD intubated HEENT: moist MMs, sclera anicteric ETT Neck: no JVD coarse b/l and reduced at bases Cardiovascular: RRR, no significant murmur Gastrointestinal: soft, no distention, positive bowel sounds Musculoskeletal: no edema, pulses present sedated Dx/Plan (1) Acute respiratory failure with hypoxia Code(s): J96.01 - ACUTE RESPIRATORY FAILURE WITH HYPOXIA Status: Acute Comment: Intubated, mechanically ventilated (2) Pneumonia Code(s): J18.9 - PNEUMONIA, UNSPECIFIED ORGANISM Status: Acute Qualifiers: Laterality: left Lung location: upper lobe of lung Comment: levofloxacin and cefepime (3) Influenza B Code(s): J10.1 - FLU DUE TO OTH IDENT INFLUENZA VIRUS W OTH RESP MANIFEST Status: Acute Comment: treated with Tamiflu (4) Hypernatremia Code(s): E87.0 - HYPEROSMOLALITY AND HYPERNATREMIA Status: Acute Comment: increase free water per dobhoff. monitor (5) Thrombocytopenia Code(s): D69.6 - THROMBOCYTOPENIA, UNSPECIFIED Status: Acute (6) Chronic diastolic heart failure Code(s): I50.32 - CHRONIC DIASTOLIC (CONGESTIVE) HEART FAILURE Status: Chronic Comment: stable (7) Sepsis Code(s): A41.9 - SEPSIS, UNSPECIFIED ORGANISM Status: Resolved (8) CAD (coronary artery disease) Code(s): I25.10 - ATHSCL HEART DISEASE OF [place] CORONARY ARTERY W/O ANG PCTRS Status: Chronic Qualifiers: (9) Dyslipidemia Code(s): E78.5 - HYPERLIPIDEMIA, UNSPECIFIED Status: Chronic Comment: on statin (10) HTN (hypertension) Code(s): I10 - ESSENTIAL (PRIMARY) HYPERTENSION Status: Chronic Qualifiers: Comment: controlled - Plan calvert catheter, continue antibiotics, PT/OT, respiratory therapy, DVT proph w/ SCDs cont supportive care.Vent management .IB ABx * . Review of Systems - Review of Systems Other: can not be obtained due to sedation/intubation - Medications/Allergies Allergies/Adverse Reactions: Allergies Allergy/AdvReac Type Severity Reaction Status Date / Time Penicillins Allergy dyspnea Verified 09/13/17 21:11 zolpidem [From Ambien] Allergy "very Verified 09/13/17 21:11 loopy" Medications: Current Medications Acetaminophen (Tylenol) 650 mg PO Q4H PRN PRN Reason: Headache/Fever/Mild Pain (1-3) Acetaminophen (Tylenol) 650 mg [place] Q4H PRN PRN Reason: Headache/Fever/Mild Pain (1-3) Aspirin (Ecotrin) 81 mg PO DAILY [facility] Last Admin: 08/27/18 09:23 Dose: 81 mg Bisacodyl (Dulcolax) 10 mg PO DAILYPRN PRN PRN Reason: Constipation Calcitriol (Rocaltrol) 0.25 mcg PO DAILY [facility] Last Admin: 08/27/18 09:23 Dose: 0.25 mcg Carvedilol (Coreg) 25 mg PO BID [facility] Last Admin: 08/27/18 09:23 Dose: 25 mg Cyanocobalamin (Vitamin B-12) 500 mcg PO BID [facility] Last Admin: 08/27/18 10:00 Dose: 500 mcg Cyclosporine (Restasis) 0 ml EA EYE BID [facility] Last Admin: 08/27/18 09:00 Dose: 1 ml Dextrose/Water (Dextrose 50%) 25 gm SLOW IVP PRN PRN PRN Reason: Hypoglycemia Famotidine (Pepcid) 20 mg SLOW IVP BID [facility] Last Admin: 08/27/18 09:24 Dose: 20 mg Famotidine (Pepcid) 20 mg PO BID [facility] Last Admin: 08/27/18 09:25 Dose: Not Given Fish Oil (Fish Oil) 1,000 mg PO DAILY [facility] Last Admin: 08/27/18 09:26 Dose: 1,000 mg Gabapentin (Neurontin) 600 mg PO BID [facility] Last Admin: 08/27/18 09:24 Dose: 600 mg Glucagon (Glucagon) 1 mg IM PRN PRN PRN Reason: Hypoglycemia Guaifenesin/Dextromethorphan (Robitussin Dm) 15 ml PO Q4H PRN PRN Reason: Cough Hydralazine HCl (Apresoline) 10 mg SLOW IVP Q4H PRN PRN Reason: BP >160/100 Last Admin: 08/25/18 23:20 Dose: 10 mg Fentanyl Citrate 2,000 mcg/ (Sodium Chloride) 100 mls @ 0 mls/hr IV INF [facility]; Protocol Stop: 09/19/18 18:34 Last Admin: 08/25/18 22:16 Dose: 100 mls Fentanyl Citrate (Fentanyl Bolus) 250 mls @ 0 mls/hr IVPB PRN PRN PRN Reason: Breakthrough pain/agitation Stop: 09/19/18 18:34 Cefepime HCl 1 gm/ Sodium (Chloride) 100 mls @ 200 mls/hr IVPB Q12HR [facility] Last Admin: 08/27/18 09:23 Dose: 100 mls Dextrose/Water (D5w) 1,000 mls @ 0 mls/hr IV .Q0M PRN PRN Reason: Hypoglycemia Insulin Human NPH (Humulin N) 45 unit SC Q12HR [facility] Last Admin: 08/27/18 09:28 Dose: 45 unit Insulin Human Regular (Humulin R) 0 units SC .AGGRESSIVE SLIDING PRN PRN Reason: Aggressive Sliding Scale Last Admin: 08/27/18 09:29 Dose: 3 unit Iron/Minerals/Multivitamins (Theragran M) 1 tab PO DAILY [facility] Last Admin: 08/27/18 09:24 Dose: 1 tab Lorazepam (Ativan) 2 mg SLOW IVP Q1H PRN PRN Reason: Breakthrough agitation Stop: 09/19/18 18:34 Magnesium Oxide (Magnesium Oxide) 500 mg PO DAILY [facility] Last Admin: 08/27/18 09:26 Dose: 500 mg Methylprednisolone Sodium Succinate (Solu-Medrol) 20 mg IVP BID [facility] Last Admin: 08/27/18 09:25 Dose: 20 mg Miscellaneous Medication (Pharmacy To Dose) 1 each IVPB PRN PRN PRN Reason: Pharmacy to dose Miscellaneous Medication (Ventilator Sedation Protocol) 1 each FS ONE [facility] Stop: 09/19/18 18:01 Morphine Sulfate (Morphine) 2 mg SLOW IVP Q1H PRN PRN Reason: BREAKTHROUGH PAIN/Agitation Stop: 09/19/18 18:34 Discontinue Previous Narcotic Pain Medications And Benzodiazepines 1 each FS .ONE [facility] Stop: 09/19/18 18:34 Ondansetron HCl (Zofran Odt) 4 mg PO Q6H PRN PRN Reason: Nausea/Vomiting Ondansetron HCl (Zofran) 4 mg IVP Q6H PRN PRN Reason: Nausea/Vomiting Propofol (Diprivan) 1,000 mg IV INF PRN; Protocol PRN Reason: TO ACHIEVE GOAL RASS Stop: 09/19/18 18:34 Last Admin: 08/27/18 09:26 Dose: 1,000 mg Propofol (Diprivan Bolus) 20 mg IV Q5MIN PRN PRN Reason: BREAKTHROUGH AGITATION Stop: 09/19/18 18:34 Last Admin: 08/21/18 20:30 Dose: 20 mg Senna/Docusate Sodium (Senokot S) 2 tab PO BID PRN PRN Reason: Constipation Sodium Chloride (Flush - Normal Saline) 10 ml IVF Q12HR [facility] Last Admin: 08/27/18 09:27 Dose: 10 ml Sodium Chloride (Flush - Normal Saline) 10 ml IVF PRN PRN PRN Reason: Saline Flush Tamsulosin HCl (Flomax) 0.4 mg PO DAILY [facility] Last Admin: 08/27/18 09:24 Dose: 0.4 mg
--- NOTE | 2018-08-27 18:47 | PRG ---
DATE OF SERVICE: 08/27/2018 SUBJECTIVE: The patient is seen and examined. Noted with the following vital signs. OBJECTIVE: VITAL SIGNS: Afebrile, temperature 98.7, pulse 72, respiratory rate of 14, blood pressure 162/91. HEENT: Unremarkable. Moist oral mucosa. NECK: Supple. No conjunctival injection or icterus. CARDIOVASCULAR SYSTEM: First and second heart sounds are heard. RESPIRATORY SYSTEM: Clear to auscultation. DIGESTIVE SYSTEM: Benign abdomen with positive bowel sounds. EXTREMITIES: No peripheral edema. SKIN: No new gross rash. LYMPHATICS: No peripheral lymphadenopathy. IMPRESSION: 1. improved. 2. Hyperkalemia. PLAN: 1. We will continue current renal supportive measures. 2. Further management will be dependent on the clinical course. Job ID: [id number]
[2018-08-28 04:59] LABS: Anion Gap 14 mmol/L (10-20); BUN (Urea Nitrogen) 64 mg/dL (8.4-25.7); Calc. Creatinine Clearance 67 mL/min (70-130); Calcium 9.3 mg/dL (7.8-10.44); Carbon Dioxide 26 mmol/L (23-31); Chloride 111 mmol/L (98-107); Estimated GFR-MDRD 59; Glucose 160 mg/dL (83-110); Potassium 5.5 mmol/L (3.5-5.1); Sodium 145 mmol/L (136-145)
[2018-08-28 05:25] LABS: Band 11 % (5-11); Hemoglobin 9.5 g/dL (14.0-18.0); Lymphocytes 9 % (21-51); MDiff Complete? YES; Mean Corpuscular Hemoglobin 31.7 pg (27.0-31.0); Mean Corpuscular Volume 99.2 fL (78.0-98.0); Mean Platelet Volume 8.7 fL (7.4-10.4); Metamyelocyte 2 % (0-0); Monocytes 8 % (0-10); Myelocyte 1 % (0-0); Neutrophil 68 % (42-75); Platelet Count 80 thou/uL (130-400); Platelet Morphology Comment Appears Decreased; Polychromasia SLIGHT = 2-3 cells (100X) (0-2/hpf); RBC Distribution Width 15.1 % (11.5-14.5); Reactive Lymphocytes 1 % (0-10); Red Blood Cell (RBC) Count 2.99 mill/uL (4.70-6.10); White Blood Cell (WBC) Count 5.2 thou/uL (4.8-10.8)
[2018-08-28 07:31] LABS: Actual Bicarbonate (HCO3a) 27.8 mEq/L (22-28); Base Excess (BEa) 2.9 mEq/L (-2.0 to +3.0); CO2 Tension 43.7 mmHg (35.0-45.0); Calcium, Ionized 1.27 mmol/L (1.12-1.30); Carboxyhemoglobin (COHb) 1.1 gm% (0.0-3.0); Hemoglobin (Hb) 10.7 g/dL (14.0-18.0); O2 Tension (PaO2) 95.6 mmHg (> 60.0); Potassium - ABG Lab 4.91 mmol/L (3.70-5.30); pH, Arterial 7.42 (7.35-7.45)
[2018-08-28 07:32] LABS: ALV-art Gradient 99.325 (0-20); Puncture Site RRA
--- NOTE | 2018-08-28 08:08 | RAD ---
PORTABLE CHEST: Date: 08/28/18 PROVIDED CLINICAL HISTORY: Respiratory insufficiency. FINDINGS: Comparison with 08/27/18. Significant interval change with respect to the prior examination is not apparent. IMPRESSION: As above. POS: MASHA
[2018-08-28] MEDS: Famotidine/PF 20 mg/2ml Vial SLOW IVP SCH ×2 (08:53→20:40)
[2018-08-28] MEDS: Famotidine 20 MG TAB PO SCH ×2 (08:53→20:41)
[2018-08-28] MEDS: Aspirin 81 mg Enteric Coated Tablet PO SCH (08:53)
[2018-08-28] MEDS: Multivitamin W/ Minerals 1 TAB PO SCH (08:54)
[2018-08-28] MEDS: Tamsulosin HCl 0.4 MG CAP PO SCH (08:54)
[2018-08-28] MEDS: Gabapentin 300 MG CAP PO SCH ×2 (08:54→20:40)
[2018-08-28] MEDS: Cefepime 1 GM in Sodium Chloride 0.9% 100 ML IVPB SCH ×2 (08:54→20:39)
[2018-08-28] MEDS: Carvedilol 25 MG TAB PO SCH ×2 (08:54→20:40)
[2018-08-28] MEDS: Fish Oil 1,000 MG CAP PO SCH (08:54)
[2018-08-28] MEDS: Calcitriol 0.25 MCG CAP PO SCH (08:54)
[2018-08-28] MEDS: cycloSPORINE 0.05% Ophthalmic Droperette EA EYE SCH ×2 (08:55→20:41)
[2018-08-28] MEDS: Cyanocobalamin (Vitamin B-12) 1,000 MCG TAB PO SCH ×2 (08:55→20:40)
[2018-08-28] MEDS: NPH, Human Insulin Isophane 300 UNIT/3 ML VIAL SC SCH ×2 (09:08→20:40)
[2018-08-28] MEDS: Magnesium Oxide 250 MG TAB PO SCH (09:28)
[2018-08-28] MEDS: hydrALAZINE 20 MG/ML VIAL SLOW IVP PRN (11:12)
[2018-08-28] MEDS ORDERED: cloNIDine 0.1 MG TAB PO PRN (13:23)
[2018-08-28] MEDS ORDERED: NIFEdipine XL 30 MG TAB PO SCH (13:30)
[2018-08-28] MEDS ORDERED: Losartan 25 MG TAB PO SCH (14:45)
[2018-08-28] MEDS ORDERED: Amlodipine 10 MG TAB PO SCH (14:45)
--- NOTE | 2018-08-28 14:45 | PDOC.PN ---
- Subjective Encounter Start Date: 08/28/18 Encounter Start Time: 14:44 Subjective: off of sedation an dwaking up.opens eyes but falls back asleep - Objective Resuscitation Status - Order Detail: 08/18/18 23:37 Resuscitation Status Routine Resuscitation Status: FULL: Full Resuscitation MAR Reviewed: Yes Vital Signs & Weight: Vital Signs (12 hours) Temp Pulse Resp BP Pulse Ox 08/28/18 14:37 75 08/28/18 12:58 72 143/63 H 08/28/18 12:00 99.4 F 15 08/28/18 11:12 70 191/91 H 08/28/18 10:57 72 08/28/18 10:00 15 08/28/18 08:00 16 100 08/28/18 07:59 70 171/81 H 08/28/18 06:00 22 H 08/28/18 04:00 98.2 F 17 Weight Admit Weight 205 lb 8 oz Weight 214 lb 1.6 oz Most Recent Monitor Data Heart Rate from ECG 74 NIBP 135/67 NIBP BP-Mean 89 Respiration from ECG 17 SpO2 100 I&O: 08/27/18 08/28/18 08/29/18 06:59 06:59 06:59 Intake Total 1494.8 1591.7 370 Output Total 2700 2380 900 Balance -1205.2 -788.3 -530 Result Diagrams: 08/28/18 04:30 08/28/18 04:30 Additional Labs: Accuchecks 08/28/18 08/28/18 08/27/18 08:11 04:19 22:17 POC Glucose 146 H 161 H 161 H 08/27/18 15:58 POC Glucose 130 H Microbiology 08/24/18 08:25 Bronchial Washing Respiratory Culture - Final 08/20/18 17:55 Bronchial Washing - Aqueous Fluid Respiratory Culture - Final 08/18/18 19:15 Urine voided Urine Culture - Final NO GROWTH AT 48 HOURS 08/18/18 19:01 Nasal swab Influenza Types A,B Direct EIA - Final 08/18/18 18:32 Venous blood - Right Hand Blood Culture - Final NO GROWTH IN 5 DAYS 08/18/18 18:03 Venous blood - Right Hand Blood Culture - Final NO GROWTH IN 5 DAYS Laboratory Tests 08/18/18 08/21/18 08/24/18 17:19 05:29 04:23 Plt Count 113 L 104 L Sodium 144 Potassium Creatinine 1.62 H 08/25/18 08/26/18 08/26/18 03:30 04:15 04:15 Plt Count 96 L Sodium 146 H 147 H Potassium 5.4 H Creatinine 1.32 H 1.28 08/27/18 08/27/18 08/28/18 04:09 04:09 04:30 Plt Count 87 L Sodium 148 H 145 Potassium 5.4 H 5.5 H Creatinine 1.15 1.19 08/28/18 04:30 Plt Count 80 L Sodium Potassium Creatinine Phys Exam - Physical Examination Constitutional: NAD opens eyes on verbal stimuli HEENT: PERRLA, moist MMs, sclera anicteric, oral pharynx no lesions ETT Respiratory: no wheezing, no rales, no rhonchi, clear to auscultation bilateral Cardiovascular: RRR, no significant murmur Gastrointestinal: soft, no distention, positive bowel sounds Musculoskeletal: no edema, pulses present sedated Dx/Plan (1) Acute respiratory failure with hypoxia Code(s): J96.01 - ACUTE RESPIRATORY FAILURE WITH HYPOXIA Status: Acute Comment: Intubated, mechanically ventilated (2) Pneumonia Code(s): J18.9 - PNEUMONIA, UNSPECIFIED ORGANISM Status: Acute Qualifiers: Laterality: left Lung location: upper lobe of lung Comment: levofloxacin and cefepime (3) Influenza B Code(s): J10.1 - FLU DUE TO OTH IDENT INFLUENZA VIRUS W OTH RESP MANIFEST Status: Acute Comment: treated with Tamiflu (4) Hypernatremia Code(s): E87.0 - HYPEROSMOLALITY AND HYPERNATREMIA Status: Acute Comment: increase free water per dobhoff. monitor.improving (5) Thrombocytopenia Code(s): D69.6 - THROMBOCYTOPENIA, UNSPECIFIED Status: Acute (6) Chronic diastolic heart failure Code(s): I50.32 - CHRONIC DIASTOLIC (CONGESTIVE) HEART FAILURE Status: Chronic Comment: stable (7) Sepsis Code(s): A41.9 - SEPSIS, UNSPECIFIED ORGANISM Status: Resolved (8) CAD (coronary artery disease) Code(s): I25.10 - ATHSCL HEART DISEASE OF [place] CORONARY ARTERY W/O ANG PCTRS Status: Chronic Qualifiers: (9) Dyslipidemia Code(s): E78.5 - HYPERLIPIDEMIA, UNSPECIFIED Status: Chronic Comment: on statin (10) HTN (hypertension) Code(s): I10 - ESSENTIAL (PRIMARY) HYPERTENSION Status: Chronic Qualifiers: Comment: controlled - Plan continue antibiotics, PT/OT, respiratory therapy, incentive spirometry, DVT proph w/SCDs cont supportive care -: restart home meds,including Losartan -: add norvasc .BP better controlled w prm anti hypertensives -: Vent weaning as tolerated,then rehab assesment -: am labs.sodium better. potassium still high but remnal Fx improved * . Review of Systems - Review of Systems Other: can not be obtained due to intubated state & somnolence - Medications/Allergies Allergies/Adverse Reactions: Allergies Allergy/AdvReac Type Severity Reaction Status Date / Time Penicillins Allergy dyspnea Verified 09/13/17 21:11 zolpidem [From Ambien] Allergy "very Verified 09/13/17 21:11 loopy" Medications: Current Medications Acetaminophen (Tylenol) 650 mg PO Q4H PRN PRN Reason: Headache/Fever/Mild Pain (1-3) Acetaminophen (Tylenol) 650 mg NE Q4H PRN PRN Reason: Headache/Fever/Mild Pain (1-3) Amlodipine Besylate (Norvasc) 10 mg PO ONE [facility] Amlodipine Besylate (Norvasc) 10 mg PO DAILY [facility] Aspirin (Ecotrin) 81 mg PO DAILY [facility] Last Admin: 08/28/18 08:53 Dose: 81 mg Bisacodyl (Dulcolax) 10 mg PO DAILYPRN PRN PRN Reason: Constipation Calcitriol (Rocaltrol) 0.25 mcg PO DAILY [facility] Last Admin: 08/28/18 08:54 Dose: 0.25 mcg Carvedilol (Coreg) 25 mg PO BID [facility] Last Admin: 08/28/18 08:54 Dose: 25 mg Clonidine (Catapres) 0.1 mg PO Q4H PRN PRN Reason: SBP>160 Cyanocobalamin (Vitamin B-12) 500 mcg PO BID [facility] Last Admin: 08/28/18 08:55 Dose: 500 mcg Cyclosporine (Restasis) 0 ml EA EYE BID [facility] Last Admin: 08/28/18 08:55 Dose: 0.4 ml Dextrose/Water (Dextrose 50%) 25 gm SLOW IVP PRN PRN PRN Reason: Hypoglycemia Famotidine (Pepcid) 20 mg SLOW IVP BID [facility] Last Admin: 08/28/18 08:53 Dose: Not Given Famotidine (Pepcid) 20 mg PO BID [facility] Last Admin: 08/28/18 08:53 Dose: 20 mg Fish Oil (Fish Oil) 1,000 mg PO DAILY [facility] Last Admin: 08/28/18 08:54 Dose: 1,000 mg Gabapentin (Neurontin) 600 mg PO BID [facility] Last Admin: 08/28/18 08:54 Dose: 600 mg Glucagon (Glucagon) 1 mg IM PRN PRN PRN Reason: Hypoglycemia Guaifenesin/Dextromethorphan (Robitussin Dm) 15 ml PO Q4H PRN PRN Reason: Cough Hydralazine HCl (Apresoline) 10 mg SLOW IVP Q4H PRN PRN Reason: BP >160/100 Last Admin: 08/28/18 11:12 Dose: 10 mg Fentanyl Citrate 2,000 mcg/ (Sodium Chloride) 100 mls @ 0 mls/hr IV INF [facility]; Protocol Stop: 09/19/18 18:34 Last Admin: 08/25/18 22:16 Dose: 100 mls Fentanyl Citrate (Fentanyl Bolus) 250 mls @ 0 mls/hr IVPB PRN PRN PRN Reason: Breakthrough pain/agitation Stop: 09/19/18 18:34 Cefepime HCl 1 gm/ Sodium (Chloride) 100 mls @ 200 mls/hr IVPB Q12HR [facility] Last Admin: 08/28/18 08:54 Dose: 100 mls Dextrose/Water (D5w) 1,000 mls @ 0 mls/hr IV .Q0M PRN PRN Reason: Hypoglycemia Insulin Human NPH (Humulin N) 45 unit SC Q12HR [facility] Last Admin: 08/28/18 09:08 Dose: 45 unit Insulin Human Regular (Humulin R) 0 units SC .AGGRESSIVE SLIDING PRN PRN Reason: Aggressive Sliding Scale Last Admin: 08/27/18 09:29 Dose: 3 unit Iron/Minerals/Multivitamins (Theragran M) 1 tab PO DAILY [facility] Last Admin: 08/28/18 08:54 Dose: 1 tab Lorazepam (Ativan) 2 mg SLOW IVP Q1H PRN PRN Reason: Breakthrough agitation Stop: 09/19/18 18:34 Losartan Potassium (Cozaar) 50 mg PO DAILY [facility] Losartan Potassium (Cozaar) 50 mg PO ONE [facility] Magnesium Oxide (Magnesium Oxide) 500 mg PO DAILY [facility] Last Admin: 08/28/18 09:28 Dose: 500 mg Methylprednisolone Sodium Succinate (Solu-Medrol) 20 mg IVP BID [facility] Last Admin: 08/28/18 08:55 Dose: 20 mg Miscellaneous Medication (Pharmacy To Dose) 1 each IVPB PRN PRN PRN Reason: Pharmacy to dose Miscellaneous Medication (Ventilator Sedation Protocol) 1 each FS [facility] Stop: 09/19/18 18:01 Morphine Sulfate (Morphine) 2 mg SLOW IVP Q1H PRN PRN Reason: BREAKTHROUGH PAIN/Agitation Stop: 09/19/18 18:34 Nifedipine (Procardia Xl) 30 mg PO DAILY [facility] Discontinue Previous Narcotic Pain Medications And Benzodiazepines 1 each FS .ONE [facility] Stop: 09/19/18 18:34 Ondansetron HCl (Zofran Odt) 4 mg PO Q6H PRN PRN Reason: Nausea/Vomiting Ondansetron HCl (Zofran) 4 mg IVP Q6H PRN PRN Reason: Nausea/Vomiting Propofol (Diprivan) 1,000 mg IV INF PRN; Protocol PRN Reason: TO ACHIEVE GOAL RASS Stop: 09/19/18 18:34 Last Admin: 08/27/18 23:48 Dose: 1,000 mg Propofol (Diprivan Bolus) 20 mg IV Q5MIN PRN PRN Reason: BREAKTHROUGH AGITATION Stop: 09/19/18 18:34 Last Admin: 08/21/18 20:30 Dose: 20 mg Senna/Docusate Sodium (Senokot S) 2 tab PO BID PRN PRN Reason: Constipation Sodium Chloride (Flush - Normal Saline) 10 ml IVF Q12HR [facility] Last Admin: 08/28/18 08:56 Dose: 10 ml Sodium Chloride (Flush - Normal Saline) 10 ml IVF PRN PRN PRN Reason: Saline Flush Tamsulosin HCl (Flomax) 0.4 mg PO DAILY [facility] Last Admin: 08/28/18 08:54 Dose: 0.4 mg
--- NOTE | 2018-08-28 22:42 | PRG ---
DATE OF SERVICE: 08/28/2018 SUBJECTIVE: Mr. Jason remains mechanically ventilated. He will respond when his sedation is decreased. He moves all his extremities. OBJECTIVE: VITAL SIGNS: Blood pressure is 137/58, heart rate is 72, respiratory rate is 18, oximetry is 100%. LUNGS: Remarkable for clear breath sounds anteriorly. HEART: Regular rhythm. S1 and S2 are normal. ABDOMEN: Soft and nontender. EXTREMITIES: Without clubbing, cyanosis, or edema. LABORATORY DATA: White count is 5.2, hemoglobin 9.5, platelets 80,000. Sodium 145, potassium 5.5, chloride 111, bicarb 26, BUN 64, creatinine 1.19. Cultures have been reviewed, are still negative. Intake and outputs, negative 788. Chest radiographs fairly unremarkable. Blood gas shows pH 7.42, CO2 43, pO2 95. His ventilatory rate has been turned down to 8. We will probably turn him down to a rate of 4 in the morning. We will move towards weaning from mechanical ventilation. He appears to be slowly improving. IMPRESSION: 1. Acute respiratory failure secondary to an influenza pneumonia. 2. Upper lobe atelectasis, resolved. 3. Thrombocytopenia. 4. Diabetes. 5. Chronic kidney disease with mild hyperkalemia. PLAN: Continue current care. Nephrology is following as well. Slowly continue decreased ventilatory support. Critical care time is 35 minutes. Job ID: [id number] MTDD
[2018-08-29 06:09] LABS: Anion Gap 8 mmol/L (10-20); BUN (Urea Nitrogen) 66 mg/dL (8.4-25.7); Calc. Creatinine Clearance 69 mL/min (70-130); Calcium 9.7 mg/dL (7.8-10.44); Carbon Dioxide 29 mmol/L (23-31); Chloride 103 mmol/L (98-107); Estimated GFR-MDRD 62; Glucose 149 mg/dL (83-110); Potassium 4.2 mmol/L (3.5-5.1); Sodium 136 mmol/L (136-145)
[2018-08-29 07:34] LABS: Actual Bicarbonate (HCO3a) 27.4 mEq/L (22-28); Base Excess (BEa) 2.6 mEq/L (-2.0 to +3.0); CO2 Tension 43.3 mmHg (35.0-45.0); Calcium, Ionized 1.32 mmol/L (1.12-1.30); Carboxyhemoglobin (COHb) 1.5 gm% (0.0-3.0); Hemoglobin (Hb) 11.9 g/dL (14.0-18.0); Potassium - ABG Lab 4.58 mmol/L (3.70-5.30); pH, Arterial 7.42 (7.35-7.45)
[2018-08-29 07:35] LABS: ALV-art Gradient 136.625 (0-20); O2 Tension (PaO2) 58.8 mmHg (> 60.0); Puncture Site RRA
[2018-08-29 08:02] LABS: Band 11 % (5-11); Hemoglobin 11.2 g/dL (14.0-18.0); Lymphocytes 23 % (21-51); MDiff Complete? YES; Mean Corpuscular HGB CONC 31.7 g/dL (32.0-36.0); Mean Corpuscular Hemoglobin 31.6 pg (27.0-31.0); Mean Corpuscular Volume 99.7 fL (78.0-98.0); Mean Platelet Volume 8.3 fL (7.4-10.4); Metamyelocyte 1 % (0-0); Monocytes 3 % (0-10); Neutrophil 61 % (42-75); Nucleated RBC 1 % (0); Platelet Count 80 thou/uL (130-400); Platelet Morphology Comment Appears Decreased; Promyelocytes 1 % (0-0); RBC Distribution Width 15.2 % (11.5-14.5); Red Blood Cell (RBC) Count 3.54 mill/uL (4.70-6.10); White Blood Cell (WBC) Count 6.1 thou/uL (4.8-10.8)
[2018-08-29] MEDS: Cefepime 1 GM in Sodium Chloride 0.9% 100 ML IVPB SCH ×2 (08:42→20:48)
[2018-08-29] MEDS: Tamsulosin HCl 0.4 MG CAP PO SCH (08:43)
[2018-08-29] MEDS: Famotidine 20 MG TAB PO SCH ×2 (08:43→20:47)
[2018-08-29] MEDS: Amlodipine 10 MG TAB PO SCH (08:43)
[2018-08-29] MEDS: Multivitamin W/ Minerals 1 TAB PO SCH (08:44)
[2018-08-29] MEDS: Cyanocobalamin (Vitamin B-12) 1,000 MCG TAB PO SCH ×2 (08:44→20:47)
[2018-08-29] MEDS: Carvedilol 25 MG TAB PO SCH ×2 (08:44→20:47)
[2018-08-29] MEDS: Fish Oil 1,000 MG CAP PO SCH (08:44)
[2018-08-29] MEDS: Famotidine/PF 20 mg/2ml Vial SLOW IVP SCH ×2 (08:45→20:50)
[2018-08-29] MEDS: Gabapentin 300 MG CAP PO SCH ×2 (08:45→20:47)
[2018-08-29] MEDS: Calcitriol 0.25 MCG CAP PO SCH (08:45)
[2018-08-29] MEDS ORDERED: Losartan 25 MG TAB PO SCH (09:00)
[2018-08-29] MEDS ORDERED: NIFEdipine XL 30 MG TAB PO SCH (09:00)
[2018-08-29] MEDS ORDERED: NIFEdipine XL 60 MG TAB PO SCH (09:00)
--- NOTE | 2018-08-29 09:00 | RAD ---
PORTABLE CHEST: Date: 08/29/18 PROVIDED CLINICAL HISTORY: Respiratory insufficiency. FINDINGS: Comparison made with study dated 08/28/18. Significant interval change with respect to the prior examination is not apparent. IMPRESSION: As above. POS: MASHA
[2018-08-29] MEDS: cycloSPORINE 0.05% Ophthalmic Droperette EA EYE SCH ×2 (09:03→21:42)
[2018-08-29] MEDS: NPH, Human Insulin Isophane 300 UNIT/3 ML VIAL SC SCH ×2 (09:04→20:46)
[2018-08-29] MEDS: Aspirin Chewable 81 MG TAB PO SCH (10:27)
[2018-08-29] MEDS: Insulin Regular 300 UNITS/3 ML VIAL SC PRN (10:31)
--- NOTE | 2018-08-29 13:41 | PRG ---
DATE OF SERVICE: 08/28/2018 SUBJECTIVE: The patient noted with the following vital signs. OBJECTIVE: VITAL SIGNS: Blood pressure 152/66, respiratory rate of 14. HEENT: Unremarkable. CARDIOVASCULAR SYSTEM: First and second heart sounds were heard. RESPIRATORY SYSTEM: Clear to auscultation. DIGESTIVE SYSTEM: benign abdomen. EXTREMITIES: No peripheral edema. SKIN: no new gross rash LABORATORY INVESTIGATION: Significant for Chemistry that showed a potassium of 5.5. IMPRESSION: 1. Persistent hyperkalemia querry cause. 2. Thrombocytopenia. PLAN: 1. The hyperkalemia may be related to the medication losartan. Therefore, we will make arrangements to adjust this medication to medication that does not have any potential of causing hyperkalemia. 2. Continue to monitor electrolytes accordingly and hemodynamics as these changes have been made. Job ID: [id number] [facility]
--- NOTE | 2018-08-29 13:47 | PRG ---
DATE OF SERVICE: 08/29/2018 SUBJECTIVE: Mr. Jason is awake and in no distress. His left upper lobe atelectasis has not recurred. His chest radiograph today is probably normal for him. He is in no distress. He had fairly dense and impressive atelectasis several days back. OBJECTIVE: VITAL SIGNS: He is afebrile. Heart rate 69, blood pressure 122/56 , and respiratory rate 18. We will do weaning parameters and check for any leak. He might be a candidate for extubation today. LUNGS: Completely clear. HEART: Regular rhythm. S1 and S2 are normal. ABDOMEN: Soft and nontender. EXTREMITIES: Without edema or asymmetry. LABORATORY DATA: White count 6.1, hemoglobin 11.2, platelets 80,000. Sodium 136, potassium 4.2, chloride 103, bicarb 29, BUN 66, creatinine 1.13, and BUN yesterday was 64. IMPRESSION: 1. Respiratory failure. 2. Left upper lobe atelectasis secondary to mucus plug, status post bronchoscopy by Dr. Noble. 3. Influenza swab positive. 4. Hyperkalemia, resolved. 5. Anemia, likely mixed some which is chronic disease, some which is related to his acute illness. He has had no blood loss. 6. Thrombocytopenia. 7. Circulating metamyelocytes and myelocytes on peripheral smear, presumably related to his acute illness, but this will need to be monitored to rule out a background of early myelodysplasia. This would probably have very little to do with this admission. 8. History of aortic valve replacement. 9. History of hypertension. 10. History of prostate cancer. 11. Chronic kidney disease, stable. 12. Nonsustained ventricular tachycardia. 13. History of coronary artery bypass grafting. 14. History of atrial fibrillation. Overall appears to be stable. We may consider extubation later today if he remains stable. Critical care time 30 minutes. Job ID: [id number] [facility]TDD
--- NOTE | 2018-08-29 14:04 | PDOC.PN ---
- Subjective Encounter Start Date: 08/29/18 Encounter Start Time: 14:02 Subjective: remains intubated.awake but falls asleep easily - Objective Resuscitation Status - Order Detail: 08/18/18 23:37 Resuscitation Status Routine Resuscitation Status: FULL: Full Resuscitation MAR Reviewed: Yes Vital Signs & Weight: Vital Signs (12 hours) Temp Pulse Resp BP Pulse Ox 08/29/18 12:59 70 128/61 08/29/18 11:00 99.0 F 08/29/18 10:54 69 08/29/18 10:28 70 122/56 L 08/29/18 10:00 14 08/29/18 08:43 70 146/74 H 08/29/18 08:17 70 146/74 H 08/29/18 08:00 18 98 08/29/18 07:00 98.2 F 08/29/18 06:00 16 08/29/18 04:00 15 Weight Admit Weight 205 lb 8 oz Weight 211 lb 12.8 oz Most Recent Monitor Data Heart Rate from ECG 70 NIBP 122/56 NIBP BP-Mean 78 Respiration from ECG 14 SpO2 100 I&O: 08/28/18 08/29/18 08/30/18 06:59 06:59 06:59 Intake Total 1591.7 1631 310 Output Total 2380 2795 635 [place] -788.3 -1164 -325 Result Diagrams: 08/29/18 05:01 08/29/18 05:01 Additional Labs: Accuchecks 08/29/18 08/29/18 08/28/18 10:31 04:24 22:12 POC Glucose 153 H 141 H 147 H 08/28/18 16:07 POC Glucose 142 H Microbiology 08/24/18 08:25 Bronchial Washing Respiratory Culture - Final 08/20/18 17:55 Bronchial Washing - Aqueous Fluid Respiratory Culture - Final 08/18/18 19:15 Urine voided Urine Culture - Final NO GROWTH AT 48 HOURS 08/18/18 19:01 Nasal swab Influenza Types A,B Direct EIA - Final 08/18/18 18:32 Venous blood - Right Hand Blood Culture - Final NO GROWTH IN 5 DAYS 08/18/18 18:03 Venous blood - Right Hand Blood Culture - Final NO GROWTH IN 5 DAYS Laboratory Tests 08/23/18 08/24/18 08/25/18 04:34 04:23 04:10 Plt Count 99 L 90 L 75 L 08/27/18 08/28/18 08/29/18 04:09 04:30 05:01 Plt Count 87 L 80 L 80 L Phys Exam - Physical Examination Constitutional: NAD somnolent HEENT: PERRLA, moist MMs, sclera anicteric, oral pharynx no lesions ETT Neck: no nodes, no JVD, supple, full ROM Respiratory: no wheezing, no rales, no rhonchi, clear to auscultation bilateral Cardiovascular: RRR, no significant murmur, no rub Gastrointestinal: soft, non-tender, no distention, positive bowel sounds Musculoskeletal: no edema, pulses present Neurological: non-focal, normal sensation, moves all 4 limbs Skin: no rash Dx/Plan (1) Acute respiratory failure with hypoxia Code(s): J96.01 - ACUTE RESPIRATORY FAILURE WITH HYPOXIA Status: Acute Comment: Intubated, mechanically ventilated (2) Pneumonia Code(s): J18.9 - PNEUMONIA, UNSPECIFIED ORGANISM Status: Acute Qualifiers: Laterality: left Lung location: upper lobe of lung Comment: levofloxacin and cefepime (3) Influenza B Code(s): J10.1 - FLU DUE TO OTH IDENT INFLUENZA VIRUS W OTH RESP MANIFEST Status: Acute Comment: treated with Tamiflu (4) Hypernatremia Code(s): E87.0 - HYPEROSMOLALITY AND HYPERNATREMIA Status: Acute Comment: increase free water per dobhoff. monitor.improving (5) Thrombocytopenia Code(s): D69.6 - THROMBOCYTOPENIA, UNSPECIFIED Status: Acute (6) Chronic diastolic heart failure Code(s): I50.32 - CHRONIC DIASTOLIC (CONGESTIVE) HEART FAILURE Status: Chronic Comment: stable (7) Sepsis Code(s): A41.9 - SEPSIS, UNSPECIFIED ORGANISM Status: Resolved (8) CAD (coronary artery disease) Code(s): I25.10 - ATHSCL HEART DISEASE OF [place] CORONARY ARTERY W/O ANG PCTRS Status: Chronic Qualifiers: (9) Dyslipidemia Code(s): E78.5 - HYPERLIPIDEMIA, UNSPECIFIED Status: Chronic Comment: on statin (10) HTN (hypertension) Code(s): I10 - ESSENTIAL (PRIMARY) HYPERTENSION Status: Chronic Qualifiers: Comment: controlled - Plan continue antibiotics, PT/OT, out of bed/ambulate, DVT proph w/SCDs Vent weaning per Pulmonary. -: bronchial wash negative so far. -: cont BB for NSVT.on ASA,coreg,amlodipine -: stop procradia as it can not crushed and pt already on amlodipine -: clinically better * . Review of Systems - Review of Systems Other: can not be obtained due to intubated state - Medications/Allergies Allergies/Adverse Reactions: Allergies Allergy/AdvReac Type Severity Reaction Status Date / Time Penicillins Allergy dyspnea Verified 09/13/17 21:11 zolpidem [From Ambien] Allergy "very Verified 09/13/17 21:11 loopy" Medications: Current Medications Acetaminophen (Tylenol) 650 mg PO Q4H PRN PRN Reason: Headache/Fever/Mild Pain (1-3) Acetaminophen (Tylenol) 650 mg TN Q4H PRN PRN Reason: Headache/Fever/Mild Pain (1-3) Amlodipine Besylate (Norvasc) 10 mg PO DAILY [facility] Last Admin: 08/29/18 08:43 Dose: 10 mg Aspirin (Aspirin Chewable) 81 mg PO DAILY [facility] Last Admin: 08/29/18 10:27 Dose: 81 mg Bisacodyl (Dulcolax) 10 mg PO DAILYPRN PRN PRN Reason: Constipation Calcitriol (Rocaltrol) 0.25 mcg PO DAILY [facility] Last Admin: 08/29/18 08:45 Dose: 0.25 mcg Carvedilol (Coreg) 25 mg PO BID [facility] Last Admin: 08/29/18 08:44 Dose: 25 mg Clonidine (Catapres) 0.1 mg PO Q4H PRN PRN Reason: SBP>160 Cyanocobalamin (Vitamin B-12) 500 mcg PO BID [facility] Last Admin: 08/29/18 08:44 Dose: 500 mcg Cyclosporine (Restasis) 0 ml EA EYE BID [facility] Last Admin: 08/29/18 09:03 Dose: 0.4 ml Dextrose/Water (Dextrose 50%) 25 gm SLOW IVP PRN PRN PRN Reason: Hypoglycemia Famotidine (Pepcid) 20 mg SLOW IVP BID [facility] Last Admin: 08/29/18 08:45 Dose: Not Given Famotidine (Pepcid) 20 mg PO BID [facility] Last Admin: 08/29/18 08:43 Dose: 20 mg Fish Oil (Fish Oil) 1,000 mg PO DAILY [facility] Last Admin: 08/29/18 08:44 Dose: 1,000 mg Gabapentin (Neurontin) 600 mg PO BID [facility] Last Admin: 08/29/18 08:45 Dose: 600 mg Glucagon (Glucagon) 1 mg IM PRN PRN PRN Reason: Hypoglycemia Guaifenesin/Dextromethorphan (Robitussin Dm) 15 ml PO Q4H PRN PRN Reason: Cough Hydralazine HCl (Apresoline) 10 mg SLOW IVP Q4H PRN PRN Reason: BP >160/100 Last Admin: 08/28/18 11:12 Dose: 10 mg Fentanyl Citrate 2,000 mcg/ (Sodium Chloride) 100 mls @ 0 mls/hr IV INF [facility]; Protocol Stop: 09/19/18 18:34 Last Admin: 08/25/18 22:16 Dose: 100 mls Fentanyl Citrate (Fentanyl Bolus) 250 mls @ 0 mls/hr IVPB PRN PRN PRN Reason: Breakthrough pain/agitation Stop: 09/19/18 18:34 Cefepime HCl 1 gm/ Sodium (Chloride) 100 mls @ 200 mls/hr IVPB Q12HR [facility] Last Admin: 08/29/18 08:42 Dose: 100 mls Dextrose/Water (D5w) 1,000 mls @ 0 mls/hr IV .Q0M PRN PRN Reason: Hypoglycemia Insulin Human NPH (Humulin N) 45 unit SC Q12HR [facility] Last Admin: 08/29/18 09:04 Dose: 45 unit Insulin Human Regular (Humulin R) 0 units SC .AGGRESSIVE SLIDING PRN PRN Reason: Aggressive Sliding Scale Last Admin: 08/29/18 10:31 Dose: 3 unit Iron/Minerals/Multivitamins (Theragran M) 1 tab PO DAILY [facility] Last Admin: 08/29/18 08:44 Dose: 1 tab Lorazepam (Ativan) 2 mg SLOW IVP Q1H PRN PRN Reason: Breakthrough agitation Stop: 09/19/18 18:34 Methylprednisolone Sodium Succinate (Solu-Medrol) 20 mg IVP BID [facility] Last Admin: 08/29/18 08:43 Dose: 20 mg Miscellaneous Medication (Pharmacy To Dose) 1 each IVPB PRN PRN PRN Reason: Pharmacy to dose Miscellaneous Medication (Ventilator Sedation Protocol) 1 each FS ONE [facility] Stop: 09/19/18 18:01 Morphine Sulfate (Morphine) 2 mg SLOW IVP Q1H PRN PRN Reason: BREAKTHROUGH PAIN/Agitation Stop: 09/19/18 18:34 Discontinue Previous Narcotic Pain Medications And Benzodiazepines 1 each FS .[facility] Stop: 09/19/18 18:34 Ondansetron HCl (Zofran Odt) 4 mg PO Q6H PRN PRN Reason: Nausea/Vomiting Ondansetron HCl (Zofran) 4 mg IVP Q6H PRN PRN Reason: Nausea/Vomiting Propofol (Diprivan) 1,000 mg IV INF PRN; Protocol PRN Reason: TO ACHIEVE GOAL RASS Stop: 09/19/18 18:34 Last Admin: 08/27/18 23:48 Dose: 1,000 mg Propofol (Diprivan Bolus) 20 mg IV Q5MIN PRN PRN Reason: BREAKTHROUGH AGITATION Stop: 09/19/18 18:34 Last Admin: 08/21/18 20:30 Dose: 20 mg Senna/Docusate Sodium (Senokot S) 2 tab PO BID PRN PRN Reason: Constipation Sodium Chloride (Flush - Normal Saline) 10 ml IVF Q12HR [facility] Last Admin: 08/29/18 10:28 Dose: 10 ml Sodium Chloride (Flush - Normal Saline) 10 ml IVF PRN PRN PRN Reason: Saline Flush Tamsulosin HCl (Flomax) 0.4 mg PO DAILY [facility] Last Admin: 08/29/18 08:43 Dose: 0.4 mg
--- NOTE | 2018-08-29 21:00 | PRG ---
DATE OF SERVICE: 08/29/2018 SUBJECTIVE: Patient noted with the following vital signs. OBJECTIVE: VITAL SIGNS: Afebrile, temperature 98.5; pulse 72; blood pressure of 122/58. HEENT EXAMINATION: Unremarkable. CARDIOVASCULAR SYSTEM: First and second heart sounds were heard. RESPIRATORY SYSTEM: Clear to auscultation. DIGESTIVE SYSTEM: Revealed a benign abdomen. Positive bowel sounds. EXTREMITIES: No peripheral edema. SKIN EXAMINATION: No new gross rash. LYMPHATICS: No peripheral lymphadenopathy. LABORATORY INVESTIGATION: Showed a creatinine of 1.13, potassium of 4.2. IMPRESSION: Hyperkalemia, it seems to have resolved status post discontinuation of losartan. PLAN: 1. We will continue with current antihypertensive medications. 2. Further management will be dependent on the clinical course. Job ID: [id number]
[2018-08-30 05:31] LABS: Anion Gap 13 mmol/L (10-20); BUN (Urea Nitrogen) 71 mg/dL (8.4-25.7); Calc. Creatinine Clearance 94 mL/min (70-130); Calcium 9.9 mg/dL (7.8-10.44); Carbon Dioxide 26 mmol/L (23-31); Chloride 111 mmol/L (98-107); Estimated GFR-MDRD 61; Glucose 113 mg/dL (83-110); Potassium 4.8 mmol/L (3.5-5.1); Sodium 145 mmol/L (136-145)
[2018-08-30 05:42] LABS: Band 15 % (5-11); Hemoglobin 10.7 g/dL (14.0-18.0); Lymphocytes 7 % (21-51); MDiff Complete? YES; Mean Corpuscular HGB CONC 31.8 g/dL (32.0-36.0); Mean Corpuscular Hemoglobin 31.4 pg (27.0-31.0); Mean Platelet Volume 8.6 fL (7.4-10.4); Monocytes 7 % (0-10); Myelocyte 3 % (0-0); Neutrophil 68 % (42-75); Platelet Count 76 thou/uL (130-400); Platelet Morphology Comment Appears Decreased; RBC Distribution Width 15.2 % (11.5-14.5)
[2018-08-30 06:55] LABS: ALV-art Gradient 135.775 (0-20); Actual Bicarbonate (HCO3a) 27.1 mEq/L (22-28); Base Excess (BEa) 3.2 mEq/L (-2.0 to +3.0); CO2 Tension 38.9 mmHg (35.0-45.0); Carboxyhemoglobin (COHb) 1.5 gm% (0.0-3.0); Hemoglobin (Hb) 10.8 g/dL (14.0-18.0); O2 Tension (PaO2) 100.8 mmHg (> 60.0); Potassium - ABG Lab 4.61 mmol/L (3.70-5.30); Puncture Site RRA; pH, Arterial 7.46 (7.35-7.45)
--- NOTE | 2018-08-30 08:05 | PRG ---
DATE OF SERVICE: 08/30/2018 PULMONARY/CRITICAL CARE PROGRESS NOTE TIME SPENT: 35 minutes of critical care time. SUBJECTIVE: The patient remains intubated on mechanical ventilation. He is up in the chair this morning. OBJECTIVE: VITAL SIGNS: On examination, temperature is 98.8, pulse 81, and blood pressure 123/64. A 24-hour intake 1267, output 2300. Weight 202 pounds. HEENT: Unremarkable. NECK: No JVD. LUNGS: Diminished breath sounds at the bases. CARDIAC: S1 and S2, regular. ABDOMEN: Soft. EXTREMITIES: No edema. LABORATORY DATA: Sodium 145, potassium 4.8, chloride 111, CO2 of 26, BUN 71, creatinine 1.1, and glucose 113. PH of 7.46, pCO2 of 38, pO2 of 100 on SIMV rate of 14, tidal volume of 500, PEEP 5, pressure support 10, and FiO2 of 40%. White blood cell count 6, hematocrit 33.7, and platelet count 76. ASSESSMENT: 1. Pneumonia. 2. Influenza type B. 3. Recent mucus plugging. 4. Acute respiratory failure, requiring mechanical ventilation. PLAN: I will do quick bronchoscopy because his x-ray shows possible atelectasis in the left lower lobe. If the bronchoscopy looks good, then he will be extubated. Physical therapy will need to be initiated. Job ID: [id number]
--- NOTE | 2018-08-30 08:11 | OP ---
DATE OF PROCEDURE: 08/30/2018 PROCEDURE: Therapeutic bronchoscopy. PREOPERATIVE DIAGNOSIS: Left lower lobe mucus plugging. POSTOPERATIVE DIAGNOSIS: Left lower lobe mucus plugging. ANESTHESIA: None. DESCRIPTION OF PROCEDURE: This was done prior to extubation to clear the patient's left lower lobe since collapse was suggested on the x-ray. An Ambu disposable bronchoscope was placed down the patient's endotracheal tube while he was on mechanical ventilation. There were scant secretions present in the left lower lobe. These were lavaged and aspirated. There were also some secretions present in the right upper lobe, which were also lavaged and aspirated. The remainder of the airways was clear. He tolerated the procedure well. Job ID: [id number]
[2018-08-30] MEDS: Fish Oil 1,000 MG CAP PO SCH (08:12)
[2018-08-30] MEDS: Amlodipine 10 MG TAB PO SCH (08:12)
[2018-08-30] MEDS: Aspirin Chewable 81 MG TAB PO SCH (08:12)
[2018-08-30] MEDS: Gabapentin 300 MG CAP PO SCH ×2 (08:12→20:38)
[2018-08-30] MEDS: Tamsulosin HCl 0.4 MG CAP PO SCH (08:12)
[2018-08-30] MEDS: Multivitamin W/ Minerals 1 TAB PO SCH (08:12)
[2018-08-30] MEDS: Famotidine 20 MG TAB PO SCH ×2 (08:13→20:38)
[2018-08-30] MEDS: Cyanocobalamin (Vitamin B-12) 1,000 MCG TAB PO SCH ×2 (08:13→20:41)
[2018-08-30] MEDS: Calcitriol 0.25 MCG CAP PO SCH (08:13)
[2018-08-30] MEDS: Cefepime 1 GM in Sodium Chloride 0.9% 100 ML IVPB SCH ×2 (09:14→20:37)
[2018-08-30] MEDS: cycloSPORINE 0.05% Ophthalmic Droperette EA EYE SCH ×2 (09:23→20:39)
--- NOTE | 2018-08-30 09:38 | RAD ---
AP VIEW CHEST: HISTORY: Ventilator-dependent patient. FINDINGS: AP view chest is obtained on 08/30/2018. Comparison is made to previous exam from 08/29/2018. AP view chest demonstrates nasogastric and endotracheal tubes in place. There is interval developmen t of blunting of the left costophrenic angle compatible with a left-sided pleural effusion. This was not pervious on the previous day's exam. There may also be some component of atelectasis or pneumon ia in the left lung base prosthetic cardiac valve is seen. A dual-lead intracardiac pacing device is seen. IMPRESSION: 1. Nasogastric tube and endotracheal tubes are in good position. 2. Sternotomy wires seen. 3. Dual-lead intracardiac pacing device. 4. Prosthetic cardiac valve. 5. Development of a left-sided pleural effusion with or without some component of left lower lobe at electasis or pneumonia. POS: [facility]
[2018-08-30] MEDS: Famotidine/PF 20 mg/2ml Vial SLOW IVP SCH ×2 (09:39→20:39)
[2018-08-30] MEDS: NPH, Human Insulin Isophane 300 UNIT/3 ML VIAL SC SCH (09:39)
[2018-08-30] MEDS: Carvedilol 25 MG TAB PO SCH ×2 (10:56→20:38)
--- NOTE | 2018-08-30 12:46 | PDOC.PN ---
- Subjective Encounter Start Date: 08/30/18 Encounter Start Time: 12:44 Subjective: extubated earlier today and feels OK.very weak but no SOB -: occasional NSVT per RN - Objective Resuscitation Status - Order Detail: 08/18/18 23:37 Resuscitation Status Routine Resuscitation Status: FULL: Full Resuscitation MAR Reviewed: Yes Vital Signs & Weight: Vital Signs (12 hours) Temp Pulse Pulse Pulse Resp BP BP 08/30/18 12:00 08/30/18 11:00 98.9 F 08/30/18 10:22 08/30/18 09:45 70 70 117/67 08/30/18 08:34 71 16 08/30/18 08:12 70 149/75 H 08/30/18 08:00 16 08/30/18 07:00 98.8 F 08/30/18 06:28 70 109/55 L 08/30/18 06:00 17 08/30/18 04:00 98.4 F 19 08/30/18 02:00 17 BP Pulse Ox Pulse Ox Pulse Ox 08/30/18 12:00 99 08/30/18 11:00 08/30/18 10:22 99 08/30/18 09:45 114/62 100 100 08/30/18 08:34 99 08/30/18 08:12 08/30/18 08:00 99 08/30/18 07:00 08/30/18 06:28 08/30/18 06:00 08/30/18 04:00 08/30/18 02:00 Weight Admit Weight 205 lb 8 oz Weight 202 lb 1 oz Most Recent Monitor Data Heart Rate from ECG 70 NIBP 106/51 NIBP BP-Mean 69 Respiration from ECG 16 SpO2 98 I&O: 08/29/18 08/30/18 08/31/18 06:59 06:59 06:59 Intake Total 1631 1267 250 Output Total 4005 2300 380 Balance -1164 -1033 -130 Result Diagrams: 08/30/18 04:32 08/30/18 04:32 Additional Labs: Accuchecks 08/30/18 08/30/18 08/29/18 09:26 05:38 21:48 POC Glucose 134 H 120 H 98 08/29/18 16:09 POC Glucose 128 H Microbiology 08/24/18 08:25 Bronchial Washing Respiratory Culture - Final 08/20/18 17:55 Bronchial Washing - Aqueous Fluid Respiratory Culture - Final 08/18/18 19:15 Urine voided Urine Culture - Final NO GROWTH AT 48 HOURS 08/18/18 19:01 Nasal swab Influenza Types A,B Direct EIA - Final 08/18/18 18:32 Venous blood - Right Hand Blood Culture - Final NO GROWTH IN 5 DAYS 08/18/18 18:03 Venous blood - Right Hand Blood Culture - Final NO GROWTH IN 5 DAYS Laboratory Tests 08/18/18 08/20/18 08/22/18 17:19 09:42 04:24 Creatinine 2.61 H 2.17 H 1.69 H 08/24/18 08/25/18 08/26/18 04:23 03:30 04:15 Creatinine 1.62 H 1.32 H 1.28 08/29/18 08/30/18 05:01 04:32 Creatinine 1.13 1.14 Phys Exam - Physical Examination Constitutional: NAD sitting up in neuro chair w high flow O2.awake but lethargic HEENT: PERRLA, moist MMs, sclera anicteric, oral pharynx no lesions Neck: no nodes, no JVD, supple, full ROM Respiratory: no wheezing, no rales, no rhonchi, clear to auscultation bilateral reduced at bases Cardiovascular: RRR, no significant murmur Gastrointestinal: soft, non-tender, no distention, positive bowel sounds Musculoskeletal: no edema, pulses present Neurological: moves all 4 limbs Psychiatric: normal affect, A&O x 3 Skin: no rash Dx/Plan (1) Acute respiratory failure with hypoxia Code(s): J96.01 - ACUTE RESPIRATORY FAILURE WITH HYPOXIA Status: Acute Comment: Extubated 08/30/18 (2) Pneumonia Code(s): J18.9 - PNEUMONIA, UNSPECIFIED ORGANISM Status: Acute Qualifiers: Laterality: left Lung location: upper lobe of lung Comment: levofloxacin and cefepime (3) Influenza B Code(s): J10.1 - FLU DUE TO OTH IDENT INFLUENZA VIRUS W OTH RESP MANIFEST Status: Acute Comment: treated with Tamiflu (4) Hypernatremia Code(s): E87.0 - HYPEROSMOLALITY AND HYPERNATREMIA Status: Acute Comment: increase free water per dobhoff. monitor.improved (5) Thrombocytopenia Code(s): D69.6 - THROMBOCYTOPENIA, UNSPECIFIED Status: Acute (6) Chronic diastolic heart failure Code(s): I50.32 - CHRONIC DIASTOLIC (CONGESTIVE) HEART FAILURE Status: Chronic Comment: stable (7) Sepsis Code(s): A41.9 - SEPSIS, UNSPECIFIED ORGANISM Status: Resolved (8) CAD (coronary artery disease) Code(s): I25.10 - ATHSCL HEART DISEASE OF [place] CORONARY ARTERY W/O ANG PCTRS Status: Chronic Qualifiers: (9) Dyslipidemia Code(s): E78.5 - HYPERLIPIDEMIA, UNSPECIFIED Status: Chronic Comment: on statin (10) HTN (hypertension) Code(s): I10 - ESSENTIAL (PRIMARY) HYPERTENSION Status: Chronic Qualifiers: Comment: controlled (11) History of aortic valve replacement with bioprosthetic valve Code(s): Z95.3 - PRESENCE OF XENOGENIC HEART VALVE Status: Chronic - Plan continue antibiotics, PT/OT, respiratory therapy, incentive spirometry, DVT proph w/SCDs weaned off of Vent.cont supportive care -: eventua placement -: meds as below. -: monitor lytes.Renal Fx better.monitor -: cont coreg and amlodipine. BP better controlled. * . Review of Systems - Review of Systems Constitutional: weakness, malaise. negative: fever, chills, sweats, other Respiratory: negative: Cough, Dry, Shortness of Breath, Hemoptysis, SOB with Excertion, Pleuritic Pain, Sputum, Wheezing Cardiovascular: negative: chest pain, palpitations, orthopnea, paroxysmal nocturnal dyspnea, edema, light headedness, other Gastrointestinal: negative: Nausea, Vomiting, Abdominal Pain, Diarrhea, Constipation, Melena, Hematochezia, Other Genitourinary: negative: Dysuria, Frequency, Incontinence, Hematuria, Retention , Other Neurological: negative: Weakness, Numbness, Incoordination, Change in Speech, Confusion, Seizures, Other Other: Limited ROS due to weakness - Medications/Allergies Allergies/Adverse Reactions: Allergies Allergy/AdvReac Type Severity Reaction Status Date / Time Penicillins Allergy dyspnea Verified 09/13/17 21:11 zolpidem [From Ambien] Allergy "very Verified 09/13/17 21:11 loopy" Medications: Current Medications Acetaminophen (Tylenol) 650 mg PO Q4H PRN PRN Reason: Headache/Fever/Mild Pain (1-3) Acetaminophen (Tylenol) 650 mg NE Q4H PRN PRN Reason: Headache/Fever/Mild Pain (1-3) Amlodipine Besylate (Norvasc) 10 mg PO DAILY [facility] Last Admin: 08/30/18 08:12 Dose: 10 mg Aspirin (Aspirin Chewable) 81 mg PO DAILY [facility] Last Admin: 08/30/18 08:12 Dose: 81 mg Bisacodyl (Dulcolax) 10 mg PO DAILYPRN PRN PRN Reason: Constipation Calcitriol (Rocaltrol) 0.25 mcg PO DAILY [facility] Last Admin: 08/30/18 08:13 Dose: 0.25 mcg Carvedilol (Coreg) 25 mg PO BID [facility] Last Admin: 08/30/18 10:56 Dose: 25 mg Clonidine (Catapres) 0.1 mg PO Q4H PRN PRN Reason: SBP>160 Cyanocobalamin (Vitamin B-12) 500 mcg PO BID [facility] Last Admin: 08/30/18 08:13 Dose: 500 mcg Cyclosporine (Restasis) 0 ml EA EYE BID [facility] Last Admin: 08/30/18 09:23 Dose: 0.4 ml Dextrose/Water (Dextrose 50%) 25 gm SLOW IVP PRN PRN PRN Reason: Hypoglycemia Famotidine (Pepcid) 20 mg SLOW IVP BID [facility] Last Admin: 08/30/18 09:39 Dose: Not Given Famotidine (Pepcid) 20 mg PO BID [facility] Last Admin: 08/30/18 08:13 Dose: 20 mg Fish Oil (Fish Oil) 1,000 mg PO DAILY [facility] Last Admin: 08/30/18 08:12 Dose: 1,000 mg Gabapentin (Neurontin) 600 mg PO BID [facility] Last Admin: 08/30/18 08:12 Dose: 600 mg Glucagon (Glucagon) 1 mg IM PRN PRN PRN Reason: Hypoglycemia Guaifenesin/Dextromethorphan (Robitussin Dm) 15 ml PO Q4H PRN PRN Reason: Cough Hydralazine HCl (Apresoline) 10 mg SLOW IVP Q4H PRN PRN Reason: BP >160/100 Last Admin: 08/28/18 11:12 Dose: 10 mg Fentanyl Citrate 2,000 mcg/ (Sodium Chloride) 100 mls @ 0 mls/hr IV INF [facility]; Protocol Stop: 09/19/18 18:34 Last Admin: 08/25/18 22:16 Dose: 100 mls Fentanyl Citrate (Fentanyl Bolus) 250 mls @ 0 mls/hr IVPB PRN PRN PRN Reason: Breakthrough pain/agitation Stop: 09/19/18 18:34 Cefepime HCl 1 gm/ Sodium (Chloride) 100 mls @ 200 mls/hr IVPB Q12HR [facility] Last Admin: 08/30/18 09:14 Dose: 100 mls Dextrose/Water (D5w) 1,000 mls @ 0 mls/hr IV .Q0M PRN PRN Reason: Hypoglycemia Insulin Human NPH (Humulin N) 45 unit SC Q12HR [facility] Insulin Human Regular (Humulin R) 0 units SC .AGGRESSIVE SLIDING PRN PRN Reason: Aggressive Sliding Scale Last Admin: 08/29/18 10:31 Dose: 3 unit Iron/Minerals/Multivitamins (Theragran M) 1 tab PO DAILY [facility] Last Admin: 08/30/18 08:12 Dose: 1 tab Lorazepam (Ativan) 2 mg SLOW IVP Q1H PRN PRN Reason: Breakthrough agitation Stop: 09/19/18 18:34 Methylprednisolone Sodium Succinate (Solu-Medrol) 20 mg IVP BID [facility] Last Admin: 08/30/18 09:14 Dose: 20 mg Miscellaneous Medication (Pharmacy To Dose) 1 each IVPB PRN PRN PRN Reason: Pharmacy to dose Miscellaneous Medication (Ventilator Sedation Protocol) 1 each FS ONE [facility] Stop: 09/19/18 18:01 Morphine Sulfate (Morphine) 2 mg SLOW IVP Q1H PRN PRN Reason: BREAKTHROUGH PAIN/Agitation Stop: 09/19/18 18:34 Discontinue Previous Narcotic Pain Medications And Benzodiazepines 1 each FS .ONE [facility] Stop: 09/19/18 18:34 Ondansetron HCl (Zofran Odt) 4 mg PO Q6H PRN PRN Reason: Nausea/Vomiting Ondansetron HCl (Zofran) 4 mg IVP Q6H PRN PRN Reason: Nausea/Vomiting Propofol (Diprivan) 1,000 mg IV INF PRN; Protocol PRN Reason: TO ACHIEVE GOAL RASS Stop: 09/19/18 18:34 Last Admin: 08/27/18 23:48 Dose: 1,000 mg Propofol (Diprivan Bolus) 20 mg IV Q5MIN PRN PRN Reason: BREAKTHROUGH AGITATION Stop: 09/19/18 18:34 Last Admin: 08/21/18 20:30 Dose: 20 mg Senna/Docusate Sodium (Senokot S) 2 tab PO BID PRN PRN Reason: Constipation Sodium Chloride (Flush - Normal Saline) 10 ml IVF Q12HR [facility] Last Admin: 08/30/18 09:14 Dose: 10 ml Sodium Chloride (Flush - Normal Saline) 10 ml IVF PRN PRN PRN Reason: Saline Flush Tamsulosin HCl (Flomax) 0.4 mg PO DAILY [facility] Last Admin: 08/30/18 08:12 Dose: 0.4 mg
[2018-08-30] MEDS ORDERED: NPH, Human Insulin Isophane 300 UNIT/3 ML VIAL SC SCH (21:00)
--- NOTE | 2018-08-30 21:45 | PRG ---
DATE OF SERVICE: 08/30/2018 SUBJECTIVE: The patient was seen and examined, noted with the following vital signs. OBJECTIVE: VITAL SIGNS: Afebrile, temperature 98.9, pulse 70, respiratory rate of 16, blood pressure 149/75. HEENT: Unremarkable. CARDIOVASCULAR SYSTEM: First and second heart sounds were heard. RESPIRATORY SYSTEM: Revealed ventilator sounds. DIGESTIVE SYSTEM: Revealed a benign abdomen. EXTREMITIES: No peripheral edema. SKIN: No new gross rash. LYMPHATICS: No peripheral lymphadenopathy. IMPRESSION: 1. Acute kidney injury, which is improved. 2. Hyperkalemia, resolved since discontinuation of losartan. PLAN: 1. Continue current renal supportive measures. 2. Further management to be dependent on the clinical course. Job ID: [id number]
[2018-08-31 04:42] LABS: Anion Gap 13 mmol/L (10-20); BUN (Urea Nitrogen) 66 mg/dL (8.4-25.7); Calc. Creatinine Clearance 65 mL/min (70-130); Calcium 9.7 mg/dL (7.8-10.44); Carbon Dioxide 27 mmol/L (23-31); Chloride 111 mmol/L (98-107); Estimated GFR-MDRD 61; Glucose 111 mg/dL (83-110); Potassium 4.4 mmol/L (3.5-5.1); Sodium 147 mmol/L (136-145)
[2018-08-31 05:18] LABS: Anisocytosis SLIGHT = 6-15 cells (100X) (0-5/hpf); Band 18 % (5-11); Hemoglobin 11.1 g/dL (14.0-18.0); Lymphocytes 16 % (21-51); MDiff Complete? YES; Mean Corpuscular HGB CONC 32.1 g/dL (32.0-36.0); Mean Corpuscular Hemoglobin 31.6 pg (27.0-31.0); Mean Corpuscular Volume 98.4 fL (78.0-98.0); Mean Platelet Volume 8.7 fL (7.4-10.4); Monocytes 5 % (0-10); Neutrophil 61 % (42-75); Platelet Count 69 thou/uL (130-400); Platelet Morphology Comment Appears Decreased; RBC Distribution Width 15.1 % (11.5-14.5); White Blood Cell (WBC) Count 4.7 thou/uL (4.8-10.8)
--- NOTE | 2018-08-31 07:55 | RAD ---
PORTABLE CHEST: HISTORY: Respiratory distress. COMPARISON: Prior day's exam. FINDINGS: Postop sternotomy changes are again noted. Heart size is enlarged. Endotracheal and NG tubes have b een removed. Lungs appear clear of any infiltrates. IMPRESSION: Interval removal of the endotracheal and NG tubes. Otherwise, stable exam. POS: [facility]
[2018-08-31] MEDS: cycloSPORINE 0.05% Ophthalmic Droperette EA EYE SCH (09:00)
--- NOTE | 2018-08-31 09:34 | PRG ---
DATE OF SERVICE: 08/31/2018 SUBJECTIVE: He is awake, calm, but somewhat delusional. OBJECTIVE: VITAL SIGNS: Temperature 98.1, pulse 71, blood pressure 181/91, 24-hour intake 670, output 1870, weight 203 pounds. HEENT: Unremarkable. NECK: No JVD. CHEST: Clear. CARDIAC: S1 and S2, regular. ABDOMEN: Soft. EXTREMITIES: No edema. LABORATORY DATA: Sodium 147, potassium 4.4, chloride 111, CO2 of 27, BUN 66, creatinine 1.1, and glucose 111. White blood cell count 4.7, hematocrit 34.5, and platelet count 69. ASSESSMENT: 1. Status post pneumonia from influenza type B. 2. Status post acute respiratory failure requiring mechanical ventilation. 3. Mucus plugging. 4. ICU psychosis. PLAN: 1. Move out to the intermediate care unit. 2. Continue current supportive care. 3. Stop steroids and decrease insulin since the steroids will no longer be needed. Job ID: [id number]
[2018-08-31] MEDS: Amlodipine 10 MG TAB PO SCH (10:36)
[2018-08-31] MEDS: Famotidine 20 MG TAB PO SCH ×2 (10:36→22:00)
[2018-08-31] MEDS: Gabapentin 300 MG CAP PO SCH ×2 (10:36→22:00)
[2018-08-31] MEDS: Fish Oil 1,000 MG CAP PO SCH (10:37)
[2018-08-31] MEDS: Tamsulosin HCl 0.4 MG CAP PO SCH (10:37)
[2018-08-31] MEDS: Aspirin Chewable 81 MG TAB PO SCH (10:37)
[2018-08-31] MEDS: Carvedilol 25 MG TAB PO SCH ×2 (10:37→22:00)
[2018-08-31] MEDS: Multivitamin W/ Minerals 1 TAB PO SCH (10:37)
[2018-08-31] MEDS: Famotidine/PF 20 mg/2ml Vial SLOW IVP SCH ×2 (10:38→22:02)
[2018-08-31] MEDS: Cefepime 1 GM in Sodium Chloride 0.9% 100 ML IVPB SCH ×2 (10:39→21:55)
[2018-08-31] MEDS: Calcitriol 0.25 MCG CAP PO SCH (10:43)
[2018-08-31] MEDS: Cyanocobalamin (Vitamin B-12) 1,000 MCG TAB PO SCH (11:16)
[2018-08-31] MEDS: hydrALAZINE 10 MG TAB PO SCH ×2 (14:58→21:59)
--- NOTE | 2018-08-31 15:30 | PDOC.PN ---
- Subjective Encounter Start Date: 08/31/18 Encounter Start Time: 15:28 Subjective: rambling incoherently -: no new overnight events - Objective Resuscitation Status - Order Detail: 08/18/18 23:37 Resuscitation Status Routine Resuscitation Status: FULL: Full Resuscitation MAR Reviewed: Yes Vital Signs & Weight: Vital Signs (12 hours) Temp Pulse BP Pulse Ox 08/31/18 14:58 70 137/82 08/31/18 12:00 97.8 F 08/31/18 10:36 70 163/87 H 08/31/18 08:00 98.0 F 100 08/31/18 04:00 98.1 F Weight Admit Weight 205 lb 8 oz Weight 203 lb 6.4 oz Most Recent Monitor Data Heart Rate from ECG 70 NIBP 162/83 NIBP BP-Mean 109 Respiration from ECG 19 SpO2 99 I&O: 08/30/18 08/31/18 09/01/18 06:59 06:59 06:59 Intake Total 1267 670 281 Output Total 2300 5050 1845 [facility]1033 -1200 -994 Result Diagrams: 08/31/18 04:05 08/31/18 04:05 Additional Labs: Accuchecks 08/31/18 08/31/18 08/30/18 11:36 04:08 20:37 POC Glucose 92 103 115 H 08/30/18 16:39 POC Glucose 104 Laboratory Tests 08/18/18 08/23/18 08/27/18 17:19 04:34 04:09 Plt Count 87 L BUN Creatinine 2.61 H 1.86 H 08/29/18 08/29/18 08/30/18 05:01 05:01 04:32 Plt Count 80 L BUN 66 H 71 H Creatinine 1.13 1.14 08/30/18 08/31/18 08/31/18 04:32 04:05 04:05 Plt Count 76 L 69 L BUN 66 H Creatinine 1.14 Phys Exam - Physical Examination Constitutional: NAD garcia snot follow commands HEENT: PERRLA, moist MMs, sclera anicteric, oral pharynx no lesions Neck: no nodes, no JVD, supple, full ROM Respiratory: no wheezing, clear to auscultation bilateral Cardiovascular: RRR Gastrointestinal: soft, non-tender, no distention, positive bowel sounds Musculoskeletal: no edema, pulses present Neurological: moves all 4 limbs Psychiatric: normal affect Dx/Plan (1) Acute respiratory failure with hypoxia Code(s): J96.01 - ACUTE RESPIRATORY FAILURE WITH HYPOXIA Status: Acute Comment: Extubated 08/30/18 (2) Pneumonia Code(s): J18.9 - PNEUMONIA, UNSPECIFIED ORGANISM Status: Acute Qualifiers: Laterality: left Lung location: upper lobe of lung Comment: levofloxacin and cefepime (3) Influenza B Code(s): J10.1 - FLU DUE TO OTH IDENT INFLUENZA VIRUS W OTH RESP MANIFEST Status: Acute Comment: treated with Tamiflu (4) Hypernatremia Code(s): E87.0 - HYPEROSMOLALITY AND HYPERNATREMIA Status: Acute Comment: increase free water per dobhoff. monitor.improved (5) Thrombocytopenia Code(s): D69.6 - THROMBOCYTOPENIA, UNSPECIFIED Status: Acute Comment: stable counts (6) Chronic diastolic heart failure Code(s): I50.32 - CHRONIC DIASTOLIC (CONGESTIVE) HEART FAILURE Status: Chronic Comment: stable (7) Sepsis Code(s): A41.9 - SEPSIS, UNSPECIFIED ORGANISM Status: Resolved (8) CAD (coronary artery disease) Code(s): I25.10 - ATHSCL HEART DISEASE OF [place] CORONARY ARTERY W/O ANG PCTRS Status: Chronic Qualifiers: (9) Dyslipidemia Code(s): E78.5 - HYPERLIPIDEMIA, UNSPECIFIED Status: Chronic Comment: on statin (10) HTN (hypertension) Code(s): I10 - ESSENTIAL (PRIMARY) HYPERTENSION Status: Chronic Qualifiers: Comment: controlled (11) History of aortic valve replacement with bioprosthetic valve Code(s): Z95.3 - PRESENCE OF XENOGENIC HEART VALVE Status: Chronic - Plan PT/OT, respiratory therapy, incentive spirometry, DVT proph w/SCDs BP still high.add low dose hydralazine & monitor -: Clinically better. mainataining oxygenation. -: steroids.ABx per PCCM -: Ok to transfer Out of CCU.am labs -: sodium high again.increase free water . * . Review of Systems - Review of Systems Other: can not be reliable obtained due to confusion - Medications/Allergies Allergies/Adverse Reactions: Allergies Allergy/AdvReac Type Severity Reaction Status Date / Time Penicillins Allergy dyspnea Verified 09/13/17 21:11 zolpidem [From Ambien] Allergy "very Verified 09/13/17 21:11 loopy" Medications: Current Medications Acetaminophen (Tylenol) 650 mg PO Q4H PRN PRN Reason: Headache/Fever/Mild Pain (1-3) Acetaminophen (Tylenol) 650 mg IA Q4H PRN PRN Reason: Headache/Fever/Mild Pain (1-3) Amlodipine Besylate (Norvasc) 10 mg PO DAILY [facility] Last Admin: 08/31/18 10:36 Dose: 10 mg Aspirin (Aspirin Chewable) 81 mg PO DAILY [facility] Last Admin: 08/31/18 10:37 Dose: 81 mg Bisacodyl (Dulcolax) 10 mg PO DAILYPRN PRN PRN Reason: Constipation Calcitriol (Rocaltrol) 0.25 mcg PO DAILY [facility] Last Admin: 08/31/18 10:43 Dose: 0.25 mcg Carvedilol (Coreg) 25 mg PO BID [facility] Last Admin: 08/31/18 10:37 Dose: 25 mg Clonidine (Catapres) 0.1 mg PO Q4H PRN PRN Reason: SBP>160 Cyanocobalamin (Vitamin B-12) 500 mcg PO BID [facility] Last Admin: 08/31/18 11:16 Dose: 500 mcg Cyclosporine (Restasis) 0 ml EA EYE BID [facility] Last Admin: 08/31/18 09:00 Dose: Not Given Dextrose/Water (Dextrose 50%) 25 gm SLOW IVP PRN PRN PRN Reason: Hypoglycemia Famotidine (Pepcid) 20 mg SLOW IVP BID [facility] Last Admin: 08/31/18 10:38 Dose: Not Given Famotidine (Pepcid) 20 mg PO BID [facility] Last Admin: 08/31/18 10:36 Dose: 20 mg Fish Oil (Fish Oil) 1,000 mg PO DAILY [facility] Last Admin: 08/31/18 10:37 Dose: 1,000 mg Gabapentin (Neurontin) 600 mg PO BID [facility] Last Admin: 08/31/18 10:36 Dose: 600 mg Glucagon (Glucagon) 1 mg IM PRN PRN PRN Reason: Hypoglycemia Guaifenesin/Dextromethorphan (Robitussin Dm) 15 ml PO Q4H PRN PRN Reason: Cough Hydralazine HCl (Apresoline) 10 mg SLOW IVP Q4H PRN PRN Reason: BP >160/100 Last Admin: 08/28/18 11:12 Dose: 10 mg Hydralazine HCl (Apresoline) 10 mg PO TID [facility] Last Admin: 08/31/18 14:58 Dose: 10 mg Cefepime HCl 1 gm/ Sodium (Chloride) 100 mls @ 200 mls/hr IVPB Q12HR [facility] Last Admin: 08/31/18 10:39 Dose: 100 mls Dextrose/Water (D5w) 1,000 mls @ 0 mls/hr IV .Q0M PRN PRN Reason: Hypoglycemia Insulin Human NPH (Humulin N) 30 unit SC Q12HR [facility] Insulin Human Regular (Humulin R) 0 units SC .AGGRESSIVE SLIDING PRN PRN Reason: Aggressive Sliding Scale Last Admin: 08/29/18 10:31 Dose: 3 unit Iron/Minerals/Multivitamins (Theragran M) 1 tab PO DAILY [facility] Last Admin: 08/31/18 10:37 Dose: 1 tab Miscellaneous Medication (Pharmacy To Dose) 1 each IVPB PRN PRN PRN Reason: Pharmacy to dose Miscellaneous Medication (Ventilator Sedation Protocol) 1 each FS ONE [facility] Stop: 09/19/18 18:01 Discontinue Previous Narcotic Pain Medications And Benzodiazepines 1 each FS .ONE [facility] Stop: 09/19/18 18:34 Ondansetron HCl (Zofran Odt) 4 mg PO Q6H PRN PRN Reason: Nausea/Vomiting Ondansetron HCl (Zofran) 4 mg IVP Q6H PRN PRN Reason: Nausea/Vomiting Propofol (Diprivan) 1,000 mg IV INF PRN; Protocol PRN Reason: TO ACHIEVE GOAL RASS Stop: 09/19/18 18:34 Last Admin: 08/27/18 23:48 Dose: 1,000 mg Propofol (Diprivan Bolus) 20 mg IV Q5MIN PRN PRN Reason: BREAKTHROUGH AGITATION Stop: 09/19/18 18:34 Last Admin: 08/21/18 20:30 Dose: 20 mg Senna/Docusate Sodium (Senokot S) 2 tab PO BID PRN PRN Reason: Constipation Sodium Chloride (Flush - Normal Saline) 10 ml IVF Q12HR [facility] Last Admin: 08/31/18 10:38 Dose: 10 ml Sodium Chloride (Flush - Normal Saline) 10 ml IVF PRN PRN PRN Reason: Saline Flush Tamsulosin HCl (Flomax) 0.4 mg PO DAILY [facility] Last Admin: 08/31/18 10:37 Dose: 0.4 mg
--- NOTE | 2018-08-31 20:22 | PRG ---
DATE OF SERVICE: 08/31/2018 SUBJECTIVE: The patient noted with the following vital signs. OBJECTIVE: VITAL SIGNS: Blood pressure 132/67, pulse 70, respiratory rate of 18, O2 saturation of 94%. HEENT: Moist mucosa. No conjunctival injection. RESPIRATORY: Clear to auscultation. DIGESTIVE SYSTEM: Revealed positive bowel sounds. EXTREMITIES: No peripheral edema. IMPRESSION: 1. Acute respiratory failure. 2. Hypernatremia in the context of free water deficit. PLAN: 1. Increase free water repletion. 2. Further management will be dependent on the clinical course. Job ID: [id number]
[2018-09-01] MEDS: Cyanocobalamin (Vitamin B-12) 1,000 MCG TAB PO SCH ×3 (00:32→20:13)
[2018-09-01] MEDS: cycloSPORINE 0.05% Ophthalmic Droperette EA EYE SCH ×3 (00:32→20:18)
[2018-09-01 05:25] LABS: Anion Gap 12 mmol/L (10-20); BUN (Urea Nitrogen) 59 mg/dL (8.4-25.7); Calc. Creatinine Clearance 65 mL/min (70-130); Calcium 9.3 mg/dL (7.8-10.44); Carbon Dioxide 27 mmol/L (23-31); Chloride 112 mmol/L (98-107); Estimated GFR-MDRD 61; Glucose 79 mg/dL (83-110); Potassium 3.8 mmol/L (3.5-5.1); Sodium 147 mmol/L (136-145)
[2018-09-01 05:29] LABS: Band 10 % (5-11); Hemoglobin 11.5 g/dL (14.0-18.0); Lymphocytes 12 % (21-51); MDiff Complete? YES; Mean Corpuscular HGB CONC 31.9 g/dL (32.0-36.0); Mean Corpuscular Hemoglobin 31.6 pg (27.0-31.0); Mean Platelet Volume 9.5 fL (7.4-10.4); Monocytes 31 % (0-10); Neutrophil 46 % (42-75); Platelet Count 65 thou/uL (130-400); Platelet Morphology Comment Appears Decreased; RBC Distribution Width 15.2 % (11.5-14.5); Reactive Lymphocytes 1 % (0-10); Red Blood Cell (RBC) Count 3.64 mill/uL (4.70-6.10); White Blood Cell (WBC) Count 6.2 thou/uL (4.8-10.8)
--- NOTE | 2018-09-01 09:29 | PRG ---
DATE OF SERVICE: 09/01/2018 SUBJECTIVE: The patient is somewhat dysarthric this morning. Does not appear to be in any distress. OBJECTIVE: VITAL SIGNS: Temperature 97.8, pulse 70, respirations 18, O2 saturation 100% on room air, and blood pressure 105/70. HEENT: Unremarkable. NECK: No JVD. CHEST: Clear anteriorly. CARDIAC: S1 and S2. Regular.. ABDOMEN: Soft. EXTREMITIES: No edema. LABORATORY DATA: White blood cell count 6.2, hematocrit 36.1, and platelet count 65. Sodium 147, potassium 3.8, chloride 112, CO2 of 27, BUN 59, creatinine 1.1, glucose 79. ASSESSMENT: 1. Influenza with pneumonia. 2. Status post acute respiratory failure. 3. Continued encephalopathy. 4. Mild azotemia. 5. ICU psychosis. PLAN: Continue supportive care. His cefepime has been stopped because he completed 10 days. Main issue now is re-orientation and rehabilitative therapy. I think he still requires close nursing because of encephalopathy. Job ID: [id number]
[2018-09-01] MEDS: Cefepime 1 GM in Sodium Chloride 0.9% 100 ML IVPB SCH (09:30)
[2018-09-01] MEDS: Fish Oil 1,000 MG CAP PO SCH (09:30)
[2018-09-01] MEDS: Gabapentin 300 MG CAP PO SCH ×2 (09:31→20:15)
[2018-09-01] MEDS: Calcitriol 0.25 MCG CAP PO SCH (09:31)
[2018-09-01] MEDS: Tamsulosin HCl 0.4 MG CAP PO SCH (09:31)
[2018-09-01] MEDS: hydrALAZINE 10 MG TAB PO SCH ×3 (09:31→21:57)
[2018-09-01] MEDS: Amlodipine 10 MG TAB PO SCH (09:31)
[2018-09-01] MEDS: Multivitamin W/ Minerals 1 TAB PO SCH (09:31)
[2018-09-01] MEDS: Aspirin Chewable 81 MG TAB PO SCH (09:31)
[2018-09-01] MEDS: Carvedilol 25 MG TAB PO SCH ×2 (09:31→20:13)
[2018-09-01] MEDS: Famotidine/PF 20 mg/2ml Vial SLOW IVP SCH ×2 (09:32→20:19)
[2018-09-01] MEDS: Famotidine 20 MG TAB PO SCH ×2 (09:32→20:14)
--- NOTE | 2018-09-01 15:54 | PDOC.PN ---
- Subjective Encounter Start Date: 09/01/18 Encounter Start Time: 15:52 Subjective: feels ok but not able to foloow commands -: can not answer any Q straight - Objective Resuscitation Status - Order Detail: 08/18/18 23:37 Resuscitation Status Routine Resuscitation Status: FULL: Full Resuscitation MAR Reviewed: Yes Vital Signs & Weight: Vital Signs (12 hours) Temp Pulse Pulse Pulse Resp BP BP 09/01/18 15:27 98.8 F 70 20 09/01/18 13:29 74 71 112/64 135/79 09/01/18 11:16 72 09/01/18 10:37 98.0 F 72 18 09/01/18 09:31 70 09/01/18 07:35 09/01/18 07:14 97.8 F 70 18 09/01/18 04:22 97.8 F 76 14 BP Pulse Ox Pulse Ox Pulse Ox 09/01/18 15:27 132/62 100 09/01/18 13:29 94 L 100 09/01/18 11:16 09/01/18 10:37 108/61 100 09/01/18 09:31 09/01/18 07:35 100 09/01/18 07:14 105/70 98 09/01/18 04:22 104/57 L 95 Weight Admit Weight 205 lb 8 oz Weight 190 lb 12.8 oz Most Recent Monitor Data Heart Rate from ECG 70 NIBP 133/68 NIBP BP-Mean 89 Respiration from ECG 15 SpO2 97 I&O: 08/31/18 09/01/18 09/02/18 06:59 06:59 06:59 Intake Total 670 431 100 Output Total 1870 1815 650 Balance -5073 -4314 -550 Result Diagrams: 09/01/18 04:50 09/01/18 04:50 Additional Labs: Accuchecks 09/01/18 09/01/18 08/31/18 10:25 04:35 22:02 POC Glucose 89 77 76 08/31/18 16:21 POC Glucose 75 Laboratory Tests 08/18/18 08/28/18 08/29/18 17:19 04:30 05:01 Plt Count Sodium Creatinine 2.61 H 1.19 1.13 08/29/18 08/30/18 08/30/18 05:01 04:32 04:32 Plt Count 80 L 76 L Sodium 145 Creatinine 08/31/18 08/31/18 09/01/18 04:05 04:05 04:50 Plt Count 69 L Sodium 147 H 147 H Creatinine 1.14 09/01/18 04:50 Plt Count 65 L Sodium Creatinine Phys Exam - Physical Examination Constitutional: NAD food all over his mouth outside HEENT: PERRLA, moist MMs, sclera anicteric, oral pharynx no lesions Neck: no nodes, no JVD, supple, full ROM Respiratory: no wheezing, no rales, no rhonchi reduced at bases Cardiovascular: RRR, no significant murmur Gastrointestinal: soft, non-tender, no distention, positive bowel sounds Musculoskeletal: no edema, pulses present Neurological: non-focal, normal sensation, moves all 4 limbs Dx/Plan (1) Acute respiratory failure with hypoxia Code(s): J96.01 - ACUTE RESPIRATORY FAILURE WITH HYPOXIA Status: Acute Comment: Extubated 08/30/18 (2) Pneumonia Code(s): J18.9 - PNEUMONIA, UNSPECIFIED ORGANISM Status: Acute Qualifiers: Laterality: left Lung location: upper lobe of lung Comment: levofloxacin and cefepime (3) Influenza B Code(s): J10.1 - FLU DUE TO OTH IDENT INFLUENZA VIRUS W OTH RESP MANIFEST Status: Acute Comment: treated with Tamiflu (4) Hypernatremia Code(s): E87.0 - HYPEROSMOLALITY AND HYPERNATREMIA Status: Acute Comment: increase free water per dobhoff. monitor.improved (5) Thrombocytopenia Code(s): D69.6 - THROMBOCYTOPENIA, UNSPECIFIED Status: Acute Comment: stable counts (6) Chronic diastolic heart failure Code(s): I50.32 - CHRONIC DIASTOLIC (CONGESTIVE) HEART FAILURE Status: Chronic Comment: stable (7) Sepsis Code(s): A41.9 - SEPSIS, UNSPECIFIED ORGANISM Status: Resolved (8) CAD (coronary artery disease) Code(s): I25.10 - ATHSCL HEART DISEASE OF [place] CORONARY ARTERY W/O ANG PCTRS Status: Chronic Qualifiers: (9) Dyslipidemia Code(s): E78.5 - HYPERLIPIDEMIA, UNSPECIFIED Status: Chronic Comment: on statin (10) HTN (hypertension) Code(s): I10 - ESSENTIAL (PRIMARY) HYPERTENSION Status: Chronic Qualifiers: Comment: controlled (11) History of aortic valve replacement with bioprosthetic valve Code(s): Z95.3 - PRESENCE OF XENOGENIC HEART VALVE Status: Chronic - Plan PT/OT, respiratory therapy, incentive spirometry, out of bed/ambulate, DVT proph w/SCDs placement -: hemodynamically stable.cont supportive care -: reduce amlodipine as BP slightly low. cont BB,on hydralzine low dose -: no change otherwise.labs in am -: cont free water as Sodium still high.renal fx better.Platelets stable. * . Review of Systems - Review of Systems Other: can not be reliably obtained due to confusion - Medications/Allergies Allergies/Adverse Reactions: Allergies Allergy/AdvReac Type Severity Reaction Status Date / Time Penicillins Allergy dyspnea Verified 09/13/17 21:11 zolpidem [From Ambien] Allergy "very Verified 09/13/17 21:11 loopy" Medications: Current Medications Acetaminophen (Tylenol) 650 mg PO Q4H PRN PRN Reason: Headache/Fever/Mild Pain (1-3) Acetaminophen (Tylenol) 650 mg ID Q4H PRN PRN Reason: Headache/Fever/Mild Pain (1-3) Amlodipine Besylate (Norvasc) 5 mg PO DAILY [facility] Last Admin: 09/01/18 09:31 Dose: 5 mg Aspirin (Aspirin Chewable) 81 mg PO DAILY [facility] Last Admin: 09/01/18 09:31 Dose: 81 mg Bisacodyl (Dulcolax) 10 mg PO DAILYPRN PRN PRN Reason: Constipation Calcitriol (Rocaltrol) 0.25 mcg PO DAILY [facility] Last Admin: 09/01/18 09:31 Dose: 0.25 mcg Carvedilol (Coreg) 25 mg PO BID [facility] Last Admin: 09/01/18 09:31 Dose: 25 mg Clonidine (Catapres) 0.1 mg PO Q4H PRN PRN Reason: SBP>160 Cyanocobalamin (Vitamin B-12) 500 mcg PO BID [facility] Last Admin: 09/01/18 09:31 Dose: 500 mcg Cyclosporine (Restasis) 0 ml EA EYE BID [facility] Last Admin: 09/01/18 09:33 Dose: 0.4 ml Dextrose/Water (Dextrose 50%) 25 gm SLOW IVP PRN PRN PRN Reason: Hypoglycemia Famotidine (Pepcid) 20 mg SLOW IVP BID [facility] Last Admin: 09/01/18 09:32 Dose: Not Given Famotidine (Pepcid) 20 mg PO BID [facility] Last Admin: 09/01/18 09:32 Dose: 20 mg Fish Oil (Fish Oil) 1,000 mg PO DAILY [facility] Last Admin: 09/01/18 09:30 Dose: 1,000 mg Gabapentin (Neurontin) 600 mg PO BID [facility] Last Admin: 09/01/18 09:31 Dose: 600 mg Glucagon (Glucagon) 1 mg IM PRN PRN PRN Reason: Hypoglycemia Guaifenesin/Dextromethorphan (Robitussin Dm) 15 ml PO Q4H PRN PRN Reason: Cough Hydralazine HCl (Apresoline) 10 mg SLOW IVP Q4H PRN PRN Reason: BP >160/100 Last Admin: 08/28/18 11:12 Dose: 10 mg Hydralazine HCl (Apresoline) 10 mg PO TID [facility] Last Admin: 09/01/18 09:31 Dose: 10 mg Dextrose/Water (D5w) 1,000 mls @ 0 mls/hr IV .Q0M PRN PRN Reason: Hypoglycemia Insulin Human NPH (Humulin N) 30 unit SC Q12HR [facility] Insulin Human Regular (Humulin R) 0 units SC .AGGRESSIVE SLIDING PRN PRN Reason: Aggressive Sliding Scale Last Admin: 08/29/18 10:31 Dose: 3 unit Iron/Minerals/Multivitamins (Theragran M) 1 tab PO DAILY [facility] Last Admin: 09/01/18 09:31 Dose: 1 tab Ondansetron HCl (Zofran Odt) 4 mg PO Q6H PRN PRN Reason: Nausea/Vomiting Ondansetron HCl (Zofran) 4 mg IVP Q6H PRN PRN Reason: Nausea/Vomiting Senna/Docusate Sodium (Senokot S) 2 tab PO BID PRN PRN Reason: Constipation Sodium Chloride (Flush - Normal Saline) 10 ml IVF Q12HR [facility] Last Admin: 09/01/18 09:33 Dose: 10 ml Sodium Chloride (Flush - Normal Saline) 10 ml IVF PRN PRN PRN Reason: Saline Flush Tamsulosin HCl (Flomax) 0.4 mg PO DAILY [facility] Last Admin: 09/01/18 09:31 Dose: 0.4 mg
[2018-09-02 05:46] LABS: Anisocytosis SLIGHT = 6-15 cells (100X) (0-5/hpf); Band 14 % (5-11); Elliptocytes SLIGHT = 2-5 cells (100X) (0-1/hpf); Hemoglobin 10.6 g/dL (14.0-18.0); Lymphocytes 13 % (21-51); MDiff Complete? YES; Mean Corpuscular HGB CONC 32.1 g/dL (32.0-36.0); Mean Corpuscular Hemoglobin 31.8 pg (27.0-31.0); Mean Corpuscular Volume 99.2 fL (78.0-98.0); Mean Platelet Volume 8.8 fL (7.4-10.4); Monocytes 21 % (0-10); Neutrophil 52 % (42-75); Ovalocytes SLIGHT = 2-5 cells (100X) (0-1/hpf); Platelet Count 72 thou/uL (130-400); Platelet Morphology Comment Appears Decreased; RBC Distribution Width 14.9 % (11.5-14.5); Red Blood Cell (RBC) Count 3.34 mill/uL (4.70-6.10)
[2018-09-02 05:59] LABS: Anion Gap 14 mmol/L (10-20); BUN (Urea Nitrogen) 55 mg/dL (8.4-25.7); Calc. Creatinine Clearance 50 mL/min (70-130); Calcium 9.4 mg/dL (7.8-10.44); Carbon Dioxide 24 mmol/L (23-31); Chloride 115 mmol/L (98-107); Estimated GFR-MDRD 51; Glucose 90 mg/dL (83-110); Potassium 3.9 mmol/L (3.5-5.1); Sodium 149 mmol/L (136-145)
[2018-09-02 09:16] LABS: Actual Bicarbonate (HCO3a) 25.1 mEq/L (22-28); Base Excess (BEa) 1.5 mEq/L (-2.0 to +3.0); CO2 Tension 36.1 mmHg (35.0-45.0); Calcium, Ionized 1.28 mmol/L (1.12-1.30); Carboxyhemoglobin (COHb) 1.2 gm% (0.0-3.0); Hemoglobin (Hb) 11.6 g/dL (14.0-18.0); O2 Tension (PaO2) 76.3 mmHg (> 60.0); Potassium - ABG Lab 3.97 mmol/L (3.70-5.30); pH, Arterial 7.46 (7.35-7.45)
[2018-09-02 09:19] LABS: Puncture Site RBA
[2018-09-02 09:20] LABS: ALV-art Gradient 78.215 (0-20)
--- NOTE | 2018-09-02 09:38 | PRG ---
DATE OF SERVICE: 09/02/2018 SUBJECTIVE: He is very lethargic today, difficult to get any reaction with, but does not appear to be in any distress. OBJECTIVE: VITAL SIGNS: Temperature is 98.7, pulse 70, blood pressure 131/75, and O2 saturation 97% on 2 L. HEENT: Remarkable for dry oral mucous membranes. NECK: No JVD. CHEST: Clear, but distant breath sounds. CARDIAC: S1 and S2. Regular. ABDOMEN: Soft. EXTREMITIES: No edema. LABORATORY DATA: Demonstrate a sodium of 149, BUN of 55, creatinine 1.3, and a white blood cell count of 4, hematocrit of 33.2, and a platelet count of 72. ASSESSMENT: 1. Persistent and worsening encephalopathy. 2. Recent pneumonia from influenza. 3. Azotemia. 4. Hypernatremia. PLAN: 1. Add D5W for at least today. 2. Start thiamine. 3. Check ABG. 4. Leave in [facility] for the time being. Job ID: [id number]
[2018-09-02] MEDS: Aspirin Chewable 81 MG TAB PO SCH (10:07)
[2018-09-02] MEDS: Calcitriol 0.25 MCG CAP PO SCH (10:07)
[2018-09-02] MEDS: Carvedilol 25 MG TAB PO SCH ×3 (10:07→21:07)
[2018-09-02] MEDS: Amlodipine 10 MG TAB PO SCH (10:07)
[2018-09-02] MEDS: Cyanocobalamin (Vitamin B-12) 1,000 MCG TAB PO SCH ×2 (10:07→20:38)
[2018-09-02] MEDS: Multivitamin W/ Minerals 1 TAB PO SCH (10:08)
[2018-09-02] MEDS: Gabapentin 300 MG CAP PO SCH ×2 (10:08→20:37)
[2018-09-02] MEDS: Famotidine/PF 20 mg/2ml Vial SLOW IVP SCH ×2 (10:08→20:39)
[2018-09-02] MEDS: Famotidine 20 MG TAB PO SCH ×2 (10:08→20:38)
[2018-09-02] MEDS: hydrALAZINE 10 MG TAB PO SCH ×3 (10:08→20:37)
[2018-09-02] MEDS: Fish Oil 1,000 MG CAP PO SCH (10:08)
[2018-09-02] MEDS: Tamsulosin HCl 0.4 MG CAP PO SCH (10:09)
[2018-09-02] MEDS ORDERED: Clopidogrel Bisulfate 75 MG TAB ONE (10:11)
[2018-09-02] MEDS: Apixaban 5 MG TAB PO SCH ×2 (10:13→20:38)
[2018-09-02] MEDS: Dextrose 5% in Water 1,000 ML IV SCH ×2 (10:13→20:36)
--- NOTE | 2018-09-02 12:38 | CT ---
CT HEAD NONCONTRAST: History: Altered mental status. Comparison: 09-15-13, and 01-27-12 FINDINGS: There is no evidence of acute intracranial hemorrhage or infarct. 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 Now overlying the left posterior temporal and parietal cortex, a subdural fluid collection now measur es up to 0.9 cm depth with minimal effacement of the underlying cortex. It is slightly hyperdense com pared to CSF. No hyperdense fluid is evident. Minimal leftward displacement of the septum pellucidum may be present but favored to not be related to the subdural fluid collection. Prominent calcification in the arterial structures. Fluid layers in the left side of the sphenoid sin us. IMPRESSION: 1. 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 It is unlikely the source of any acute clinical symptoms. 2. Atherosclerosis. POS: MASHA
[2018-09-02] MEDS: cycloSPORINE 0.05% Ophthalmic Droperette EA EYE SCH ×2 (14:20→20:37)
--- NOTE | 2018-09-02 16:05 | PDOC.PN ---
- Subjective Encounter Start Date: 09/02/18 Encounter Start Time: 16:04 Subjective: confused.poor eating - Objective Resuscitation Status - Order Detail: 08/18/18 23:37 Resuscitation Status Routine Resuscitation Status: FULL: Full Resuscitation Vital Signs & Weight: Vital Signs (12 hours) Temp Pulse Pulse Pulse Resp BP BP 09/02/18 14:47 80 92 116/63 150/63 H 09/02/18 12:00 98.7 F 63 20 09/02/18 10:08 70 09/02/18 10:07 70 09/02/18 07:18 09/02/18 07:15 98.7 F 70 18 BP Pulse Ox Pulse Ox Pulse Ox 09/02/18 14:47 98 100 09/02/18 12:00 139/77 99 09/02/18 10:08 09/02/18 10:07 09/02/18 07:18 97 09/02/18 07:15 131/75 97 Weight Admit Weight 205 lb 8 oz Weight 186 lb 8 oz Most Recent Monitor Data Heart Rate from ECG 70 NIBP 133/68 NIBP BP-Mean 89 Respiration from ECG 15 SpO2 97 I&O: 09/01/18 09/02/18 09/03/18 06:59 06:59 06:59 Intake Total 431 350 Output Total 1815 2175 Balance -1384 -1821 Result Diagrams: 09/02/18 04:28 09/02/18 04:28 Additional Labs: Accuchecks 09/02/18 09/02/18 09/01/18 11:50 04:38 22:54 POC Glucose 115 H 90 87 09/01/18 16:24 POC Glucose 84 Microbiology 08/24/18 08:25 Bronchial Washing Respiratory Culture - Final 08/20/18 17:55 Bronchial Washing - Aqueous Fluid Respiratory Culture - Final 08/18/18 19:15 Urine voided Urine Culture - Final NO GROWTH AT 48 HOURS 08/18/18 18:32 Venous blood - Right Hand Blood Culture - Final NO GROWTH IN 5 DAYS 08/18/18 18:03 Venous blood - Right Hand Blood Culture - Final NO GROWTH IN 5 DAYS Laboratory Tests 08/25/18 08/27/18 08/28/18 03:30 04:09 04:30 Plt Count 87 L Sodium 145 Creatinine 1.32 H 1.19 08/29/18 08/29/18 08/30/18 05:01 05:01 04:32 Plt Count 80 L Sodium 136 Creatinine 1.14 08/31/18 09/01/18 09/01/18 04:05 04:50 04:50 Plt Count 65 L Sodium 147 H 147 H Creatinine 1.14 09/02/18 09/02/18 04:28 04:28 Plt Count 72 L Sodium 149 H Creatinine 1.35 H Radiology Reviewed by me: Yes (CT-chr SDH) Phys Exam - Physical Examination Constitutional: NAD confused and somnolent. garcia snot follow any commands dry mucosa Neck: no nodes, no JVD, supple, full ROM Respiratory: no wheezing, no rales, no rhonchi Cardiovascular: RRR, no significant murmur Gastrointestinal: soft, non-tender, no distention, positive bowel sounds Musculoskeletal: no edema, pulses present Neurological: moves all 4 limbs Deviation from normal: not oriented at all Skin: no rash Dx/Plan (1) Encephalopathy acute Code(s): G93.40 - ENCEPHALOPATHY, UNSPECIFIED Status: Acute Comment: likley metabolic. (2) Acute respiratory failure with hypoxia Code(s): J96.01 - ACUTE RESPIRATORY FAILURE WITH HYPOXIA Status: Acute Comment: Extubated 08/30/18 (3) Pneumonia Code(s): J18.9 - PNEUMONIA, UNSPECIFIED ORGANISM Status: Acute Qualifiers: Laterality: left Lung location: upper lobe of lung Comment: levofloxacin and cefepime (4) Influenza B Code(s): J10.1 - FLU DUE TO OTH IDENT INFLUENZA VIRUS W OTH RESP MANIFEST Status: Acute Comment: treated with Tamiflu (5) Hypernatremia Code(s): E87.0 - HYPEROSMOLALITY AND HYPERNATREMIA Status: Acute Comment: increase free water per dobhoff. monitor.improved (6) Thrombocytopenia Code(s): D69.6 - THROMBOCYTOPENIA, UNSPECIFIED Status: Acute Comment: stable counts (7) Chronic diastolic heart failure Code(s): I50.32 - CHRONIC DIASTOLIC (CONGESTIVE) HEART FAILURE Status: Chronic Comment: stable (8) Sepsis Code(s): A41.9 - SEPSIS, UNSPECIFIED ORGANISM Status: Resolved (9) CAD (coronary artery disease) Code(s): I25.10 - ATHSCL HEART DISEASE OF [place] CORONARY ARTERY W/O ANG PCTRS Status: Chronic Qualifiers: (10) Dyslipidemia Code(s): E78.5 - HYPERLIPIDEMIA, UNSPECIFIED Status: Chronic Comment: on statin (11) HTN (hypertension) Code(s): I10 - ESSENTIAL (PRIMARY) HYPERTENSION Status: Chronic Qualifiers: Comment: controlled (12) History of aortic valve replacement with bioprosthetic valve Code(s): Z95.3 - PRESENCE OF XENOGENIC HEART VALVE Status: Chronic - Plan DVT proph w/SCDs sodium still high.cghange IVF to Dextrose .repeat labs -: Brain CT shows Chr SDH w/o anything acute -: suspect metabolic encephalopathy.fall & aspiration precautions -: HD stable.BP controlled better -: monitor clinically.Baseline Reported NL cognition * . Review of Systems - Review of Systems Other: can not be obtained due to confusion - Medications/Allergies Allergies/Adverse Reactions: Allergies Allergy/AdvReac Type Severity Reaction Status Date / Time Penicillins Allergy dyspnea Verified 09/13/17 21:11 zolpidem [From Ambien] Allergy "very Verified 09/13/17 21:11 loopy" Medications: Current Medications Acetaminophen (Tylenol) 650 mg PO Q4H PRN PRN Reason: Headache/Fever/Mild Pain (1-3) Acetaminophen (Tylenol) 650 mg [place] Q4H PRN PRN Reason: Headache/Fever/Mild Pain (1-3) Amlodipine Besylate (Norvasc) 5 mg PO DAILY [facility] Last Admin: 09/02/18 10:07 Dose: 5 mg Apixaban (Eliquis) 5 mg PO BID [facility] Last Admin: 09/02/18 10:13 Dose: 5 mg Aspirin (Aspirin Chewable) 81 mg PO DAILY [facility] Last Admin: 09/02/18 10:07 Dose: 81 mg Bisacodyl (Dulcolax) 10 mg PO DAILYPRN PRN PRN Reason: Constipation Calcitriol (Rocaltrol) 0.25 mcg PO DAILY [facility] Last Admin: 09/02/18 10:07 Dose: 0.25 mcg Carvedilol (Coreg) 25 mg PO BID [facility] Last Admin: 09/02/18 10:07 Dose: 25 mg Cyanocobalamin (Vitamin B-12) 500 mcg PO BID [facility] Last Admin: 09/02/18 10:07 Dose: 500 mcg Cyclosporine (Restasis) 0 ml EA EYE BID [facility] Last Admin: 09/02/18 14:20 Dose: Not Given Dextrose/Water (Dextrose 50%) 25 gm SLOW IVP PRN PRN PRN Reason: Hypoglycemia Famotidine (Pepcid) 20 mg SLOW IVP BID [facility] Last Admin: 09/02/18 10:08 Dose: Not Given Famotidine (Pepcid) 20 mg PO BID [facility] Last Admin: 09/02/18 10:08 Dose: 20 mg Fish Oil (Fish Oil) 1,000 mg PO DAILY [facility] Last Admin: 09/02/18 10:08 Dose: 1,000 mg Gabapentin (Neurontin) 600 mg PO BID [facility] Last Admin: 09/02/18 10:08 Dose: 600 mg Glucagon (Glucagon) 1 mg IM PRN PRN PRN Reason: Hypoglycemia Guaifenesin/Dextromethorphan (Robitussin Dm) 15 ml PO Q4H PRN PRN Reason: Cough Hydralazine HCl (Apresoline) 10 mg SLOW IVP Q4H PRN PRN Reason: BP >160/100 Last Admin: 08/28/18 11:12 Dose: 10 mg Hydralazine HCl (Apresoline) 10 mg PO TID [facility] Last Admin: 09/02/18 10:08 Dose: 10 mg Dextrose/Water (D5w) 1,000 mls @ 0 mls/hr IV .Q0M PRN PRN Reason: Hypoglycemia Dextrose/Water (D5w) 1,000 mls @ 100 mls/hr IV .Q10H [facility] Last Admin: 09/02/18 10:13 Dose: 1,000 mls Thiamine HCl 100 mg/ Sodium (Chloride) 51 mls @ 100 mls/hr IVPB 1100 [facility] Stop: 09/05/18 11:31 Last Admin: 09/02/18 12:00 Dose: 51 mls Insulin Human NPH (Humulin N) 30 unit SC Q12HR [facility] Insulin Human Regular (Humulin R) 0 units SC .AGGRESSIVE SLIDING PRN PRN Reason: Aggressive Sliding Scale Last Admin: 08/29/18 10:31 Dose: 3 unit Iron/Minerals/Multivitamins (Theragran M) 1 tab PO DAILY [facility] Last Admin: 09/02/18 10:08 Dose: 1 tab Ondansetron HCl (Zofran Odt) 4 mg PO Q6H PRN PRN Reason: Nausea/Vomiting Ondansetron HCl (Zofran) 4 mg IVP Q6H PRN PRN Reason: Nausea/Vomiting Senna/Docusate Sodium (Senokot S) 2 tab PO BID PRN PRN Reason: Constipation Sodium Chloride (Flush - Normal Saline) 10 ml IVF Q12HR [facility] Last Admin: 09/02/18 10:09 Dose: 10 ml Sodium Chloride (Flush - Normal Saline) 10 ml IVF PRN PRN PRN Reason: Saline Flush Tamsulosin HCl (Flomax) 0.4 mg PO DAILY [facility] Last Admin: 09/02/18 10:09 Dose: 0.4 mg
[2018-09-02] MEDS ORDERED: Carvedilol 6.25 MG TAB PO SCH (21:15)
[2018-09-03 05:26] LABS: Anion Gap 13 mmol/L (10-20); BUN (Urea Nitrogen) 37 mg/dL (8.4-25.7); Calc. Creatinine Clearance 57 mL/min (70-130); Calcium 8.7 mg/dL (7.8-10.44); Carbon Dioxide 24 mmol/L (23-31); Chloride 110 mmol/L (98-107); Estimated GFR-MDRD 59; Glucose 187 mg/dL (83-110); Potassium 3.6 mmol/L (3.5-5.1); Sodium 143 mmol/L (136-145)
[2018-09-03 05:29] LABS: Band 1 % (5-11); Hemoglobin 10.8 g/dL (14.0-18.0); Lymphocytes 14 % (21-51); MDiff Complete? YES; Mean Corpuscular HGB CONC 32.1 g/dL (32.0-36.0); Mean Corpuscular Hemoglobin 31.6 pg (27.0-31.0); Mean Corpuscular Volume 98.5 fL (78.0-98.0); Monocytes 10 % (0-10); Neutrophil 73 % (42-75); Platelet Count 74 thou/uL (130-400); Platelet Morphology Comment Appears Adequate; RBC Distribution Width 14.8 % (11.5-14.5); Reactive Lymphocytes 2 % (0-10); Red Blood Cell (RBC) Count 3.42 mill/uL (4.70-6.10); White Blood Cell (WBC) Count 4.7 thou/uL (4.8-10.8)
--- NOTE | 2018-09-03 08:22 | PRG ---
DATE OF SERVICE: 09/02/2018 SUBJECTIVE: The patient was noted with the following vital signs. OBJECTIVE: VITAL SIGNS: Afebrile, temperature 99.4, pulse 70, respiratory rate of 22, O2 saturation 100%, and blood pressure 156/77. HEENT: Unremarkable. CARDIOVASCULAR: First and second heart sounds were heard. RESPIRATORY: Clear to auscultation. DIGESTIVE: Revealed a benign abdomen. Positive bowel sounds. EXTREMITIES: No peripheral edema. SKIN: No new gross rash. LABORATORY INVESTIGATION: Significant for sodium of 149. IMPRESSION: 1. Hypernatremia in the context of free water deficit. 2. Chronic kidney disease stage 3. PLAN: We will increase the patient's free water supplementation and monitor the sodium level. Job ID: [id number]
--- NOTE | 2018-09-03 09:41 | PRG ---
DATE OF SERVICE: 09/03/2018 SUBJECTIVE: The patient is a little more awake than yesterday. He has a ton of secretions in the back of his throat and he is making gurgling noises. OBJECTIVE: VITAL SIGNS: Temperature 98.8, pulse 70, respirations 21, O2 saturation 100% on 2 L, and blood pressure 135/76. HEENT: Unremarkable except for the copious amount of mucus in the back of his throat. NECK: No JVD. LUNGS: Coarse rhonchi. CARDIAC: S1 and S2, regular. ABDOMEN: Soft. EXTREMITIES: No edema. LABORATORY DATA: White blood cell count 4.7, hematocrit 33.7, and platelet count 74. Sodium 143, potassium 3.6, chloride 110, CO2 of 24, BUN 37, creatinine 1.2, and glucose 187. DIAGNOSTIC DATA: Brain CT from yesterday demonstrated a chronic left subdural that was felt unlikely to be source of any altered mental status. ASSESSMENT: 1. Status post influenza type B with pneumonia. 2. Status post respiratory failure. 3. Persistent encephalopathy. PLAN: 1. Nasotracheal suctioning to get secretions of the back of his throat. 2. Increase activity as tolerated. 3. May need to consider Dobhoff tube and nasogastric tube feeding. Job ID: [id number]
[2018-09-03] MEDS: Dextrose 5% in Water 1,000 ML IV SCH ×2 (10:01→17:36)
[2018-09-03] MEDS: Amlodipine 10 MG TAB PO SCH (10:01)
[2018-09-03] MEDS: Famotidine/PF 20 mg/2ml Vial SLOW IVP SCH ×2 (10:02→21:29)
[2018-09-03] MEDS: Fish Oil 1,000 MG CAP PO SCH (10:02)
[2018-09-03] MEDS: Aspirin Chewable 81 MG TAB PO SCH (10:03)
[2018-09-03] MEDS: Calcitriol 0.25 MCG CAP PO SCH (10:03)
[2018-09-03] MEDS: Carvedilol 25 MG TAB PO SCH ×2 (10:03→21:28)
[2018-09-03] MEDS: Famotidine 20 MG TAB PO SCH ×2 (10:03→21:28)
[2018-09-03] MEDS: Cyanocobalamin (Vitamin B-12) 1,000 MCG TAB PO SCH ×2 (10:04→21:28)
[2018-09-03] MEDS: Gabapentin 300 MG CAP PO SCH ×2 (10:05→21:28)
[2018-09-03] MEDS: Multivitamin W/ Minerals 1 TAB PO SCH (10:05)
[2018-09-03] MEDS: Tamsulosin HCl 0.4 MG CAP PO SCH (10:05)
[2018-09-03] MEDS: hydrALAZINE 10 MG TAB PO SCH ×3 (10:05→21:28)
[2018-09-03] MEDS: cycloSPORINE 0.05% Ophthalmic Droperette EA EYE SCH ×2 (11:26→21:50)
--- NOTE | 2018-09-03 19:26 | PDOC.PN ---
- Subjective Encounter Start Date: 09/06/18 Encounter Start Time: 16:26 Subjective: ENTERED IN ERROR - Objective Resuscitation Status - Order Detail: 08/18/18 23:37 Resuscitation Status Routine Resuscitation Status: FULL: Full Resuscitation Vital Signs & Weight: Vital Signs (12 hours) Temp Pulse Pulse Pulse Resp BP BP 09/03/18 17:25 71 09/03/18 15:11 98.4 F 71 20 09/03/18 13:30 72 70 105/64 134/65 09/03/18 11:16 98.8 F 70 20 09/03/18 10:05 70 09/03/18 10:01 70 09/03/18 07:27 98.8 F 70 21 H BP Pulse Ox Pulse Ox Pulse Ox 09/03/18 17:25 09/03/18 15:11 112/62 100 09/03/18 13:30 100 99 09/03/18 11:16 128/65 100 09/03/18 10:05 09/03/18 10:01 09/03/18 07:27 135/76 100 Weight Admit Weight 205 lb 8 oz Weight 185 lb 8 oz Most Recent Monitor Data Heart Rate from ECG 70 NIBP 133/68 NIBP BP-Mean 89 Respiration from ECG 15 SpO2 97 I&O: 09/02/18 09/03/18 09/04/18 06:59 06:59 06:59 Intake Total 350 2362 1500 Output Total 2175 1125 550 Balance -1825 1237 950 Result Diagrams: 09/06/18 04:54 09/06/18 04:54 Additional Labs: Accuchecks 09/03/18 09/03/18 09/03/18 16:16 10:26 05:22 POC Glucose 168 H 178 H 169 H 09/03/18 00:48 POC Glucose 172 H Dx/Plan - Plan * .
--- NOTE | 2018-09-03 19:30 | PDOC.PN ---
- Subjective Encounter Start Date: 09/03/18 Encounter Start Time: 19:28 Subjective: confused - Objective Resuscitation Status - Order Detail: 08/18/18 23:37 Resuscitation Status Routine Resuscitation Status: FULL: Full Resuscitation Vital Signs & Weight: Vital Signs (12 hours) Temp Pulse Pulse Pulse Resp BP BP 09/03/18 17:25 71 09/03/18 15:11 98.4 F 71 20 09/03/18 13:30 72 70 105/64 134/65 09/03/18 11:16 98.8 F 70 20 09/03/18 10:05 70 09/03/18 10:01 70 BP Pulse Ox Pulse Ox Pulse Ox 09/03/18 17:25 09/03/18 15:11 112/62 100 09/03/18 13:30 100 99 09/03/18 11:16 128/65 100 09/03/18 10:05 09/03/18 10:01 Weight Admit Weight 205 lb 8 oz Weight 185 lb 8 oz Most Recent Monitor Data Heart Rate from ECG 70 NIBP 133/68 NIBP BP-Mean 89 Respiration from ECG 15 SpO2 97 I&O: 09/02/18 09/03/18 09/04/18 06:59 06:59 06:59 Intake Total 350 2362 1500 Output Total 2175 1125 550 Balance -1825 1237 950 Result Diagrams: 09/03/18 04:23 09/03/18 04:22 Additional Labs: Accuchecks 09/03/18 09/03/18 09/03/18 16:16 10:26 05:22 POC Glucose 168 H 178 H 169 H 09/03/18 00:48 POC Glucose 172 H Phys Exam - Physical Examination HEENT: PERRLA, moist MMs, sclera anicteric, TM's clear, oral pharynx no lesions , 2+ tonsils Neck: no nodes, no JVD, supple, full ROM Respiratory: no wheezing, no rales Cardiovascular: RRR, no significant murmur Gastrointestinal: soft, non-tender, no distention, positive bowel sounds Musculoskeletal: edema present confused Dx/Plan (1) Acute respiratory failure with hypoxia Code(s): J96.01 - ACUTE RESPIRATORY FAILURE WITH HYPOXIA Status: Acute Comment: Extubated 08/30/18 (2) Acute worsening of stage 3 chronic kidney disease Code(s): N18.3 - CHRONIC KIDNEY DISEASE, STAGE 3 (MODERATE) Status: Acute Comment: reasolved (3) Encephalopathy acute Code(s): G93.40 - ENCEPHALOPATHY, UNSPECIFIED Status: Acute Comment: likley metabolic. (4) Hypernatremia Code(s): E87.0 - HYPEROSMOLALITY AND HYPERNATREMIA Status: Acute Comment: increase free water per dobhoff.resolved (5) Influenza B Code(s): J10.1 - FLU DUE TO OTH IDENT INFLUENZA VIRUS W OTH RESP MANIFEST Status: Acute Comment: treated with Tamiflu (6) Pneumonia Code(s): J18.9 - PNEUMONIA, UNSPECIFIED ORGANISM Status: Acute Qualifiers: Laterality: left Lung location: upper lobe of lung Comment: levofloxacin and cefepime - Plan cont current plan of care * .
--- NOTE | 2018-09-03 19:45 | PRG ---
DATE OF SERVICE: 09/03/2018 SUBJECTIVE: The patient was noted with the following vital signs. OBJECTIVE: VITAL SIGNS: Afebrile, temperature 98.4, pulse 71, respiratory rate of 20, O2 saturation 100%, and blood pressure 112/62. HEENT: Unremarkable. CARDIOVASCULAR SYSTEM: First and second heart sounds were heard. RESPIRATORY SYSTEM: Clear to auscultation. DIGESTIVE SYSTEM: Revealed a benign abdomen. EXTREMITIES: No peripheral edema. SKIN: No new gross rash. LYMPHATICS: No peripheral lymphadenopathy. IMPRESSION: Hypernatremia in the context of free water deficit. PLAN: Continue free water repletion. Job ID: [id number]
[2018-09-04] MEDS: Dextrose 5% in Water 1,000 ML IV SCH ×3 (01:42→21:14)
[2018-09-04 05:36] LABS: Anion Gap 13 mmol/L (10-20); BUN (Urea Nitrogen) 30 mg/dL (8.4-25.7); Band 1 % (5-11); Calc. Creatinine Clearance 58 mL/min (70-130); Calcium 8.5 mg/dL (7.8-10.44); Carbon Dioxide 23 mmol/L (23-31); Chloride 105 mmol/L (98-107); Eosinophils 2 % (0-10); Estimated GFR-MDRD 59; Glucose 168 mg/dL (83-110); Hemoglobin 11.4 g/dL (14.0-18.0); Lymphocytes 16 % (21-51); MDiff Complete? YES; Mean Corpuscular HGB CONC 32.2 g/dL (32.0-36.0); Mean Corpuscular Hemoglobin 31.5 pg (27.0-31.0); Mean Corpuscular Volume 97.7 fL (78.0-98.0); Mean Platelet Volume 9.5 fL (7.4-10.4); Monocytes 19 % (0-10); Neutrophil 62 % (42-75); Platelet Count 74 thou/uL (130-400); Platelet Morphology Comment Appears Decreased; Potassium 3.6 mmol/L (3.5-5.1); RBC Distribution Width 14.9 % (11.5-14.5); Red Blood Cell (RBC) Count 3.63 mill/uL (4.70-6.10); Sodium 137 mmol/L (136-145); White Blood Cell (WBC) Count 4.9 thou/uL (4.8-10.8)
[2018-09-04] MEDS: hydrALAZINE 10 MG TAB PO SCH ×4 (10:54→22:34)
[2018-09-04] MEDS: Tamsulosin HCl 0.4 MG CAP PO SCH ×2 (10:54→18:04)
[2018-09-04] MEDS: Carvedilol 25 MG TAB PO SCH ×3 (10:54→22:34)
[2018-09-04] MEDS: Gabapentin 300 MG CAP PO SCH ×3 (10:54→22:34)
[2018-09-04] MEDS: Amlodipine 10 MG TAB PO SCH ×2 (10:55→18:03)
[2018-09-04] MEDS: Aspirin Chewable 81 MG TAB PO SCH ×2 (10:55→18:03)
[2018-09-04] MEDS: Famotidine/PF 20 mg/2ml Vial SLOW IVP SCH ×3 (10:56→22:35)
[2018-09-04] MEDS: Calcitriol 0.25 MCG CAP PO SCH (11:13)
[2018-09-04] MEDS: Cyanocobalamin (Vitamin B-12) 1,000 MCG TAB PO SCH ×2 (11:14→22:34)
[2018-09-04] MEDS: cycloSPORINE 0.05% Ophthalmic Droperette EA EYE SCH ×2 (11:14→22:36)
[2018-09-04] MEDS: Famotidine 20 MG TAB PO SCH ×2 (11:14→22:35)
[2018-09-04] MEDS: Multivitamin W/ Minerals 1 TAB PO SCH (11:14)
[2018-09-04] MEDS: Fish Oil 1,000 MG CAP PO SCH (11:14)
--- NOTE | 2018-09-04 13:13 | PRG ---
DATE OF SERVICE: 09/04/2018 SUBJECTIVE: Quite frankly, Mr. Jason does not look very good. He is poorly communicative. Whatever I say to him, he will repeat back. He is not alert or oriented, and he has basically been this way for the last 3 days. OBJECTIVE: VITAL SIGNS: On exam, temperature is 98.6, pulse 75, respirations 25, O2 saturation 100%, blood pressure 128/77. GENERAL: Besides his poor communicative skills, he does not look bad. HEENT: Otherwise unremarkable. NECK: No JVD. LUNGS: Coarse rhonchi. CARDIAC: S1, S2. Regular. ABDOMEN: Soft. EXTREMITIES: No edema. LABORATORY DATA: Sodium 137, potassium 3.6, chloride 105, CO2 of 23, BUN 30, creatinine 1.2, glucose 168. White blood cell count 4.9, hematocrit 35.4, and platelet count 74. ASSESSMENT: 1. Encephalopathy. 2. Status post influenza with pneumonia. PLAN: 1. Dobbhoff tube, KUB placement confirmation, and then institute tube feeds. 2. I have reviewed his medication list. I do not see anything specifically that could be leading to his encephalopathy. 3. Would consider Neurology consult in the next 48 hours if we do not see improvement. Job ID: [id number]
--- NOTE | 2018-09-04 14:33 | PDOC.CTH ---
Cardiology Progress Note - Subjective No new issues. - Objective Vital Signs Temp Pulse Resp BP Pulse Ox 09/04/18 11:31 98.6 F 75 25 H 128/77 100 09/04/18 08:03 98.0 F 70 12 113/68 100 09/04/18 08:00 100 09/04/18 04:30 98.6 F 72 20 123/70 100 Admit Weight 205 lb 8 oz Weight 186 lb 6 oz 09/03/18 09/04/18 09/05/18 06:59 06:59 06:59 Intake Total 2362 2760 Output Total 1125 1150 Balance 1237 1610 - Physical Examination General/Neuro: NAD Neck: no JVD present Lungs: unlabored respirations Heart: RRR Abdomen: NT/ND Extremities: + edema B (no edema) - Labs Result Diagrams: 09/04/18 04:57 09/04/18 04:57 Troponin/CKMB Troponin I 0.016 ng/mL (< 0.028) 08/18/18 17:19 - Assessment/Plan 1. Encephalopathy 2. Influenza with pneumonia 3. Non sustained VT. Stable. PLAN: - Continue BB
--- NOTE | 2018-09-04 15:16 | PDOC.PN ---
- Subjective Encounter Start Date: 09/04/18 Encounter Start Time: 15:15 Subjective: Non arousable, has not been eating - Objective Resuscitation Status - Order Detail: 09/04/18 15:09 Resuscitation Status Routine Resuscitation Status: DNAR: NO Resuscitation Discussed with: Patients sister Mark at [phone] Vital Signs & Weight: Vital Signs (12 hours) Temp Pulse Resp BP Pulse Ox 09/04/18 11:31 98.6 F 75 25 H 128/77 100 09/04/18 08:03 98.0 F 70 12 113/68 100 09/04/18 08:00 100 09/04/18 04:30 98.6 F 72 20 123/70 100 Weight Admit Weight 205 lb 8 oz Weight 186 lb 6 oz Most Recent Monitor Data Heart Rate from ECG 70 NIBP 133/68 NIBP BP-Mean 89 Respiration from ECG 15 SpO2 97 I&O: 09/03/18 09/04/18 09/05/18 06:59 06:59 06:59 Intake Total 2362 2760 Output Total 1125 1150 Balance 1237 1610 Result Diagrams: 09/04/18 04:57 09/04/18 04:57 Additional Labs: Accuchecks 09/04/18 09/03/18 09/03/18 04:41 22:09 16:16 POC Glucose 168 H 138 H 168 H Phys Exam - Physical Examination HEENT: PERRLA, moist MMs, sclera anicteric, TM's clear, oral pharynx no lesions , 2+ tonsils Neck: no nodes, no JVD, supple, full ROM labored breathing Cardiovascular: RRR, no significant murmur Gastrointestinal: soft, non-tender, no distention, positive bowel sounds Musculoskeletal: edema present unresponsive Dx/Plan (1) Encephalopathy acute Code(s): G93.40 - ENCEPHALOPATHY, UNSPECIFIED Status: Acute Comment: devin metabolic. CT scan with no acute abnormality. (2) Acute respiratory failure with hypoxia Code(s): J96.01 - ACUTE RESPIRATORY FAILURE WITH HYPOXIA Status: Acute Comment: Extubated 08/30/18 (3) Acute worsening of stage 3 chronic kidney disease Code(s): N18.3 - CHRONIC KIDNEY DISEASE, STAGE 3 (MODERATE) Status: Acute Comment: reasolved (4) Hypernatremia Code(s): E87.0 - HYPEROSMOLALITY AND HYPERNATREMIA Status: Acute Comment: increase free water per dobhoff.resolved (5) Influenza B Code(s): J10.1 - FLU DUE TO OTH IDENT INFLUENZA VIRUS W OTH RESP MANIFEST Status: Acute Comment: treated with Tamiflu (6) Pneumonia Code(s): J18.9 - PNEUMONIA, UNSPECIFIED ORGANISM Status: Acute Qualifiers: Laterality: left Lung location: upper lobe of lung Comment: COMPLETED levofloxacin and cefepime - Plan cont current plan of care, plan discussed w/ family Definetive decline in overall mental status, long discussion with patients sister mark, will change patient to DNT per her request. Will discuss Hospice soon if no improvement. Dobhoff feeds started * .
[2018-09-04 15:59] VITALS: BMI 27.5
--- NOTE | 2018-09-04 16:24 | RAD ---
RADIOGRAPH ABDOMEN ONE VIEW: 09/04/18 at 1:36 p.m. HISTORY: 83-year-old male status post Dobhoff tube placement. FINDINGS: Image centered at level of diaphragm, excluding lung apices, demonstrate Dobhoff feeding tube with d istal tip directed superiorly, in the left upper quadrant. IMPRESSION: Dobhoff feeding tube in proximal/mid stomach. POS: [facility]
--- NOTE | 2018-09-04 18:26 | RAD ---
ABDOMEN ONE VIEW: 09/04/18 HISTORY: Dobhoff tube placement. Evaluate position. FINDINGS/IMPRESSION: Metallic tip of the Dobhoff feeding tube now overlies the expected location of the gastric antrum, di rected more towards the pylorus. Tip is at the expected location of the pylorus. If duodenal position ing is desired, advancing the tube approximately 5-10 cm would likely result in better positioning. POS: [facility]
--- NOTE | 2018-09-04 20:26 | PRG ---
DATE OF SERVICE: 09/04/2018 SUBJECTIVE: The patient noted with the following vital signs. OBJECTIVE: VITAL SIGNS: Afebrile, temperature 99.8, pulse 75, respiratory rate of 17, O2 saturation of 97%, and blood pressure 117/69. HEENT: Unremarkable. CARDIOVASCULAR SYSTEM: First and second heart sounds were heard. RESPIRATORY SYSTEM: Clear to auscultation. DIGESTIVE SYSTEM: Revealed a benign abdomen with positive bowel sounds. EXTREMITIES: No peripheral edema. SKIN: No new gross rash. LYMPHATICS: No peripheral lymphadenopathy. LABORATORY INVESTIGATION: Showed a hemoglobin of 11.4. Chemistry showed a sodium of 137 and creatinine 1.18. IMPRESSION: 1. Hyponatremia, since resolved. 2. Acute kidney injury, which is much improved. PLAN: 1. Monitor the sodium level and avoid precipitating hyponatremia; therefore, we will pay close attention to free water repletion, I asked to not to do it. 2. Further management to be dependent on the clinical course. Job ID: [id number]
[2018-09-05] MEDS: Insulin Regular 300 UNITS/3 ML VIAL SC PRN (04:13)
[2018-09-05 05:23] LABS: Anion Gap 15 mmol/L (10-20); BUN (Urea Nitrogen) 25 mg/dL (8.4-25.7); Calc. Creatinine Clearance 54 mL/min (70-130); Calcium 7.2 mg/dL (7.8-10.44); Carbon Dioxide 19 mmol/L (23-31); Chloride 105 mmol/L (98-107); Estimated GFR-MDRD 55; Glucose 191 mg/dL (83-110); Potassium 3.9 mmol/L (3.5-5.1); Sodium 135 mmol/L (136-145)
[2018-09-05 05:33] LABS: Band 13 % (5-11); Elliptocytes SLIGHT = 2-5 cells (100X) (0-1/hpf); Eosinophils 2 % (0-10); Hemoglobin 10.5 g/dL (14.0-18.0); Lymphocytes 8 % (21-51); MDiff Complete? YES; Mean Corpuscular HGB CONC 33.5 g/dL (32.0-36.0); Mean Corpuscular Hemoglobin 32.1 pg (27.0-31.0); Mean Corpuscular Volume 95.7 fL (78.0-98.0); Mean Platelet Volume 9.8 fL (7.4-10.4); Monocytes 18 % (0-10); Neutrophil 58 % (42-75); Platelet Count 69 thou/uL (130-400); Platelet Morphology Comment Appears Decreased; RBC Distribution Width 14.7 % (11.5-14.5); Reactive Lymphocytes 1 % (0-10); Red Blood Cell (RBC) Count 3.26 mill/uL (4.70-6.10); White Blood Cell (WBC) Count 8.1 thou/uL (4.8-10.8)
[2018-09-05] MEDS: Dextrose 5% in Water 1,000 ML IV SCH ×2 (07:15→20:03)
[2018-09-05] MEDS: Gabapentin 300 MG CAP PO SCH ×2 (10:04→20:01)
[2018-09-05] MEDS: Tamsulosin HCl 0.4 MG CAP PO SCH (10:05)
[2018-09-05] MEDS: Aspirin Chewable 81 MG TAB PO SCH (10:05)
[2018-09-05] MEDS: Amlodipine 10 MG TAB PO SCH (10:05)
[2018-09-05] MEDS: Cyanocobalamin (Vitamin B-12) 1,000 MCG TAB PO SCH ×2 (10:06→20:02)
[2018-09-05] MEDS: Carvedilol 25 MG TAB PO SCH ×2 (10:06→20:03)
[2018-09-05] MEDS: Calcitriol 0.25 MCG CAP PO SCH (10:06)
[2018-09-05] MEDS: Multivitamin W/ Minerals 1 TAB PO SCH (10:06)
[2018-09-05] MEDS: Famotidine/PF 20 mg/2ml Vial SLOW IVP SCH ×2 (10:07→20:04)
[2018-09-05] MEDS: Fish Oil 1,000 MG CAP PO SCH (10:07)
[2018-09-05] MEDS: Famotidine 20 MG TAB PO SCH ×2 (10:07→20:04)
[2018-09-05] MEDS: Acetaminophen 325 MG TAB PO PRN ×2 (10:20→20:02)
[2018-09-05] MEDS: hydrALAZINE 10 MG TAB PO SCH ×3 (10:20→20:02)
[2018-09-05] MEDS: NPH, Human Insulin Isophane 300 UNIT/3 ML VIAL SC SCH ×2 (10:21→20:44)
--- NOTE | 2018-09-05 11:04 | PDOC.CTH ---
Cardiology Progress Note - Subjective Remains unresponsive. - Objective Vital Signs Temp Pulse Resp BP Pulse Ox 09/05/18 10:20 77 09/05/18 10:05 77 09/05/18 08:00 99.7 F H 77 28 H 111/60 98 09/05/18 05:00 95 09/05/18 04:00 99.8 F H 70 24 H 112/48 L 100 09/05/18 00:47 99.2 F 70 18 91/45 L 95 Admit Weight 205 lb 8 oz Weight 191 lb 09/04/18 09/05/18 09/06/18 06:59 06:59 06:59 Intake Total 2760 1324 Output Total 1150 350 Balance 1610 974 - Physical Examination General/Neuro: NAD Neck: no JVD present Lungs: unlabored respirations Heart: RRR Abdomen: NT/ND Extremities: other: (no edema) - Telemetry Telemetry Rhythm: NSR, NS VT - Labs Result Diagrams: 09/05/18 04:57 09/05/18 04:57 Troponin/CKMB Troponin I 0.016 ng/mL (< 0.028) 08/18/18 17:19 - Assessment/Plan 1. Encephalopathy 2. Influenza with pneumonia 3. Non sustained VT. Stable. PLAN: - He now has a Dobhoff tube and will get his PO BB without issues. - No new recs. - Poor petroleum terminal plant operator prognosis.
[2018-09-05] MEDS: cycloSPORINE 0.05% Ophthalmic Droperette EA EYE SCH ×2 (13:31→20:44)
--- NOTE | 2018-09-05 13:59 | PRG ---
DATE OF SERVICE: 09/05/2018 SUBJECTIVE: He is actually more awake than he was yesterday. He is able to follow commands and answer questions. OBJECTIVE: VITAL SIGNS: On exam, temperature 98.6, pulse 73, respirations 20, O2 saturation 100%, blood pressure 103/58. HEENT: His tongue is midline. Dry oral mucous membranes. NECK: No JVD. CHEST: Clear. CARDIAC: S1, S2. Regular. ABDOMEN: Soft. EXTREMITIES: No edema. LABORATORY DATA: White blood cell count 8.1, hematocrit 31.2, and platelet count 69. Sodium 135, potassium 3.9, BUN 25, creatinine 1.3, glucose 191. ASSESSMENT: 1. The patient has a slightly improved encephalopathy over yesterday. 2. Status post influenza with pneumonia. PLAN: 1. Continue enteral tube feedings through Dobhoff tube. 2. Otherwise, continue supportive care and leave in [facility] for the time being. Job ID: [id number]
--- NOTE | 2018-09-05 15:01 | PDOC.PN ---
- Subjective Encounter Start Date: 09/05/18 Encounter Start Time: 14:59 Subjective: MINIMAL RESPONSE, DOBHOFF - Objective Resuscitation Status - Order Detail: 09/04/18 15:09 Resuscitation Status Routine Resuscitation Status: DNAR: NO Resuscitation Discussed with: Patients sister Laurel at [phone] Vital Signs & Weight: Vital Signs (12 hours) Temp Pulse Resp BP Pulse Ox 09/05/18 12:00 98.6 F 73 20 103/58 L 100 09/05/18 10:20 77 09/05/18 10:05 77 09/05/18 08:00 99.7 F H 77 28 H 111/60 98 09/05/18 05:00 95 09/05/18 04:00 99.8 F H 70 24 H 112/48 L 100 Weight Admit Weight 205 lb 8 oz Weight 191 lb Most Recent Monitor Data Heart Rate from ECG 70 NIBP 133/68 NIBP BP-Mean 89 Respiration from ECG 15 SpO2 97 I&O: 09/04/18 09/05/18 09/06/18 06:59 06:59 06:59 Intake Total 2760 2524 200 Output Total 1150 800 Balance 1610 1724 200 Result Diagrams: 09/05/18 04:57 09/05/18 04:57 Additional Labs: Accuchecks 09/05/18 09/05/18 09/05/18 10:13 07:12 03:56 POC Glucose 198 H 222 H 231 H 09/04/18 09/04/18 22:43 17:55 POC Glucose 166 H 146 H Phys Exam - Physical Examination HEENT: PERRLA, sclera anicteric, TM's clear DRY Oral mucosa, dobhoff Neck: no nodes, no JVD open mouth breathing, snoring loudly Cardiovascular: RRR, no significant murmur Gastrointestinal: soft, non-tender, no distention Musculoskeletal: edema present aletred, non arousable, minimal response Dx/Plan (1) Encephalopathy acute Code(s): G93.40 - ENCEPHALOPATHY, UNSPECIFIED Status: Acute Comment: [facility] metabolic. CT scan with no acute abnormality. Poor [facility] prognosis, steady decline in overall ental faculties, minimally arousable, DW Sister and changed patient to DNR. I have requested Palliative team to DW SISTER FOR hOSPICE AN OPTION. If not DC to [facility]. (2) Acute respiratory failure with hypoxia Code(s): J96.01 - ACUTE RESPIRATORY FAILURE WITH HYPOXIA Status: Acute Comment: Extubated 08/30/18 (3) Acute worsening of stage 3 chronic kidney disease Code(s): N18.3 - CHRONIC KIDNEY DISEASE, STAGE 3 (MODERATE) Status: Acute Comment: reasolved (4) Hypernatremia Code(s): E87.0 - HYPEROSMOLALITY AND HYPERNATREMIA Status: Acute Comment: increase free water per dobhoff.resolved (5) Influenza B Code(s): J10.1 - FLU DUE TO OTH IDENT INFLUENZA VIRUS W OTH RESP MANIFEST Status: Acute Comment: treated with Tamiflu (6) Pneumonia Code(s): J18.9 - PNEUMONIA, UNSPECIFIED ORGANISM Status: Acute Qualifiers: Laterality: left Lung location: upper lobe of lung Comment: COMPLETED levofloxacin and cefepime - Plan cont current plan of care, social sciences chair * .
[2018-09-06] MEDS: Dextrose 5% in Water 1,000 ML IV SCH ×2 (02:52→17:29)
--- NOTE | 2018-09-06 09:43 | PRG ---
DATE OF SERVICE: 09/06/2018 SUBJECTIVE: Mr. Jason is surprisingly better. He is conversant this morning. OBJECTIVE: VITAL SIGNS: Temperature 99.1, pulse 70, respirations 23, O2 saturation 99% on 2 L, blood pressure 107/53. HEENT: Unremarkable. NECK: Without adenopathy, JVD, or bruits. LUNGS: Clear anteriorly. CARDIAC: S1 and S2, regular. ABDOMEN: Soft. EXTREMITIES: No edema. ASSESSMENT: 1. Improved encephalopathy. 2. Status post respiratory failure related to influenza pneumonia. PLAN: 1. Continue supportive care with enteral tube feeds. 2. Recheck his labs tomorrow. Job ID: [id number]
[2018-09-06] MEDS: Carvedilol 25 MG TAB PO SCH (09:50)
[2018-09-06] MEDS: Fish Oil 1,000 MG CAP PO SCH (09:50)
[2018-09-06] MEDS: Calcitriol 0.25 MCG CAP PO SCH (09:50)
[2018-09-06] MEDS: Famotidine 20 MG TAB PO SCH (09:50)
[2018-09-06] MEDS: Acetaminophen 325 MG TAB PO PRN (09:50)
[2018-09-06] MEDS: Aspirin Chewable 81 MG TAB PO SCH (09:51)
[2018-09-06] MEDS: Cyanocobalamin (Vitamin B-12) 1,000 MCG TAB PO SCH (09:51)
[2018-09-06] MEDS: Amlodipine 10 MG TAB PO SCH (09:51)
[2018-09-06] MEDS: Gabapentin 300 MG CAP PO SCH (09:51)
[2018-09-06] MEDS: Tamsulosin HCl 0.4 MG CAP PO SCH (09:51)
[2018-09-06] MEDS: Multivitamin W/ Minerals 1 TAB PO SCH (09:52)
[2018-09-06] MEDS: Famotidine/PF 20 mg/2ml Vial SLOW IVP SCH (09:54)
[2018-09-06] MEDS: hydrALAZINE 10 MG TAB PO SCH ×2 (10:01→17:29)
[2018-09-06] MEDS: cycloSPORINE 0.05% Ophthalmic Droperette EA EYE SCH (10:02)
[2018-09-06] MEDS: NPH, Human Insulin Isophane 300 UNIT/3 ML VIAL SC SCH (10:03)
[2018-09-06 13:38] LABS: Hemoglobin 10.7 g/dL (14.0-18.0); Mean Corpuscular HGB CONC 31.4 g/dL (32.0-36.0); Mean Corpuscular Hemoglobin 31.1 pg (27.0-31.0); Mean Corpuscular Volume 99.2 fL (78.0-98.0); Mean Platelet Volume 10.2 fL (7.4-10.4); Platelet Count 59 thou/uL (130-400); RBC Distribution Width 14.8 % (11.5-14.5); Red Blood Cell (RBC) Count 3.45 mill/uL (4.70-6.10); White Blood Cell (WBC) Count 5.9 thou/uL (4.8-10.8)
[2018-09-06 14:05] LABS: Anion Gap 13 mmol/L (10-20); BUN (Urea Nitrogen) 39 mg/dL (8.4-25.7); Calc. Creatinine Clearance 39 mL/min (70-130); Calcium 8.5 mg/dL (7.8-10.44); Carbon Dioxide 24 mmol/L (23-31); Chloride 100 mmol/L (98-107); Estimated GFR-MDRD 37; Glucose 150 mg/dL (83-110); Sodium 133 mmol/L (136-145)
[2018-09-06 14:21] LABS: Anisocytosis SLIGHT = 6-15 cells (100X) (0-5/hpf); Band 6 % (5-11); Burr Cells SLIGHT = 2-5 cells (100X) (0-1/hpf); Lymphocytes 10 % (21-51); MDiff Complete? YES; Monocytes 13 % (0-10); Neutrophil 69 % (42-75); Ovalocytes SLIGHT = 2-5 cells (100X) (0-1/hpf); Platelet Morphology Comment Appears Decreased; Polychromasia SLIGHT = 2-3 cells (100X) (0-2/hpf); Reactive Lymphocytes 2 % (0-10); Tear Drops SLIGHT = 2-5 cells (100X) (0-1/hpf)
[2018-09-06 15:21] VITALS: BP 99/49; TEMP 98.2
[2018-09-06] MEDS ORDERED: Atorvastatin Calcium 20 MG TAB PO SCH (21:00)
--- NOTE | 2018-09-07 06:03 | DIS ---
DATE OF ADMISSION: 08/18/2018 DATE OF DISCHARGE: 09/06/2018 ADMISSION DIAGNOSES: 1. Acute hypoxemic respiratory failure, likely due to pneumonia and flu. 2. Sepsis secondary to influenza. 3. Left lung pneumonia, community-acquired pneumonia. 4. Acute on chronic kidney disease. 5. History of atrial fibrillation. 6. Coronary artery disease. 7. Hyperlipidemia. 8. Hypertension. DISCHARGE DIAGNOSES: 1. Metabolic encephalopathy. 2. Sepsis due to flu and pneumonia, resolved. 3. Acute hypoxemic respiratory failure, resolved. 4. Chronic kidney disease. 5. Atrial fibrillation. 6. Nonsustained ventricular tachycardia. 7. Hyperlipidemia. 8. Hypertension. 9. Coronary artery disease. HISTORY OF PRESENTING ILLNESS: This is an 83-year-old male with a past medical history of coronary artery disease, atrial fibrillation, hypertension, prostate cancer with resection, PVD, neuropathy, pacemaker, came to the ER with complaints of not feeling well and he was found to be hypotensive. The patient was found to be in acute hypoxemic respiratory failure due to pneumonia and flu and was admitted for respiratory support, Tamiflu, and IV antibiotics. The patient responded to the IV antibiotics and Tamiflu, and pulmonary foss did well, but subsequently due to unknown reasons or due to the metabolic encephalopathy with infections, he was altered. The patient had some episodes of nonsustained VT that was stable. The patient did not really recover from his neurological status, remained very altered, confused, was minimally arousable, and was treated with Dobhoff feeds for a few days. Subsequently, he was minimally arousable, would eat some, and the patient's sister upon extensive discussion decided to make the patient DNR. The patient was then transferred to [facility]. DISCHARGE INSTRUCTIONS: 1. The patient to take the medications as being prescribed. 2. Follow up with the primary care physician. 3. PT and OT and Speech to evaluate and treat. Job ID: [id number]
== END 2018-09-06 19:00 | DRG 853 ==
LOC: ERS 16:40 → 2SE 22:37 → IMCU/EMU 08-19 04:39 → CCU 08-20 09:35 → IMCU/EMU 08-31 20:11
PROVIDERS: ADMIT Internal Medicine; ATTEND Internal Medicine
PROC: 5A09357 Assistance with Respiratory Ventilation, Less than 24 Consecutive Hours, Continuous Positive Airway Pressure (ICD-10-PCS; 2018-08-19)
PROC: 0BH17EZ Insertion of Endotracheal Airway into Trachea, Via Natural or Artificial Opening (ICD-10-PCS; principal; 2018-08-20)
PROC: 0W3Q8ZZ Control Bleeding in Respiratory Tract, Via Natural or Artificial Opening Endoscopic (ICD-10-PCS; 2018-08-20)
PROC: 5A1955Z Respiratory Ventilation, Greater than 96 Consecutive Hours (ICD-10-PCS; 2018-08-20)
PROC: 0B9F8ZZ Drainage of Right Lower Lung Lobe, Via Natural or Artificial Opening Endoscopic (ICD-10-PCS; 2018-08-24)
PROC: 0B9C8ZZ Drainage of Right Upper Lung Lobe, Via Natural or Artificial Opening Endoscopic (ICD-10-PCS; 2018-08-24)
PROC: 0B9G8ZZ Drainage of Left Upper Lung Lobe, Via Natural or Artificial Opening Endoscopic (ICD-10-PCS; 2018-08-24)
PROC: 0B9D8ZZ Drainage of Right Middle Lung Lobe, Via Natural or Artificial Opening Endoscopic (ICD-10-PCS; 2018-08-24)
PROC: 0BC78ZZ Extirpation of Matter from Left Main Bronchus, Via Natural or Artificial Opening Endoscopic (ICD-10-PCS; 2018-08-24)
PROC: 0B938ZZ Drainage of Right Main Bronchus, Via Natural or Artificial Opening Endoscopic (ICD-10-PCS; 2018-08-24)
PROC: 0B9J8ZZ Drainage of Left Lower Lung Lobe, Via Natural or Artificial Opening Endoscopic (ICD-10-PCS; 2018-08-30)
PROC: 0B9C8ZZ Drainage of Right Upper Lung Lobe, Via Natural or Artificial Opening Endoscopic (ICD-10-PCS; 2018-08-30)
DX: A41.89 Other specified sepsis (principal); J10.00 Influenza due to other identified influenza virus with unspecified type of pneumonia; J96.01 Acute respiratory failure with hypoxia; G93.41 Metabolic encephalopathy; J95.62 Intraoperative hemorrhage and hematoma of a respiratory system organ or structure complicating other procedure; N17.9 Acute kidney failure, unspecified; I13.0 Hypertensive heart and chronic kidney disease with heart failure and stage 1 through stage 4 chronic kidney disease, or unspecified chronic kidney disease; I50.32 Chronic diastolic (congestive) heart failure; T17.890A Other foreign object in other parts of respiratory tract causing asphyxiation, initial encounter; E87.1 Hypo-osmolality and hyponatremia; E87.0 Hyperosmolality and hypernatremia; E87.2 Acidosis; I47.2 Ventricular tachycardia; I25.10 Atherosclerotic heart disease of native coronary artery without angina pectoris; I48.2 Chronic atrial fibrillation; Z66 Do not resuscitate; I73.9 Peripheral vascular disease, unspecified; G62.9 Polyneuropathy, unspecified; E87.5 Hyperkalemia; D69.6 Thrombocytopenia, unspecified; D63.8 Anemia in other chronic diseases classified elsewhere; N18.3 Chronic kidney disease, stage 3 (moderate); Z85.46 Personal history of malignant neoplasm of prostate; Z88.0 Allergy status to penicillin; Z88.8 Allergy status to other drugs, medicaments and biological substances; Z79.01 Long term (current) use of anticoagulants; Z79.899 Other long term (current) drug therapy; Z95.2 Presence of prosthetic heart valve; Z95.1 Presence of aortocoronary bypass graft; X58.XXXA Exposure to other specified factors, initial encounter
CPT/HCPCS: 36415; 36416; 70450; 71045; 74018; 80048; 80053; 80069; 81003; 82550; 82805; 83605; 84484; 85025; 87040; 87070; 87086; 87205; 87804; 93005; 93306; 94002; 94003; 94640; 94660; 96361; 96365; 96367; J0171; J0360; J0456; J0692; J0696; J1630; J1815; J1956; J2250; J2270; J2704; J2920; J3010; J3411; J7050; J7070; J7620; S0028